=== PATIENT | female | born 1950 | race African-American/Black ===

== ENCOUNTER 2016-05-17 18:05 | Emergency (ER) | payer OTHER, MEDICARE ==
[~2016-05-17] VITALS: Ht 167.6 cm; Wt 83.0 kg
[~2016-05-17 18:05] MED LIST: ADALAT CC90 M1 PO; ALBUTEROL2.5 MG/3 M INH/SOL; AZITHROMYCIN250 M1 PO; BACID CAPLET1 EACH PO; CITRACAL + D M1 EACH PO; COREG25 M1 PO; COZAAR100 M1 PO; CYCLOBENZAPRINE5 M2 PO; CYMBALTA60 M1 PO; DELTASONE20 MG PO; DILANTIN100 M1 PO; DIOVAN40 MG PO; FLOVENT HFA12 G1 INH; KLONOPIN1 M1 PO; LASIX20 M1 PO; LASIX40 M1 PO; LIPITOR40 M1 PO; LYRICA75 M1 PO; MEDROL4 M2 PO; MILK OF MA400 MG/52 PO; NASONEX17 GM NASB; NEXIUM40 M1 PO; NITROSTAT0.4 M1 SL; PERCOCET 5-3251 EACH PO; PREDNISONE10 M2 PO; PREDNISONE20 M1 PO; PREDNISONE50 M1 PO; SPIRIVA18 MCG INH; TYLENOL WITH C1 EACH PO
--- NOTE | 2016-05-17 19:16 | ED GENERAL ADULT ---
History of Present Illness General Chief Complaint: General Adult Stated Complaint: PAIN ALL OVER, FOOT NUMBNESS Source: patient, family, old records Exam Limitations: no limitations Vital Signs & Intake/Output Vital Signs & Intake/Output Vital Signs Date Time Temp Pulse Resp B/P Pulse O2 O2 Flow FiO2 Ox Delivery Rate 05/17 1927 96 Nasal 3.0L Cannula 05/17 1852 98.7 81 22 178/96 88 Room Air Allergies Coded Allergies: SHANI Inhibitors (Severe, ANGIODEMA 05/17/16) Penicillins (Severe, ANGIODEMA 05/17/16) shellfish derived (UNKNOWN PER PT EATS SHRIMP FINE 05/17/16) aspirin (BODY BREAKS OUT IN SWEATS, GI UPSET 05/17/16) Reconcile Medications Albuterol Sulfate 2.5 MG/3 ML VIAL.NEB 1 Vial INH/SHIRA Q4P PRN wheezing/ shortness of breath Atorvastatin Calcium (Lipitor) 40 MG TABLET 1 TAB PO QPM CHOLESTEROL ( Reported) Calcium Citrate/Vitamin D3 (Citracal + D Maximum Caplet) 1 EACH TABLET 1 TAB PO DAILY SUPPLEMENT (Reported) Carvedilol (Coreg) 25 MG TABLET 1 TAB PO BID HEART (Reported) Clonazepam (Klonopin) 1 MG TABLET 1 TAB PO QAM PRN ANXIETY (Reported) Duloxetine HCl (Cymbalta) 60 MG CAPSULE.DR 1 CAP PO DAILY MENTAL HEALTH ( Reported) Esomeprazole (Nexium) 40 MG CAPSULE.DR 1 CAP PO DAILY GI (Reported) Fluticasone Propionate (Flovent Hfa) 12 GM AER.W.ADAP 2 PUF INH BID PRN BREATHING PROBLEMS (Reported) Furosemide (Lasix) 40 MG TABLET 1 TAB PO DAILY HEART FAILURE Reason to Stop at ADM: change to IV Mometasone Furoate (Nasonex) 17 GM SPRAY.PUMP 1 SPRAY NASB DAILY PRN ALLERGIES (Reported) Nifedipine (Adalat Cc) 90 MG TABLET.ER 1 TAB PO DAILY HEART (Reported) Oxycodone HCl/Acetaminophen (Percocet 5-325 MG Tablet) 1 EACH TABLET 1 TAB PO TID PRN PAIN Phenytoin (Dilantin) 100 MG CAPSULE 2 CAP PO BID SEIZURES (Reported) Prednisone (Deltasone) 20 MG TABLET 2 TAB PO ONCE COPD Tiotropium [place] (Spiriva) 18 MCG CAP.W.DEV 1 CAP INH DAILY BREATHING PROBLEMS (Reported) Tylenol With Codeine (Tylenol With Codeine #3 Tablet) 1 EACH TABLET 1 TAB PO TID PRN PAIN (Reported) Valsartan (Diovan) 40 MG TABLET 1 TAB PO BID HEART Triage Note: TRIAGE: PT TO ER C/C PAIN TO BACK AND UNDER HER FOOT. BACK PAIN IS CHRONIC, HAD CORTIZONE SHOT FOR SAME IN ?FEBRUARY WHICH SHE THINKS HAS WORN OFF. FOOT PAIN HAS BEEN APPROX 1 WK. NO KNOWN INJURY. PT PMHX INCLUDES COPD, O2 DEPENDENT AT 3L AT BASELINE. O2 SATS 85% AT TRIAGE, NIECE STATES SHE'S USUALLY IN 90'S BUT "THIS TANK IS ALMOST EMPTY". PT DENIES ANY RESPIRATORY DIFFICULTY AT PRESENT, STATES BREATHING FEELS "ALL RIGHT". Triage Nurses Notes Reviewed? yes HPI: Patient has chronic numbness in both of her hands and her feet for the past few years. Patient states that over the past month and a half she has also felt a numbness in her abdomen and chest. Patient denies any pain. The numbness is constant. There are no aggravating or mitigating factors. There is no shortness of breath. Patient is chronically on home O2. Patient denies any orthopnea. There is no anorexia. There is no nausea or vomiting. Patient became concerned so comes into the emergency department for evaluation. Patient denies any trunk weakness. There is no incontinence of bowel or bladder. Past History Travel History Traveled to [place] past 21 day No Medical History Any Pertinent Medical History? 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 FATHER (CVA). Hx Contributory? No Review of Systems Review of Systems Constitutional: Reports: no symptoms. EENTM: Reports: no symptoms. Respiratory: Reports: no symptoms. Cardiovascular: Reports: no symptoms. GI: Reports: no symptoms. Genitourinary: Reports: no symptoms. Musculoskeletal: Reports: no symptoms. Skin: Reports: no symptoms. Neurological/Psychological: Reports: see HPI. Hematologic/Endocrine: Reports: no symptoms. Immunologic/Allergic: Reports: no symptoms. All Other Systems: Reviewed and Negative Physical Exam Physical Exam General Appearance: well developed/nourished, alert, awake, anxious, mild distress Head: atraumatic, normal appearance Eyes: Bilateral: PERRL, EOMI. Ears, Nose, Throat: normal pharynx, normal ENT inspection, hearing grossly normal Neck: normal inspection, supple, full range of motion Respiratory: normal breath sounds, chest non-tender, no respiratory distress, lungs clear Cardiovascular: regular rate/rhythm, normal peripheral pulses Gastrointestinal: normal bowel sounds, soft, non-tender, no organomegaly Extremities: normal inspection, normal capillary refill, normal range of motion, no edema Neurologic/Psych: no motor/sensory deficits, awake, alert, oriented x 3, normal mood/affect Skin: intact, normal color, warm/dry Core Measures ACS in differential dx? No CVA/TIA Diagnosis: No Severe Sepsis Present: No Septic Shock Present: No Progress Differential Diagnoses I considered the following diagnoses in my evaluation of the patient: [AMI, ELECTROLYTE ABNORMALITY] Plan of Care: Orders Procedure Date/time Status Telemetry/Preforms Laminator 05/17 1911 Active TROPONIN LEVEL 05/17 1911 Complete D-DIMER 05/17 1911 Complete COMPREHENSIVE METABOLIC PANEL 05/17 1911 Complete CBC WITHOUT DIFFERENTIAL 05/17 1911 Complete EKG 05/17 1911 Active Laboratory Tests 05/17/161930: Anion Gap 6, Estimated GFR 35 L, BUN/Creatinine Ratio 17.3, Glucose 81, Calcium 8.7, Total Bilirubin 0.4, AST 34, ALT 45, Alkaline Phosphatase 130 H, Troponin I 0.04, Total Protein 7.0, Albumin 3.5, Globulin 3.5, Albumin/Globulin Ratio 1.0 L, D-Dimer 277 H, CBC w Diff NO MAN DIFF REQ, RBC 4.74, MCV 78.0 L, MCH 25.6 L, RDW 16.9 H, MPV 7.4, Gran % 61.0, Lymphocytes % 24.7, Monocytes % 11.7 H, Eosinophils % 2.5, Basophils % 0.1, Absolute Granulocytes 4.0, Absolute Lymphocytes 1.6, Absolute Monocytes 0.8 H, Absolute Eosinophils 0.2, Absolute Basophils 0, PUBS MCHC 32.8 L Diagnostic Imaging: Viewed by Me: Radiology Read. Discussed w/RAD: Radiology Read. CXR Impression: PATIENT: JUNIOR ASENCIO PRESENT AGE: 66 PATIENT ACCOUNT NO: [id number] : 49 LOCATION: [facility] ORDERING PHYSICIAN: MAICO PALACIOS MD SERVICE DATE: 05/17/16 EXAM TYPE: RAD - XRY- PORTABLE CHEST XRAY EXAMINATION: XR PORTABLE CHEST CLINICAL INFORMATION: Chest pain. COMPARISON: Chest x-ray 11/15/2015. TECHNIQUE: Portable AP view of the chest was obtained. FINDINGS: Single AP view of the chest demonstrates pulmonary hypoinflation. There is minimal dependent subsegmental atelectasis. Redemonstrated is prominence of the cardiac silhouette and mild central venous congestion. No overt pulmonary edema is identified. There are median sternotomy wires, grossly unchanged. Soft tissues appear unremarkable. No acute osseous abnormality is identified. IMPRESSION: Stable prominence of the cardiac silhouette, without overt pulmonary edema. Mild pulmonary hypoinflation with minimal dependent atelectasis. DICTATED BY: KAVITHA SAEED MD DATE/TIME DICTATED:05/17/162022 PUBLISHER ASSISTANT:EDIS DATE/TIME TRANSCRIBED:2022 CONFIDENTIAL, DO NOT COPY WITHOUT APPROPRIATE AUTHORIZATION. < Electronically signed in Other Vendor System> SIGNED BY: KAVITHA SAEED MD 05/17/162026 Initial ED EKG: NSR, LVH, nonspecific ST T wave chg Prior EKG: unchanged Rhythm Strip: normal sinus rhythm Comments: No evidence of transverse myelitis or other central neurological etiology. Departure Departure Disposition: HOME OR SELF CARE Condition: Stable Clinical Impression Primary Impression: Chest pain, unspecified Qualifiers: Chest pain type: other chest pain Qualified Code: R07.89 - Other chest pain Referrals: SHELLY TRUONG MD (PCP/Family) Additional Instructions: RETURN IF SYMPTOMS WORSEN OR NEEDED Departure Forms: Customer Survey General Discharge Information Critical Care Note Critical Care Note Critical Care Time: non-applicable
[2016-05-17 19:52] LABS: ABSOLUTE BASOPHIL COUNT 0 /CUMM (0.0-0.2); ABSOLUTE EOSINOPHIL COUNT 0.2 /CUMM (0.0-0.7); ABSOLUTE LYMPH COUNT 1.6 /CUMM (1.2-3.4); ABSOLUTE MONOCYTE COUNT 0.8 /CUMM (0.10-0.60); BASOPHIL % 0.1 % (0.0-2.0); EOSINOPHIL % 2.5 % (0-5); MEAN CORPUSCULAR HGB 25.6 PG (27.0-31.0); MEAN CORPUSCULAR HGB CONC 32.8 G/DL (33.0-37.0); MEAN PLATELET VOLUME 7.4 FL (7.4-10.4); PLATELET COUNT 165 /CUMM (130-400); RBC DISTRIBUTION WIDTH 16.9 % (11.5-14.5); RED BLOOD CELL CT 4.74 /CUMM (4.20-5.40); WHITE BLOOD CELL COUNT 6.6 /CUMM (4.8-10.8)
--- NOTE | 2016-05-17 20:27 | RADIOLOGY REPORT ---
EXAMINATION: XR PORTABLE CHEST CLINICAL INFORMATION: Chest pain. COMPARISON: Chest x-ray 11/15/2015. TECHNIQUE: Portable AP view of the chest was obtained. FINDINGS: Single AP view of the chest demonstrates pulmonary hypoinflation. There is minimal dependent subsegmental atelectasis. Redemonstrated is prominence of the cardiac silhouette and mild central venous congestion. No overt pulmonary edema is identified. There are median sternotomy wires, grossly unchanged. Soft tissues appear unremarkable. No acute osseous abnormality is identified. IMPRESSION: Stable prominence of the cardiac silhouette, without overt pulmonary edema. Mild pulmonary hypoinflation with minimal dependent atelectasis.
[2016-05-17 20:49] VITALS: BP 165/90
== END 2016-05-17 21:00 ==
LOC: ERH 18:05
PROVIDERS: Emergency Medicine
DX: R07.9 Chest pain, unspecified (principal)
CPT/HCPCS: 93005; 93010

== ENCOUNTER 2016-05-19 22:37 | Inpatient (IN) | payer OTHER, MEDICARE ==
[~2016-05-19] VITALS: Ht 162.6 cm; Wt 83.0 kg
--- NOTE | 2016-05-19 22:52 | ED CARDIAC/CP/PALPITATIONS ---
History of Present Illness General Chief Complaint: Chest Pain Stated Complaint: SOB,CHEST PRESSURE Source: patient, family Exam Limitations: no limitations Vital Signs & Intake/Output Vital Signs & Intake/Output Vital Signs Date Time Temp Pulse Resp B/P Pulse O2 O2 Flow FiO2 Ox Delivery Rate 05/19 2338 77 22 149/80 93 Nasal 3.0L Cannula 05/19 2315 Nasal Cannula 05/19 2308 97.3 84 22 166/94 94 Nasal 3.0L Cannula ED Intake and Output 05/20 0000 05/19 1200 Intake Total 0 Output Total Balance 0 Intake, Oral 0 Patient 180 lb Weight Allergies Coded Allergies: SHANI Inhibitors (Severe, ANGIODEMA 05/17/16) Penicillins (Severe, ANGIODEMA 05/17/16) shellfish derived (UNKNOWN PER PT EATS SHRIMP FINE 05/17/16) aspirin (BODY BREAKS OUT IN SWEATS, GI UPSET 05/17/16) Reconcile Medications Albuterol Sulfate (Proair Hfa) 90 MCG HFA.AER.AD 2 PUF INH PRN RESPIRATORY ( Reported) Albuterol Sulfate 2.5 MG/3 ML VIAL.NEB 1 Vial INH/SHIRA Q4P PRN wheezing/ shortness of breath Atorvastatin Calcium (Lipitor) 40 MG TABLET 1 TAB PO QPM CHOLESTEROL ( Reported) Calcium Citrate/Vitamin D3 (Citracal + D Maximum Caplet) 1 EACH TABLET 1 TAB PO DAILY SUPPLEMENT (Reported) Carvedilol (Coreg) 25 MG TABLET 1 TAB PO BID HEART (Reported) Clonazepam (Klonopin) 1 MG TABLET 1 TAB PO QAM PRN ANXIETY (Reported) Duloxetine HCl (Cymbalta) 60 MG CAPSULE.DR 1 CAP PO DAILY MENTAL HEALTH ( Reported) Fluticasone Propionate (Flovent Hfa) 12 GM AER.W.ADAP 2 PUF INH BID PRN BREATHING PROBLEMS (Reported) Fluticasone/Vilanterol (Breo Ellipta 100-25 Mcg INH) 100 MCG-25 MCG/DOSE BLST.W.DEV 1 PUFF INH DAILY RESPIRATORY (Reported) Furosemide (Lasix) 40 MG TABLET 1 TAB PO DAILY HEART FAILURE Reason to Stop at ADM: change to IV Gabapentin 100 MG CAPSULE 1 CAP PO TID UNKNOWN (Reported) Metoprolol Tartrate 50 MG TABLET 1 TAB PO BID HEART/BP (Reported) Mometasone Furoate (Nasonex) 17 GM SPRAY.PUMP 1 SPRAY NASB DAILY PRN ALLERGIES (Reported) Nifedipine (Adalat Cc) 90 MG TABLET.ER 1 TAB PO DAILY HEART (Reported) Omeprazole 40 MG CAPSULE.DR 1 CAP PO DAILY GI (Reported) Phenytoin (Dilantin) 100 MG CAPSULE 2 CAP PO BID SEIZURES (Reported) Tiotropium [place] (Spiriva) 18 MCG CAP.W.DEV 1 CAP INH DAILY BREATHING PROBLEMS (Reported) Tylenol With Codeine (Tylenol With Codeine #3 Tablet) 1 EACH TABLET 1 TAB PO TID PRN PAIN (Reported) Valsartan (Diovan) 40 MG TABLET 1 TAB PO BID HEART Triage Nurses Notes Reviewed? yes Onset: Gradual Duration: day(s): Timing: recent history Quality/Severity: moderate Location: central Radiation: no radiation Activities at Onset: none Prior Chest Pain/Card Workup: cabg Aspirin Today: no aspirin today, pt allergic Associated Symptoms: chest pressure, weakness HPI: 66 yo woman with copd, on 3 liters, h/o cabg, diabetes, Presents with chest pressure, shortness of breath, orthopnea. She states, "it feels like someone is standing on my chest, and I can't breathe." She notes that she has had these symptoms intermittently for the past 1-2 days. She has no fever chills sputum. She does note increased weakness and feels, "swollen all over." Past History Travel History Traveled to [place] past 21 day No Medical History Any Pertinent Medical History? 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 FATHER (CVA). Hx Contributory? No Review of Systems Review of Systems Constitutional: Reports: no symptoms. EENTM: Reports: no symptoms. Respiratory: Reports: no symptoms. Cardiovascular: Reports: no symptoms. GI: Reports: no symptoms. Genitourinary: Reports: no symptoms. Musculoskeletal: Reports: no symptoms. Skin: Reports: no symptoms. Neurological/Psychological: Reports: no symptoms. Hematologic/Endocrine: Reports: no symptoms. Immunologic/Allergic: Reports: no symptoms. All Other Systems: Reviewed and Negative Physical Exam Physical Exam General Appearance: well developed/nourished, mild distress, moderate distress Head: atraumatic, normal appearance Eyes: Bilateral: normal appearance. Ears, Nose, Throat: normal pharynx, normal ENT inspection Neck: normal inspection, supple, full range of motion Respiratory: normal breath sounds, diminished breath sounds at bases Cardiovascular: regular rate/rhythm Gastrointestinal: normal bowel sounds, soft, non-tender Extremities: trace edema bilaterally Skin: intact, normal color, warm/dry Core Measures ACS in differential dx? Yes ASA ordered for poss ACS? No-d/t known allergy Severe Sepsis Present: No Septic Shock Present: No Progress Differential Diagnosis: AMI, CHF/pulm edema, unstable angina, vs other Plan of Care: Orders Procedure Date/time Status Nothing by Mouth 05/20 B Active RAPID VIRAL INFLUENZA A 05/20 0120 Active URINE DRUGS OF ABUSE 05/20 0119 Active URINALYSIS 05/20 0119 Active Patient Data 05/20 0000 Active Saline Lock 05/19 2355 Active Misc Message 05/19 2355 Active ED Holding Orders 05/19 2355 Active Admit to inpatient 05/19 2355 Active Vital Signs 05/19 2355 Active BLOOD CULTURE 05/19 2355 Active Code Status 05/19 2355 Active EKG 05/19 2354 Active BLOOD CULTURE 05/19 2353 Active Intake & Output 05/19 2310 Active D-DIMER 05/19 2241 Complete TROPONIN LEVEL 05/19 2239 Complete PARTIAL THROMBOPLASTIN TIME 05/19 224 Complete PROTHROMBIN TIME 05/19 224 Complete COMPREHENSIVE METABOLIC PANEL 05/19 224 Complete CBC WITHOUT DIFFERENTIAL 05/19 2239 Complete B-TYPE NATRIURETIC PEP (BNP) 05/19 2239 Complete EKG 05/19 224 Active Laboratory Tests 05/19/16 2304: D-Dimer 242 H 05/19/16 2304: Anion Gap 7, Estimated GFR 38 L, BUN/Creatinine Ratio 15.7, Glucose 95, Calcium 8.2 L, Total Bilirubin 0.3, AST 30, ALT 35, Alkaline Phosphatase 113, Troponin I 0.03, [id number]-V-Gpavpbufvbg Pept 1820 H, Total Protein 6.7, Albumin 3.2 L, Globulin 3.5, Albumin/Globulin Ratio 0.9 L, PT 10.7, INR 1.02, APTT 31, CBC w Diff NO MAN DIFF REQ, RBC 4.65, MCV 78.6 L, MCH 25.9 L, RDW 16.9 H, MPV 7.6, Gran % 59.4, Lymphocytes % 27.7, Monocytes % 10.9 H, Eosinophils % 2.0, Basophils % 0 L, Absolute Granulocytes 3.9, Absolute Lymphocytes 1.8, Absolute Monocytes 0.7 H, Absolute Eosinophils 0.1, Absolute Basophils 0, PUBS MCHC 33.0 Microbiology 05/20 012 NASOPHARYN: Influenza Virus A & B Rapid Smear - ORD 05/20 41 BLOOD: Blood Culture - RECD 05/20 39 BLOOD: Blood Culture - RECD Diagnostic Imaging: Viewed by Me: Radiology Read. Discussed w/RAD: Radiology Read. CXR Impression: no acute abnormality, no infiltrates, normal size heart, normal mediastinum Initial ED EKG: deeper st depression v5 compared to prior Comments: PATIENT: JUNIOR ASENCIO PRESENT AGE: 66 PATIENT ACCOUNT NO: [id number] : 49 LOCATION: [facility] ORDERING PHYSICIAN: NANCY PLUNKETT MD SERVICE DATE: 05/19/16 EXAM TYPE: RAD - XRY-PORTABLE CHEST XRAY EXAMINATION: XR PORTABLE CHEST CLINICAL INFORMATION: Chest pain. COMPARISON: Chest x-ray 05/17/2016 TECHNIQUE: Portable AP view of the chest was obtained. 11:12 PM FINDINGS: Status post median sternotomy. Cardiomegaly. No pulmonary vascular congestion. Lungs are clear. No pleural effusion. IMPRESSION: No acute abnormality the chest. DICTATED BY: BRENDAN PRIEST MD DATE/TIME DICTATED:05/19/162323 OSTEOLOGY TEACHER:EDIS DATE/TIME TRANSCRIBED:05/19/162323 CONFIDENTIAL, DO NOT COPY WITHOUT APPROPRIATE AUTHORIZATION. <Electronically signed in Other Vendor System> SIGNED BY: BRENDAN PRIEST MD 05/19/162328 Departure Departure Disposition: STILL A PATIENT Condition: Stable Clinical Impression Primary Impression: Unstable angina Secondary Impressions: COPD exacerbation Referrals: SHELLY TRUONG MD (PCP/Family) Departure Forms: Customer Survey General Discharge Information Admission Note Spoke With: CHILO VALDOVINOS,[facility] Documentation of Exam: Documentation of any treatments & extenuating circumstances including Concerns Regarding Discharge (functional status, medication knowledge or non-compliance, living conditions, etc.) that warrant an admission rather than observation: pt with several risk factors.... diabetes, coronary artery disease, copd... now with chest pressure and subtle, non-specific ekg changes.... also with wheezing and increased sputum....pt merits increased 02 support, nebs, iv abx, nitrates, telemetry to assess for arrythmia and serial trops to assess for AL. stable to tele. Critical Care Note Critical Care Note Critical Care Time: 30-74 min Comments: pt felt better with nitro x 3. no aspirin given due to severe allergy. pt also with significant wheezing with phlegm, consistent with copd exacerbation...
[2016-05-19 23:18] LABS: ABSOLUTE BASOPHIL COUNT 0 /CUMM (0.0-0.2); ABSOLUTE EOSINOPHIL COUNT 0.1 /CUMM (0.0-0.7); ABSOLUTE GRANULOCYTE CT 3.9 /CUMM (1.4-6.5); ABSOLUTE LYMPH COUNT 1.8 /CUMM (1.2-3.4); ABSOLUTE MONOCYTE COUNT 0.7 /CUMM (0.10-0.60); BASOPHIL % 0 % (0.0-2.0); GRANULOCYTE % 59.4 % (42.2-75.2); HEMATOCRIT 36.5 % (37-47); MEAN CORPUSCULAR HGB 25.9 PG (27.0-31.0); MEAN CORPUSCULAR VOLUME 78.6 FL (81.0-99.0); MEAN PLATELET VOLUME 7.6 FL (7.4-10.4); PLATELET COUNT 163 /CUMM (130-400); RBC DISTRIBUTION WIDTH 16.9 % (11.5-14.5); RED BLOOD CELL CT 4.65 /CUMM (4.20-5.40); WHITE BLOOD CELL COUNT 6.5 /CUMM (4.8-10.8)
[2016-05-19] MEDS ORDERED: OMEPRAZOLE40 M1 PO (23:18)
[2016-05-19] MEDS ORDERED: BREO ELLIPTA 11 EACH INH (23:18)
[2016-05-19] MEDS ORDERED: METOPROLOL TART50 M1 PO (23:19)
[2016-05-19] MEDS ORDERED: GABAPENTIN100 M2 PO (23:19)
[2016-05-19] MEDS ORDERED: PROAIR HFA8.5 GM INH (23:20)
[2016-05-19 23:22] LABS: PT 10.7 SEC (9.4-12.5); PTT 31 SEC (25-37)
--- NOTE | 2016-05-19 23:29 | RADIOLOGY REPORT ---
EXAMINATION: XR PORTABLE CHEST CLINICAL INFORMATION: Chest pain. COMPARISON: Chest x-ray 05/17/2016 TECHNIQUE: Portable AP view of the chest was obtained. 11:12 PM FINDINGS: Status post median sternotomy. Cardiomegaly. No pulmonary vascular congestion. Lungs are clear. No pleural effusion. IMPRESSION: No acute abnormality the chest.
--- NOTE | 2016-05-20 02:07 | History & Physical ---
CHATA VALDOVINOS,JEREMY 05/20/16 0151: General Information and HPI MD Statement: I have seen and personally examined JUNIOR ASENCIO and documented this H&P. The patient is a 66 year old F who presented with a patient stated chief complaint of [Chest pressure]. Source of Information: patient, old records, friend Exam Limitations: poor historian History of Present Illness: This is a 66 yo female with PMH significant for COPD on 3 L O2, HTN, HLD, HFpEF, rheumatic aortic stenosis s/p bioprosthetic valve in 08/2015, cardiac cath in 2016 showing no evidence of CAD, diabetes not on any home medication, degenerative disc disease, who comes in with CC of chest pressure. Patient states that for the past 2-3 days she has had worsening chest pressure and today the pressure/pain peaked at a 9 out of 10 an hour or two before she came to the emergency department. The discomfort seems to be there persistently, worsens with exertion and is not re-produceable to palpation. In ED she was given nitro x3 and found some relief in chest pressure. She also endorses worsening SOB with exertion. Of note, she also came to the ED around 2 days ago for a complaint of worsening lower extremity numbness and shooting pain. At that time, she was not admitted and was to follow-up with her PCP. Patient continues to endorse the numbness and shooting pains that start at her feet and up to her abdomen. In addition, she endorses increasing lower extremity edema and weakness.She denies any worsening orthopnea, fever, chills, dysuria, hematuria, diarrhea, nausea, vomiting, syncope, seizure, increased sputum production from baseline, or hemoptysis. Her only complaints at this time are chest pressure, increasing shortness of breath with exertion, increased LE swelling and shooting pain in LE up to abdomen. Last admission at for patient was on 10/2015 for hypercarbic hypoxic respiratory failure with possible component of CHF. Previous admission on 2015 she was treated for CHF secondary to medication noncompliance, at that time she also received 1 dose of Narcan with resultant improvement in respiratory status. Patient continues to smoke, up to 8-10 cigarettes per day. Denies alcohol or IV drug abuse. She is current with her flu shot and she was seen by Dr. Gamez on 05/01/2016 for an echocardiogram. She has allergy to aspirin, SHANI inhibitor, penicillin and shellfish. Allergies/Medications Allergies: Coded Allergies: SHANI Inhibitors (Severe, ANGIODEMA 05/17/16) Penicillins (Severe, ANGIODEMA 05/17/16) shellfish derived (UNKNOWN PER PT EATS SHRIMP FINE 05/17/16) aspirin (BODY BREAKS OUT IN SWEATS, GI UPSET 05/17/16) Home Med list Albuterol Sulfate (Proair Hfa) 90 MCG HFA.AER.AD 2 PUF INH PRN RESPIRATORY ( Reported) Albuterol Sulfate 2.5 MG/3 ML VIAL.NEB 1 Vial INH/SHIRA Q4P PRN wheezing/ shortness of breath Atorvastatin Calcium (Lipitor) 40 MG TABLET 1 TAB PO QPM CHOLESTEROL ( Reported) Calcium Citrate/Vitamin D3 (Citracal + D Maximum Caplet) 1 EACH TABLET 1 TAB PO DAILY SUPPLEMENT (Reported) Carvedilol (Coreg) 25 MG TABLET 1 TAB PO BID HEART (Reported) Clonazepam (Klonopin) 1 MG TABLET 1 TAB PO QAM PRN ANXIETY (Reported) Duloxetine HCl (Cymbalta) 60 MG CAPSULE.DR 1 CAP PO DAILY MENTAL HEALTH ( Reported) Fluticasone Propionate (Flovent Hfa) 12 GM AER.W.ADAP 2 PUF INH BID PRN BREATHING PROBLEMS (Reported) Fluticasone/Vilanterol (Breo Ellipta 100-25 Mcg INH) 100 MCG-25 MCG/DOSE BLST.W.DEV 1 PUFF INH DAILY RESPIRATORY (Reported) Furosemide (Lasix) 40 MG TABLET 1 TAB PO DAILY HEART FAILURE Reason to Stop at ADM: change to IV Gabapentin 100 MG CAPSULE 1 CAP PO TID UNKNOWN (Reported) Metoprolol Tartrate 50 MG TABLET 1 TAB PO BID HEART/BP (Reported) Mometasone Furoate (Nasonex) 17 GM SPRAY.PUMP 1 SPRAY NASB DAILY PRN ALLERGIES (Reported) Omeprazole 40 MG CAPSULE.DR 1 CAP PO DAILY GI (Reported) Phenytoin (Dilantin) 100 MG CAPSULE 2 CAP PO BID SEIZURES (Reported) Tiotropium [place] (Spiriva) 18 MCG CAP.W.DEV 1 CAP INH DAILY BREATHING PROBLEMS (Reported) Tylenol With Codeine (Tylenol With Codeine #3 Tablet) 1 EACH TABLET 1 TAB PO TID PRN PAIN (Reported) Valsartan (Diovan) 40 MG TABLET 1 TAB PO BID HEART Compliance With Home Meds: GOOD Past History Travel History Traveled to [place] past 21 day No Medical History Neurological: SEIZURES EENT: NONE Cardiovascular: CAD, hypertension, hyperlipidemia, DIASTOLIC CHF SUPRA AORTIC VALVULAR MEMBRANE Respiratory: COPD, emphysema, O2 DEP 3L Gastrointestinal: NONE Hepatic: NONE Renal: NONE Musculoskeletal: disk herniation Psychiatric: anxiety, depression Endocrine: diabetes Blood Disorders: NONE Cancer(s): NONE 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 FATHER (CVA). Psychosocial History Who Do You Live With? sister Services at Home: Oxygen Primary Language: Martiniquais Smoking Status: Current Everyday Smoker ETOH Use: denies use Illicit Drug Use: denies illicit drug use Functional Ability ADLs Independent: dressing, eating, toileting, bathing. Ambulation: walker IADLs Needs Assist: shopping, housework, finances, food prep, telephone, transportation, medication admin. Review of Systems Review of Systems Constitutional: Reports: weakness. Denies: chills, diaphoresis, fever, malaise. EENTM: Reports: no symptoms. Cardiovascular: Reports: chest pain, edema, orthopena, peripheral edema. Denies: palpitations, syncope. Respiratory: Reports: cough, orthopnea, short of breath, sputum production, wheezing. Denies : hemoptysis, stridor. GI: Reports: no symptoms. Genitourinary: Reports: no symptoms. Musculoskeletal: Reports: back pain, joint pain, muscle stiffness. Skin: Reports: no symptoms. Exam & Diagnostic Data Last 24 Hrs of Vital Signs/I&O Vital Signs Date Time Temp Pulse Resp B/P Pulse O2 O2 Flow FiO2 Ox Delivery Rate 05/20 0153 97.8 78 20 122/80 94 Nasal 3.0L Cannula 05/19 2338 77 22 149/80 93 Nasal 3.0L Cannula 05/19 2315 Nasal Cannula 05/19 2308 97.3 84 22 166/94 94 Nasal 3.0L Cannula Intake & Output 05/20 0800 05/20 0000 05/19 1600 Intake Total 0 Output Total Balance 0 Intake, Oral 0 Patient 81.647 kg Weight Physical Exam General Appearance Alert, Oriented X3, Cooperative, No Acute Distress Skin No Rashes, No Breakdown, No Significant Lesion HEENT Atraumatic, EOMI, Mucous Membr. moist/pink, pinpoint pupils Cardiovascular Regular Rate, Normal S1, Normal S2, No Murmurs, heart sounds were difficult to appreciate given significant wheezing Lungs patient had restricted movement of air bilateral. In addition, she had prolonged expiratory component with wheeze. She also had some crackles Abdomen Soft, tenderness to deep palpation in right quadrant. In the bilateral lower quadrants to deep palpation patient stated that pressure radiated to her back Neurological Normal Speech, Cranial Nerves 3-12 NL Extremities 1+bilat lower extremity edema Vascular Normal Pulses Last 24 Hrs of Labs/Marcin: Laboratory Tests 05/20/16 0145: Methadone Screen Pending, Barbiturate Screen Pending, Ur Phencyclidine Scrn Pending, Amphetamines Screen Pending, U Benzodiazepines Scrn Pending, Urine Cocaine Screen Pending, Urine Cannabis Screen Pending, Urine Color Pending, Urine Clarity Pending, Urine pH Pending, Ur Specific [place] Pending, Urine Protein Pending, Urine Ketones Pending, Urine Nitrite Pending, Urine Bilirubin Pending, Urine Urobilinogen Pending, Ur Leukocyte Esterase Pending, Ur Microscopic SEDIMENT EXAMINED, Urine RBC Pending, Urine Hemoglobin Pending, Urine Glucose Pending 05/19/16 2304: D-Dimer 242 H 05/19/16 2304: Anion Gap 7, Estimated GFR 38 L, BUN/Creatinine Ratio 15.7, Glucose 95, Calcium 8.2 L, Total Bilirubin 0.3, AST 30, ALT 35, Alkaline Phosphatase 113, Troponin I 0.03, Bun-S-Wabwhgotxvx Pept 1820 H, Total Protein 6.7, Albumin 3.2 L, Globulin 3.5, Albumin/Globulin Ratio 0.9 L, PT 10.7, INR 1.02, APTT 31, CBC w Diff NO MAN DIFF REQ, RBC 4.65, MCV 78.6 L, MCH 25.9 L, RDW 16.9 H, MPV 7.6, Gran % 59.4, Lymphocytes % 27.7, Monocytes % 10.9 H, Eosinophils % 2.0, Basophils % 0 L, Absolute Granulocytes 3.9, Absolute Lymphocytes 1.8, Absolute Monocytes 0.7 H, Absolute Eosinophils 0.1, Absolute Basophils 0, PUBS MCHC 33.0 Microbiology 05/20 0150 NASOPHARYN: Influenza Virus A & B Rapid Smear - RECD 05/20 41 BLOOD: Blood Culture - RECD 05/20 39 BLOOD: Blood Culture - RECD Assessment/Plan Assessment: This is a 66-year-old female with past medical history significant for hypertension, hyperlipidemia, diastolic CHF, COPD on 3 L O2, aortic valve replacement, and recent echo showing moderate to severe pulmonary hypertension who presents with chief complaint of chest pressure. In addition she has some mild shortness of breath and lower extremity edema. At the present time, it is unclear whether patient's symptoms are secondary to [place], CHF, COPD or valvular etiology. Will admit to telemetry for further workup and management. EKG: Heart rate 65, QTC 434, in normal sinus rhythm. Patient has known ST, T- wave changes, in addition to right bundle branch block and evidence of LVH present in old and new EKG. Chest x-ray: Showed clear lungs with no evidence of fluid overload/effusion. There was some noted cardiomegaly. PLAN: 1. Chest pressure: Patient comes in with chief complaint of new onset worsening chest pressure for the past 2 days. In ED pain was relieved by nitroglycerin. She states that she has never had this kind of pain before. In 2016 a cath showed no evidence of CAD. Echo in April 2016 showed small left ventricular activity, LVH, EF greater than 70, [id number] aortic stenosis, moderate to severe pulmonary hypertension, and stage I diastolic dysfunction. Possibly etiology for chest pressure in this patient include worsening pulmonary hypertension, worsening aortic stenosis, or CHF versus COPD exacerbation. Her chest x-ray shows clear lungs and no acute abnormality of chest then cardiomegaly. First troponin was negative. BNP was 1820. * EKG and troponin * Cardiology consult * IV Lasix 40 mg * Monitor on telemetry * Strict I's and O's * Hold off on echocardiogram 2. Shortness of breath: Patient has history of COPD on 3 L O2. In the ED she was satting 94-95% at her baseline 3 L. She is still a current smoker with up to 8-10 cigarettes a day. She is afebrile with normal white count. Denies any sick contacts and is up-to-date with flu shot. D-dimer 242. On physical exam she does have prolonged expiratory phase with wheezes and rhonchi. Patient states that she does have increasing shortness of breath with exertion in the past few days. Patient does have a history of improving respiratory status after a dose of Narcan during her admission on 09/2015. She takes Tylenol No. 3 for chronic back pain. * Continue 3 L O2 by NC and titrate up as necessary for an O2 sat of 92% * TRC * Mucinex * Lower respiratory culture * Azithromycin 250 mg by mouth daily * Steroid taper: 40 mg 1, 30 mg 1, 20 mg 1, 10 mg 1. * Rapid flu test * U tox * Hold opiates * One dose of Narcan 3. Acute renal failure: Patient comes in with BUN 22, creatinine 1.4. Her baseline seems to be around 1. Presently, etiology of the acute renal failure is unclear. Patient states she's been compliant with all her medication. * UA * UC * U tox * Monitor closely after dose of Lasix 4. Hypertension/hyperlipidemia: In ED patient had blood pressure of 166/94. Otherwise, chronic and stable. * Continue Lipitor * Con't Lopressor 50 mg po bid * Con't Coreg 25 mg po bid 5. Numbness and shooting pain: Patient states that she has worsening numbness and shooting pain in her lower extremities up to her abdomen for the past 2 days. She is taking gabapentin and Tylenol with no relief. She does endorse a history of diabetes, however states that she is on no medication;last A1c on June 2015 was 6.6. Patient also reports degenerative disc disease and disc be etiology of her complaint. * Continue gabapentin * Hold Tylenol 3 for the moment * Con't Cymbalta 60 mg po daily 7. Abdominal pain: Patient seems to have some nonspecific abdominal pain to deep palpation. She denies any GI concerns at this time. She is eating normally, has nml bowel function and is urinating normally. She does state that with deep palpation she feels some pressure in her back. Presently unsure of significance of the physical finding. * Continue to monitor clinically * If abdominal pain worsens, consider CT of the abdomen. 6. History of seizures: Chronic and stable. Patient states her last seizure was in 1998. * Continue Phenytoin 200mg po bid Full code Heart healthy diet Chemical DVT prophylaxis As Ranked By This Provider Problem List: 1. Chest pain, unspecified 2. Unstable angina 3. Acute respiratory failure with hypoxia and hypercarbia 4. Diabetes mellitus Core Measures/Miscellaneous Acute Coronary Syndrome ACS Diagnosis: No Cerebrovascular Accident CVA/TIA Diagnosis: No Congestive Heart Failure CHF Diagnosis: No Venous Thromboembolism VTE Risk Factors: Acute medical illness, Age > 40 VTE Prophylaxis Ordered Inpt: Pharm- Lovenox No Mech VTE prophylaxis d/t: No contraindications No VTE Pharm Prophylaxis d/t: No contraindications VTE Diagnosis: No VTE Type: NONE VTE Confirmed by (Test): NONE Severe Sepsis Severe Sepsis Present: No Septic Shock Septic Shock Present: No Miscellaneous Documentation Attending Case Discussed With: JOVANNA WOO MD Primary Care Physician: SHELLY TRUONG MD Patient sees these Specialists unknown Level of Patient Care: Telemetry Consults Needed: Consulting Specialty: Cardiology BEVERLY OLIVARES MD 05/20/16 0254: Resident Review Statement Resident Statement: examined this patient, discussed with advertising internship, agreed with advertising internship, discussed with family, reviewed EMR data (avail), discussed with nursing , discussed with case mgmt, reviewed images, amended to note Other Findings: This is a 66-year-old female with a past medical history of hypertension, hyperlipidemia is a resistant infection heart failure, rheumatic heart disease status post bioprosthetic aortic valve replacement, bilateral neuropathy, who presents to the [facility] with persistent chest pressure and and shortness of breath that was associated with bilateral expiratory wheezing and crackles. The patient also had experience abdominal pain and numbness and tingling of her legs along with the symptoms Vitals at the time of admission Blood pressure 168/80, respiration rate of 16, pulse rate of 73, temperature 98.4, oxygen flow rate of 3 L and saturation of 92% Labs shows Normal WBC, electrolyte panel shows sodium 140, potassium 3.9, chloride 101 ProBNP of 1800 EKG showed minor T-wave inversions Chest x-ray unremarkable for any underlying lung pathology Assessment 1. Acute hypoxic respiratory distress most likely from acute on chronic CHF 2. History of COPD, with a component of COPD exacerbation on this admission 3. History of hypertension 4. History of bilateral neuropathy 5. Acute EKG changes Plan Admit to telemetry floor for acute EKG changes For the patient's hypoxia and respiratory distress which is most likely from fluid overload. Start the patient on IV Lasix 40 mg 1 time dose and in the morning we will reassess her kidney functions and her respiratory status a worsening we will consider starting her on the IV dose of Lasix 20 mg Rule out acute coronary syndrome with serial troponins and EKG Start the patient on low-dose prednisone taper 40 mg daily No need to repeat a transthoracic echocardiogram Continue with other home medications Hold the losartan onto the kidney function normalizes Daily strict in's and O's with recent electrolyte panel DVT prophylaxis at all times with patient is full code CHILO VALDOVINOS, [facility] 05/20/16 0631: Attending MD Review Statement Attending Statement Attending MD Statement: examined this patient, discuss w/resident/PA/OPERATIONS PROGRAM MANAGER, agreed w/resident/PA/OPERATIONS PROGRAM MANAGER Attending Assessment/Plan: 66 yo AA F smoker, with h/o HTN, T2DM, chronic diastolic CHF, COPD on 3L, chronic back pain, rheumatic aortic stenosis s/p AVR, seizures on dilantin, last admitted to [facility] (Oct 2015) for respiratory failure 2/2 COPDE, was seen in ER 2 days prior for chest pressure with negative work up, returns today for chest pressure, cough and wheezing. B/l LE edema+. She reports compliance with her medications. C/o tingling/ numbness and shooting pains in her feet. VSS, on baseline O2 of 3L. JVD+. Chest b/l basilar crackles, otherwise clear. Labs: microcytic anemia, bicarb 32, BUN 22, creat 1.4 (baseline 1.0 1.1), trop neg, proBNP 1820, CXR neg. EKG: SR, LBBB, nonspecific ST-T changes. Echo (Apr 2016): EF > 70%, stage 1 diastolic dysfunction, pulmonary hypertension. 1. Chest pressure, evaluate for ACS. Tele admit, serial EKG and troponin, no need to repeat Echo, Obtain cardio consult. Pain was relieved with nitro. 2. Chronic respiratory failure with dyspnea on exertion with wheezing/cough likely mild COPD exacerbation, with acute on chronic diastolic CHF exacerbation and pulmonary hypertension. TRC nebs, sputum culture, rapid prednisone taper, no need for azithro, IV lasix 40 mg monitor urine output, resume PO lasix in AM. Smoking cessation counseling. Check urine tox screen. Pulm consult in AM. 3. If abdominal discomfort persists, consider imaging. Check amylase, lipase. DVT ppx Hep SC. Full code.
[2016-05-20 02:35] VITALS: BP 160/98
--- NOTE | 2016-05-20 06:26 | Admission Certification ---
Admission Certification Certification Statement - As attending physician, I certify that at the time of - admission, based on clinical presentation, severity of - symptoms, need for further diagnostic testing and - therapeutic interventions, and risk of adverse outcomes - without in-hospital treatment, in my clinical assessment, - this patient requires an acute hospital stay for a minimum - of two nights or longer. I have also considered psychsocial - factors such as support system, advanced age, financial - issues, cognitive issues, and failed out-patient treatments, - past re-admission history, safety of patient, and lack of - compliance as applicable. Specific rationale supporting this admission is: Dyspnea on exertion and chest pressure, likely 2/2 COPD vs. CHF exacerbation.
[2016-05-20 08:45] VITALS: BP 162/78
--- NOTE | 2016-05-20 10:35 | Cons- Pulmonary ---
General Information and HPI Consulting Request Date of Consult: 05/20/16 Requested By: Dr. Craig Reason for Consult: COPD history, dyspnea Source of Information: patient Exam Limitations: no limitations History of Present Illness: 66 year old woman. Known to me from the office. Admitted with dyspnea. Attends wellness clinic. Still smoking. History of CHF, pulmonary htn, AV bioprosthesis, hypoxemic and hypercarbic respiratory failure, diastolic dysfunction. Lifelong smoker, up to 2 packs per day, now intermittent smoking. Chronic o2 therapy, now on 3LNC. Currently on albuterol. Chronic back pain, takes Tylenol with codeine and has had issues with narcosis. No n/v/d/c. No CP. On lasix for leg edema. Feels better after administration of steroids and lasix. Feels that she is returning to her respiratory baseline. No n/v/d/c. No fevers, no chills. Allergies/Medications Allergies: Coded Allergies: SHANI Inhibitors (Severe, ANGIODEMA 05/17/16) Penicillins (Severe, ANGIODEMA 05/17/16) shellfish derived (UNKNOWN PER PT EATS SHRIMP FINE 05/17/16) aspirin (BODY BREAKS OUT IN SWEATS, GI UPSET 05/17/16) Home Med List: Albuterol Sulfate (Proair Hfa) 90 MCG HFA.AER.AD 2 PUF INH PRN RESPIRATORY ( Reported) Albuterol Sulfate 2.5 MG/3 ML VIAL.NEB 1 Vial INH/SHIRA Q4P PRN wheezing/ shortness of breath Atorvastatin Calcium (Lipitor) 40 MG TABLET 1 TAB PO QPM CHOLESTEROL ( Reported) Calcium Citrate/Vitamin D3 (Citracal + D Maximum Caplet) 1 EACH TABLET 1 TAB PO DAILY SUPPLEMENT (Reported) Carvedilol (Coreg) 25 MG TABLET 1 TAB PO BID HEART (Reported) Clonazepam (Klonopin) 1 MG TABLET 1 TAB PO QAM PRN ANXIETY (Reported) Duloxetine HCl (Cymbalta) 60 MG CAPSULE. 1 CAP PO DAILY MENTAL HEALTH ( Reported) Fluticasone Propionate (Flovent Hfa) 12 GM AER.W.ADAP 2 PUF INH BID PRN BREATHING PROBLEMS (Reported) Fluticasone/Vilanterol (Breo Ellipta 100-25 Mcg INH) 100 MCG-25 MCG/DOSE BLST.W.DEV 1 PUFF INH DAILY RESPIRATORY (Reported) Furosemide (Lasix) 40 MG TABLET 1 TAB PO DAILY HEART FAILURE Reason to Stop at ADM: change to IV Gabapentin 100 MG CAPSULE 1 CAP PO TID UNKNOWN (Reported) Metoprolol Tartrate 50 MG TABLET 1 TAB PO BID HEART/BP (Reported) Mometasone Furoate (Nasonex) 17 GM SPRAY.PUMP 1 SPRAY NASB DAILY PRN ALLERGIES (Reported) Omeprazole 40 MG CAPSULE.DR 1 CAP PO DAILY GI (Reported) Phenytoin (Dilantin) 100 MG CAPSULE 2 CAP PO BID SEIZURES (Reported) Tiotropium Alvin (Spiriva) 18 MCG CAP.W.DEV 1 CAP INH DAILY BREATHING PROBLEMS (Reported) Tylenol With Codeine (Tylenol With Codeine #3 Tablet) 1 EACH TABLET 1 TAB PO TID PRN PAIN (Reported) Valsartan (Diovan) 40 MG TABLET 1 TAB PO BID HEART Current Medications: Current Medications Sig/Robyn Start time Last Medication Dose Route Stop Time Status Admin Acetaminophen 0 .STK-MED ONE 05/20 0005 DC IV Acetaminophen 1,000 MG ONCE ONE 05/19 2344 DC 05/20 N/A 1 UNIT IV 05/19 2358 0019 Albuterol Sulfate 2 PUF Q4-6 PRN PRN 05/20 1000 AC INH Albuterol Sulfate 3 ML ONCE ONE 05/195 DC 05/19 INH 05/19 2316 2319 Atorvastatin Calcium 40 MG QPM 05/20 2200 AC PO Azithromycin 250 MG DAILY 05/20 1000 AC PO Azithromycin 500 MG ONCE ONE 05/195 DC 05/20 Dextrose/Water 250 ML IV 05/20 0044 0050 Carvedilol 25 MG BID 05/20 1000 AC 05/20 PO 0926 Clonazepam 1 MG QAM PRN 05/20 0245 AC PO 05/27 0244 Duloxetine HCl 60 MG DAILY 05/20 1000 AC 05/20 PO 0926 Fluticasone 2 PUF BID 05/20 1000 AC 05/20 Propionate INH 0928 Fluticasone 2 PUF BID PRN 05/20 0245 CAN Propionate INH Furosemide 40 MG DAILY 05/20 1000 AC 05/20 PO 0926 Furosemide 0 .STK-MED ONE 05/20 0144 DC IV Furosemide 40 MG ONCE ONE 05/20 0130 DC 05/20 IV 05/20 0131 0151 Heparin Sodium 5,000 UNIT Q8 05/20 0600 AC 05/20 (Porcine) SC 0600 Ipratropium Alvin 2.5 ML ONCE ONE 05/19 2315 DC 05/19 INH 05/19 2315 2319 Losartan Potassium 50 MG DAILY 05/20 1000 CAN PO Methylprednisolone 0 .STK-MED ONE 05/20 0005 DC .ROUTE Methylprednisolone 60 MG ONCE ONE 05/19 2345 DC 05/20 IV 05/19 2346 0019 Metoprolol Tartrate 50 MG BID 05/20 1000 AC 05/20 PO 0926 Naloxone HCl 0 .STK-MED ONE 05/20 0144 DC .ROUTE Naloxone HCl 0.2 MG ONCE ONE 05/20 0130 DC 05/20 IV 05/20 0131 0151 Nifedipine 90 MG .[DAILKY] 05/20 0245 DC PO Nitroglycerin 0 .STK-MED ONE 05/19 2316 DC SL Nitroglycerin 0.4 MG ONCE ONE 05/19 2315 DC 05/19 SL 05/19 2315 2329 Omeprazole 40 MG DAILY AC 05/20 0700 AC PO Phenytoin 200 MG BID 05/20 1000 AC 05/20 PO 0926 Prednisone 10 MG DAILY 05/23 1000 AC PO 05/23 1001 Prednisone 20 MG DAILY 05/22 1000 AC PO 05/22 1001 Prednisone 30 MG DAILY 05/21 1000 AC PO 05/21 1001 Prednisone 40 MG ONCE ONE 05/20 1000 CAN PO 05/20 1001 Prednisone 40 MG DAILY 05/20 1000 DC 05/20 PO 05/20 1001 0926 Sodium Chloride 2 SPRAY Q4P PRN 05/20 0245 AC ROBERT Tiotropium Alvin 1 PUF DAILY 05/20 1000 AC 05/20 INH 09 Review of Systems Comments 18 point Review of Systems performed. Positive and negative pertinent findings are deliniated in the HPI. Otherwise the ROS is negative. 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 FATHER (CVA). Psychosocial History Where Do You Live? Home Who Do You Live With? sister Services at Home: Oxygen Primary Language: Khmer Smoking Status: Current Everyday Smoker ETOH Use: denies use Illicit Drug Use: denies illicit drug use Functional Ability ADLs Independent: dressing, eating, toileting, bathing. Ambulation: walker IADLs Needs Assist: shopping, housework, finances, food prep, telephone, transportation, medication admin. Exam & Diagnostic Data Last 24 Hrs of Vital Signs/I&O Vital Signs Date Time Temp Pulse Resp B/P Pulse O2 O2 Flow FiO2 Ox Delivery Rate 05/20 09 162/78 05/20 0926 162/78 05/20 0845 98.2 66 18 162/78 91 Nasal 2.5L Cannula 05/20 0800 93 Nasal 3.0L Cannula 05/20 0235 98.4 73 16 160/98 92 Nasal 3.0L Cannula 05/20 0230 Nasal 3.0L Cannula 05/20 0153 97.8 78 20 122/80 94 Nasal 3.0L Cannula 05/19 2338 77 22 149/80 93 Nasal 3.0L Cannula 05/19 2315 Nasal Cannula 05/19 2308 97.3 84 22 166/94 94 Nasal 3.0L Cannula Intake & Output 05/20 1600 05/20 0800 05/20 0000 Intake Total 0 Output Total 1800 Balance -1800 0 Intake, Oral 0 Output, Urine 1800 Patient 183 lb 180 lb Weight Physical Exam Other Physical Findings: General - Alert, awake and oriented HEENT - normocephalic, atraumatic Cardiovascular - S1, S2, +murmur Lungs - prolonged end expiratory phase Abdomen - soft, bowel sounds positive, no tenderness Extremities - without edema or cyanosis Last 48 Hrs of Labs/Marcin: Laboratory Tests 05/20/16 0610: Estimated GFR 41 L, Troponin I 0.02, Amylase 72, Lipase 148, Phenytoin 11.3 05/20/16 0145: Urine Opiates Screen < 100.00, Methadone Screen < 40, Barbiturate Screen 91, Ur Phencyclidine Scrn < 6.00, Amphetamines Screen < 100, U Benzodiazepines Scrn < 85, Urine Cocaine Screen < 50, Urine Cannabis Screen 76.20 H, Urinalysis LIGHT H, Urine Color YEL, Urine Clarity CLEAR, Urine pH 6.0, Ur Specific [place] 1.020 , Urine Protein >=300 H, Urine Ketones NEG, Urine Nitrite NEG, Urine Bilirubin NEG, Urine Urobilinogen 0.2, Ur Leukocyte Esterase NEG, Ur Microscopic SEDIMENT EXAMINED, Urine WBC 1-3 H, Ur Epithelial Cells MOD H, Urine Hemoglobin TRACE- INTACT, Urine Glucose NEG 05/19/162303: D-Dimer 242 H 05/19/162303: Anion Gap 7, Estimated GFR 38 L, BUN/Creatinine Ratio 15.7, Glucose 95, Calcium 8.2 L, Total Bilirubin 0.3, AST 30, ALT 35, Alkaline Phosphatase 113, Troponin I 0.03, Szq-[id number]-Devklkxytqz Pept 1820 H, Total Protein 6.7, Albumin 3.2 L, Globulin 3.5, Albumin/Globulin Ratio 0.9 L, Amylase 88, Lipase 239, PT 10.7, INR 1.02, APTT 31, CBC w Diff NO MAN DIFF REQ, RBC 4.65, MCV 78.6 L, MCH 25.9 L, RDW 16.9 H, MPV 7.6, Gran % 59.4, Lymphocytes % 27.7, Monocytes % 10.9 H, Eosinophils % 2.0, Basophils % 0 L, Absolute Granulocytes 3.9, Absolute Lymphocytes 1.8, Absolute Monocytes 0.7 H, Absolute Eosinophils 0.1, Absolute Basophils 0, PUBS MCHC 33.0 Microbiology 05/20 0150 NASOPHARYN: Influenza Virus A & B Rapid Smear - COMP Assessment/Plan Impression/Plan: Impression CHF/Diastolic dysfunction COPD appears to be returning to baseline Plan -prednisone taper as ordered -dc flovent -dc spiriva -can bring BREO from home or can use symbicort here which I would not prefer to avoid confusion for the patient -continue 02 supplementation -lasix/ins/outs -dc zithromax -continue TRC/Albuterol DVT prophylaxis Consult Acknowledgment - Thank you for your consult request.
--- NOTE | 2016-05-20 10:49 | PN- Att Addend ---
Attending Addendum Attending Brief Note Patient similarly examined. Seasonal comfortably not in any distress. Denies chest pain. Denies shortness of breath. Denies palpitations. Overnight on telemetry she had some PACs. T waves in lateral leads was inverted but are now currently upright. Vital Signs Date Time Temp Pulse Resp B/P Pulse O2 O2 Flow FiO2 Ox Delivery Rate 05/20 09 162/78 05/20 0926 162/78 05/20 0845 98.2 66 18 162/78 91 Nasal 2.5L Cannula 05/20 0800 93 Nasal 3.0L Cannula 05/20 0235 98.4 73 16 160/98 92 Nasal 3.0L Cannula 05/20 0230 Nasal 3.0L Cannula 05/20 0153 97.8 78 20 122/80 94 Nasal 3.0L Cannula 05/19 2338 77 22 149/80 93 Nasal 3.0L Cannula 05/19 2315 Nasal Cannula 05/19 2308 97.3 84 22 166/94 94 Nasal 3.0L Cannula Gen. appearance: Obese, not in any distress Heart: S1-S2 regular Lungs: Adequate entry bilaterally with no added sounds Abdomen: Soft, nontender with normal bowel sounds Extremities: No pedal edema Skin: Intact with no rashes Laboratory Tests 05/20/16 0610: Estimated GFR 41 L, Troponin I 0.02, Amylase 72, Lipase 148, Phenytoin 11.3 05/20/16 0145: Urine Opiates Screen < 100.00, Methadone Screen < 40, Barbiturate Screen 91, Ur Phencyclidine Scrn < 6.00, Amphetamines Screen < 100, U Benzodiazepines Scrn < 85, Urine Cocaine Screen < 50, Urine Cannabis Screen 76.20 H, Urinalysis LIGHT H, Urine Color YEL, Urine Clarity CLEAR, Urine pH 6.0, Ur Specific [place] 1.020 , Urine Protein >=300 H, Urine Ketones NEG, Urine Nitrite NEG, Urine Bilirubin NEG, Urine Urobilinogen 0.2, Ur Leukocyte Esterase NEG, Ur Microscopic SEDIMENT EXAMINED, Urine WBC 1-3 H, Ur Epithelial Cells MOD H, Urine Hemoglobin TRACE- INTACT, Urine Glucose NEG 05/19/16 2304: D-Dimer 242 H 05/19/164: Anion Gap 7, Estimated GFR 38 L, BUN/Creatinine Ratio 15.7, Glucose 95, Calcium 8.2 L, Total Bilirubin 0.3, AST 30, ALT 35, Alkaline Phosphatase 113, Troponin I 0.03, Ojq-G-Sywjljpcvya Pept 1820 H, Total Protein 6.7, Albumin 3.2 L, Globulin 3.5, Albumin/Globulin Ratio 0.9 L, Amylase 88, Lipase 239, PT 10.7, INR 1.02, APTT 31, CBC w Diff NO MAN DIFF REQ, RBC 4.65, MCV 78.6 L, MCH 25.9 L, RDW 16.9 H, MPV 7.6, Gran % 59.4, Lymphocytes % 27.7, Monocytes % 10.9 H, Eosinophils % 2.0, Basophils % 0 L, Absolute Granulocytes 3.9, Absolute Lymphocytes 1.8, Absolute Monocytes 0.7 H, Absolute Eosinophils 0.1, Absolute Basophils 0, PUBS MCHC 33.0 Microbiology 05/20 0150 NASOPHARYN: Influenza Virus A & B Rapid Smear - COMP 05/20 41 BLOOD: Blood Culture - RECD 05/20 39 BLOOD: Blood Culture - RECD Problems: 1. Chest pain; now resolved 2. Oxygen dependent COPD; no evidence of overt exacerbation at present. 3. Chronic diastolic dysfunction stage I Plan: -Patient is currently symptom-free. Cardiac enzymes are negative. She did have dynamic T-wave changes overnight. Recommend follow-up with cardiology service. She will likely require further ischemic workup however it is noted that she had nonobstructive coronary disease on cardiac catheterization last year prior to her valvular heart surgery. -Continue oxygen supplementation and bronchodilator therapy. There is no role for intravenous steroids at present. I would favor rapidly tapering her off prednisone therapy. -Patient does not appear overtly volume overloaded. She has been restarted on her home dose of Lasix. Continue this regimen: Repeat serum chemistry tomorrow. -Mobilize patient as tolerated. -Repeat EKG this morning.
[2016-05-20 16:06] VITALS: BP 142/88
[2016-05-20 23:10] VITALS: BP 130/86
[2016-05-21 08:15] VITALS: BP 136/100
--- NOTE | 2016-05-21 09:28 | PN- Housestaff ---
NAZIA LAZAR 05/21/16 0928: Subjective Follow-up For: Chest pressure: Resolved Shortness of breath Tele-Events Since Last Visit: sinus rhythm with ventricular ectopies. Subjective: Patient seen and examined. Reports shortness of breath however improved. Denies chest pain, nausea, vomiting, dizziness, lightheadedness, abdominal pain, urinary symptoms. Has remained afebrile with stable vital signs. Adequate saturation on 2 L nasal cannula oxygen. Review of Systems Constitutional: Denies: see HPI. Objective Last 24 Hrs of Vital Signs/I&O Vital Signs Date Time Temp Pulse Resp B/P Pulse O2 O2 Flow FiO2 Ox Delivery Rate 05/21 0815 97.9 67 20 136/100 96 Nasal 3.0L Cannula 05/21 0813 150/78 05/21 0813 150/78 05/21 0800 97 Nasal 3.0L Cannula 05/21 0000 Nasal 3.0L Cannula 05/20 2310 98.2 64 12 130/86 94 Nasal 3.0L Cannula 05/20 212 75 182/100 05/20 2124 75 182/10 05/20 1606 98.2 77 18 142/88 97 Nasal 3.0L Cannula 05/20 1600 94 Nasal 3.0L Cannula Intake & Output 05/21 1600 05/21 0800 05/21 0000 Intake Total 130 420 Output Total 275 650 Balance -145 -230 Intake, IV 10 20 Intake, Oral 120 400 Number 0 Bowel Movements Output, Urine 275 650 Physical Exam General Appearance: Alert, Cooperative, No Acute Distress Skin: No Rashes, No Breakdown, No Significant Lesion HEENT: Atraumatic, PERRLA, EOMI, Mucous Membr. moist/pink Neck: Supple, No JVD, No thryomegaly, +2 Carotid Pulse wo Bruit, No LAD Lymphatic: Axillary nl, Cervical nl Cardiovascular: Regular Rate, Normal S1, Normal S2, No Murmurs, Gallops, Rubs Lungs: expiratory wheezes Abdomen: Normal Bowel Sounds, Soft, No Tenderness, No Hepatospenomegaly, No Masses Neurological: Normal Speech Extremities: No Clubbing, No Cyanosis, No Edema, Normal Pulses, No Tenderness/ Swelling Vascular: Pulses Symmetrical Current Medications: Current Medications Sig/Robyn Start time Last Medication Dose Route Stop Time Status Admin Albuterol Sulfate 2 PUF Q4-6 PRN PRN 05/20 1000 AC INH Atorvastatin Calcium 40 MG QPM 05/20 2200 AC 05/20 PO 2122 Carvedilol 25 MG BID 05/20 1000 AC 05/21 PO 0813 Clonazepam 1 MG QAM PRN 05/20 0245 AC PO 05/27 0244 Duloxetine HCl 60 MG DAILY 05/20 1000 AC 05/21 PO 0813 Furosemide 40 MG DAILY 05/20 1000 AC 05/21 PO 0813 Heparin Sodium 5,000 UNIT Q8 05/20 0600 AC 05/21 (Porcine) SC 1336 Metoprolol Tartrate 50 MG BID 05/20 1000 AC 05/21 PO 0813 Nicotine 14 MG DAILY 05/20 2132 AC 05/21 TOP 0813 Omeprazole 40 MG DAILY AC 05/20 0700 AC 05/21 PO 0635 Phenytoin 200 MG BID 05/20 1000 AC 05/21 PO 0813 Prednisone 10 MG DAILY 05/23 1000 AC PO 05/23 1001 Prednisone 20 MG DAILY 05/22 1000 AC PO 05/22 1001 Prednisone 30 MG DAILY 05/21 1000 DC 05/21 PO 05/21 1001 0813 Sodium Chloride 2 SPRAY Q4P PRN 05/20 0245 AC ROBERT Assessment/Plan Assessment: This is a 66-year-old female with past medical history significant for hypertension, hyperlipidemia, diastolic CHF, COPD on 3 L O2, aortic valve replacement, and recent echo showing moderate to severe pulmonary hypertension who presented with dyspnea and chest pressure. EKG: Heart rate 65, QTC 434, in normal sinus rhythm. Patient has known ST, T- wave changes, in addition to right bundle branch block and evidence of LVH present in old and new EKG. Chest x-ray: Showed clear lungs with no evidence of fluid overload/effusion. There was some noted cardiomegaly. Problem list/plan: #Chest pressure: * Patient is asymptomatic and chest pressure has resolved * Continue quality assurance monitor * Troponins negative so far; EKG shows T-wave inversion in lateral leads, unchanged from EKG on admission however no prior EKG available for comparison. * Follow up cardiology recommendations * Continue with beta blockers for now #Dyspnea: * Likely COPD exacerbation vs Chronic CHF * TRC/Nebs * U tox positive for cannabis, negative for cocaine, benzo, opiates * Follow sputum culture * Continue oxygen supplementation * I's and O's * Continue with Prednisone taper, Mucinex * Smoke cessation counseling * Hold opiates #ELIEL: Creatinine improved from 1.4 on admission to 1.3 (baseline 0.9 on October 2015). * Avoid nephrotoxins * Encourage by mouth fluid intake #DVT prophylaxis: * Subcutaneous heparin #Full code. Problem List: 1. Respiratory failure 2. COPD (chronic obstructive pulmonary disease) Pain Ratin Pain Location: NA Pain Goal: Remain pain free Pain Plan: When necessary Tomorrow's Labs & Rationales: BEP to monitor electrolytes and creatinine. Consulting Request: Consulting Specialty: Cardiology SNEHAL SEGURA MD 05/21/16 1317: Attending MD Review Statement Attending Statement Attending MD Statement: examined this patient, discuss w/resident/PA/TRADING SPECIALIST, agreed w/resident/PA/TRADING SPECIALIST, reviewed EMR data (avail), discussed with nursing, amended to note Attending Assessment/Plan: Patient seen and examined. Sitting on the bed and not in acute distress. Overnight on telemetry she had a 5 beat run of ventricular ectopy. She remains in normal sinus rhythm. She continues have T-wave inversions on her EKG. Is afebrile and hemodynamically stable. She denies chest pain. She complains of shortness of breath with exertion but states that this is chronic for her. Complains of numbness in her lower extremities. On examination she is not in acute distress. She has adequate entry bilaterally with no added sounds and prolonged expiratory phase. Problems: 1. Chest pain; now resolved 2. Oxygen dependent COPD; no evidence of overt exacerbation at present. 3. Chronic diastolic dysfunction stage I Recommendations: -EKG continues to show T-wave inversions in lateral leads. No previous EKGs for comparison present. She is currently asymptomatic. -Follow recommendations of the cardiology service. -Mobilize patient as tolerated. -Repeat serum electrolytes including potassium and magnesium. -Continue beta audrey therapy for now. -Anticipate discharge in 24 hours if no further workup or intervention recommended by the cardiology service.
--- NOTE | 2016-05-21 12:03 | PN- Pulmonary ---
Subjective HPI/Critical Care Issues: pt seen and examined sitting upright appears returning to respiratory baseline some le numbness otherwise feeling better Objective Current Medications: Current Medications Sig/Robyn Start time Last Medication Dose Route Stop Time Status Admin Albuterol Sulfate 2 PUF Q4-6 PRN PRN 05/20 1000 AC INH Atorvastatin Calcium 40 MG QPM 05/20 2200 AC 05/20 PO 2122 Carvedilol 25 MG BID 05/20 1000 AC 05/21 PO 0813 Clonazepam 1 MG QAM PRN 05/20 0245 AC PO 05/27 0244 Duloxetine HCl 60 MG DAILY 05/20 1000 AC 05/21 PO 0813 Furosemide 40 MG DAILY 05/20 1000 AC 05/21 PO 0813 Heparin Sodium 5,000 UNIT Q8 05/20 0600 AC 05/21 (Porcine) SC 0635 Metoprolol Tartrate 50 MG BID 05/20 1000 AC 05/21 PO 0813 Nicotine 14 MG DAILY 05/20 2132 AC 05/21 TOP 0813 Omeprazole 40 MG DAILY AC 05/20 0700 AC 05/21 PO 0635 Phenytoin 200 MG BID 05/20 1000 AC 05/21 PO 0813 Prednisone 10 MG DAILY 05/23 1000 AC PO 05/23 1001 Prednisone 20 MG DAILY 05/22 1000 AC PO 05/22 1001 Prednisone 30 MG DAILY 05/21 1000 DC 05/21 PO 05/21 1001 0813 Sodium Chloride 2 SPRAY Q4P PRN 05/20 0245 AC ROBERT Vital Signs & I&O Last 24 Hrs of Vitals and I&O: Vital Signs Date Time Temp Pulse Resp B/P Pulse O2 O2 Flow FiO2 Ox Delivery Rate 05/21 0815 97.9 67 20 136/100 96 Nasal 3.0L Cannula 05/21 0813 150/78 05/21 0813 150/78 05/21 08 97 Nasal 3.0L Cannula 05/21 0000 Nasal 3.0L Cannula 05/20 2310 98.2 64 12 130/86 94 Nasal 3.0L Cannula 05/20 2123 75 182/100 05/20 2123 75 182/10 05/20 1606 98.2 77 18 142/88 97 Nasal 3.0L Cannula 05/20 1600 94 Nasal 3.0L Cannula Intake & Output 05/21 1600 05/21 0800 05/21 0000 Intake Total 130 420 Output Total 275 650 Balance -145 -230 Intake, IV 10 20 Intake, Oral 120 400 Number 0 Bowel Movements Output, Urine 275 650 Exam Other Physical Findings: General - Alert, awake and oriented HEENT - normocephalic, atraumatic Cardiovascular - S1, S2, +murmur Lungs - prolonged end expiratory phase Abdomen - soft, bowel sounds positive, no tenderness Extremities - without edema or cyanosis Impression/Plan Impression/Plan Impression/Plan: Impression CHF/Diastolic dysfunction COPD appears to be returning to baseline Plan -prednisone taper as ordered -can bring BREO from home or can use symbicort here which I would not prefer to avoid confusion for the patient -continue 02 supplementation -lasix/ins/outs -continue TRC/Albuterol -off abx -smoking cessation counseling DVT prophylaxis
[2016-05-21 17:09] VITALS: BP 128/80
[2016-05-22 00:46] VITALS: BP 170/100
[2016-05-22 08:31] VITALS: BP 162/84
[2016-05-22 08:47] VITALS: BP 154/80
--- NOTE | 2016-05-22 10:09 | PN- Housestaff ---
JAMEL AVERY 05/22/16 1009: Subjective Follow-up For: Shortness of breath Chest pressure: Resolved Tele-Events Since Last Visit: Normal sinus rhythm, PACs, inverted T waves Subjective: Seen and examined patient, complains of back pain which is chronic for her and is controlled with Tylenol. States that she feels off balance when she does walk currently using a cane at home. Denies chest pain, shortness of breath. Patient is very eager to go home today and has a called her son to take her home. Review of Systems Constitutional: Denies: chills, diaphoresis, fever, malaise, weakness, unexplained weight loss. Cardiovascular: Denies: chest pain, edema, orthopena, palpitations, peripheral edema, syncope. Respiratory: Denies: cough, hemoptysis, orthopnea, short of breath, sputum production, stridor, wheezing. Objective Last 24 Hrs of Vital Signs/I&O Vital Signs Date Time Temp Pulse Resp B/P Pulse O2 O2 Flow FiO2 Ox Delivery Rate 05/22 0847 154/80 05/22 0847 154/80 05/22 0831 98.0 68 20 162/84 98 Nasal 3.0L Cannula 05/22 0800 95 Nasal 3.0L Cannula 05/22 0046 98.3 66 20 170/100 95 Nasal 3.0L Cannula 05/22 0000 Nasal 3.0L Cannula 05/21 2146 69 158/80 05/21 2146 75 158/80 05/21 1709 98.2 65 20 128/80 93 Nasal 3.0L Cannula 05/21 1600 95 Nasal 3.0L Cannula Intake & Output 05/22 1600 05/22 0800 05/22 0000 Intake Total 796 69 9885 Output Total 475 650 Balance 125 50 450 Intake, Oral 535 87 4222 Number 0 Bowel Movements Output, Urine 475 650 Physical Exam General Appearance: Alert, Oriented X3, Cooperative, No Acute Distress Cardiovascular: Regular Rate, Normal S1, Normal S2 Lungs: Clear to Auscultation, Normal Air Movement Abdomen: Normal Bowel Sounds, Soft, No Tenderness Extremities: No Edema Current Medications: Current Medications Sig/Robyn Start time Last Medication Dose Route Stop Time Status Admin Albuterol Sulfate 2 PUF Q4-6 PRN PRN 05/20 1000 AC INH Atorvastatin Calcium 40 MG QPM 05/20 2200 AC 05/21 PO 2144 Carvedilol 25 MG BID 05/20 1000 AC 05/22 PO 0847 Clonazepam 1 MG QAM PRN 05/20 0245 AC PO 05/27 0244 Duloxetine HCl 60 MG DAILY 05/20 1000 AC 05/22 PO 0847 Furosemide 40 MG DAILY 05/20 1000 AC 05/22 PO 0847 Gabapentin 100 MG Q8 05/22 0915 AC 05/22 PO 1040 Heparin Sodium 5,000 UNIT Q8 05/20 0600 AC 05/22 (Porcine) SC 0518 Metoprolol Tartrate 50 MG BID 05/20 1000 AC 05/22 PO 0847 Nicotine 14 MG DAILY 05/20 2132 AC 05/22 TOP 0846 Omeprazole 40 MG DAILY AC 05/20 0700 AC 05/22 PO 0518 Phenytoin 200 MG BID 05/20 1000 AC 05/22 PO 0847 Prednisone 10 MG DAILY 05/23 1000 AC PO 05/23 1001 Prednisone 20 MG DAILY 05/22 1000 DC 05/22 PO 05/22 1001 0847 Sodium Chloride 2 SPRAY Q4P PRN 05/20 0245 AC 05/21 ROBERT 2149 Last 24 Hrs of Lab/Marcin Results Last 24 Hrs of Labs/Mics: Laboratory Tests 05/22/16 0620: Anion Gap 3 L, Estimated GFR 41 L, BUN/Creatinine Ratio 19.2, Magnesium 1.9 Assessment/Plan Assessment: 66-year-old woman with past medical history significant for hypertension, hyperlipidemia, diastolic CHF, COPD on 3 L O2, aortic valve replacement, and recent echo showing moderate to severe pulmonary hypertension who presented with dyspnea and chest pressure. Clinical improvement currently saturating at baseline oxygen requirement. Chest Pain free. EKG: Heart rate 65, QTC 434, in normal sinus rhythm. Patient has known ST, T- wave changes, in addition to right bundle branch block and evidence of LVH present in old and new EKG. Chest x-ray: Showed clear lungs with no evidence of fluid overload/effusion. There was some noted cardiomegaly. Problem list/plan: #Chest pressure: * Patient is asymptomatic and chest pressure has resolved * Troponins negative so far; EKG shows T-wave inversion in lateral leads, unchanged from EKG on admission however no prior EKG available for comparison. No overnight events recorded on telemetry * stabel for discharge per cardiology from cardiac standpoint. * Continue with beta blockers for now #Dyspnea: * Likely COPD exacerbation vs Chronic CHF * TRC/Nebs * U tox positive for cannabis, negative for cocaine, benzo, opiates * Continue oxygen supplementation, * Will need by mouth prednisone for 1 more day * Mucinex * Smoke cessation counselled * Hold opiates #ELIEL: Creatinine improved to1.3 (baseline 0.9 on October 2015). * Advised to follow-up with primary care physician as this might be her new baseline * Avoid nephrotoxins * Encourage by mouth fluid intake #DVT prophylaxis: * Subcutaneous heparin #Full code. #Patient was walked by nurse and myself, she was more unstable with cane but this improved with a walker. Patient will be discharged with walker and home health services. Problem List: 1. CHF (congestive heart failure) 2. COPD (chronic obstructive pulmonary disease) Pain Ratin Pain Location: back pain Pain Goal: Pain 4 or less Pain Plan: current regimen Tomorrow's Labs & Rationales: none required Consulting Request: Consulting Specialty: Cardiology SULMA VALDOVINOS,LAURY 05/22/16 1102: Attending MD Review Statement Attending Statement Attending MD Statement: examined this patient, discuss w/resident/PA/DISTRICT PLANT ENGINEER, agreed w/resident/PA/DISTRICT PLANT ENGINEER, reviewed EMR data (avail), discussed with nursing, discussed with case mgmt Attending Assessment/Plan: Patient seen and examined. Plan of care discussed with the medical team and the patient. Available lab work and radiology test reports were reviewed. Patient feels well and denies any difficulty breathing fever chills. She only has occasional cough. No recent fever has been noted. Patient currently has stable vital signs except for slightly elevated systolic pressure 154. She remains on 3 L oxygen with 98% saturation. Chest exam shows few scattered basal crepitations. No restricted distress is noted. Abdomen soft nontender. Patient currently awake alert and oriented. Chemistry labs show creatinine 1.3. Assessment plan * Chest pressure and EKG changes with deep T-wave inversions in lateral chest leads- reviewed older EKGs from last year and these changes were present. Her troponins have been negative. Await cardiology input * COPD with mild exacerbation- currently stable; continue prednisone taper and other home medications * Hypoxemia- continue oxygen * Instability of gait- patient walks with a walker and cane at home. Please have physical therapy assessment done. If patient is able to ambulate she can be discharged home today. She may qualify for home physical therapy.
--- NOTE | 2016-05-22 10:31 | PN- Pulmonary ---
Subjective HPI/Critical Care Issues: pt seen and examined afebrile hypertensive 98% on 3LNC no leg edema no n/v/d/c Objective Current Medications: Current Medications Sig/Robyn Start time Last Medication Dose Route Stop Time Status Admin Albuterol Sulfate 2 PUF Q4-6 PRN PRN 05/20 1000 AC INH Atorvastatin Calcium 40 MG QPM 05/20 2200 AC 05/21 PO 2144 Carvedilol 25 MG BID 05/20 1000 AC 05/22 PO 0847 Clonazepam 1 MG QAM PRN 05/20 0245 AC PO 05/27 0244 Duloxetine HCl 60 MG DAILY 05/20 1000 AC 05/22 PO 0847 Furosemide 40 MG DAILY 05/20 1000 AC 05/22 PO 0847 Gabapentin 100 MG Q8 05/22 0915 AC PO Heparin Sodium 5,000 UNIT Q8 05/20 0600 AC 05/22 (Porcine) SC 0518 Metoprolol Tartrate 50 MG BID 05/20 1000 AC 05/22 PO 0847 Nicotine 14 MG DAILY 05/20 2132 AC 05/22 TOP 0846 Omeprazole 40 MG DAILY AC 05/20 0700 AC 05/22 PO 0518 Phenytoin 200 MG BID 05/20 1000 AC 05/22 PO 0847 Prednisone 10 MG DAILY 05/23 1000 AC PO 05/23 1001 Prednisone 20 MG DAILY 05/22 1000 DC 05/22 PO 05/22 1001 0847 Sodium Chloride 2 SPRAY Q4P PRN 05/20 0245 AC 05/21 ROBERT 2149 Vital Signs & I&O Last 24 Hrs of Vitals and I&O: Vital Signs Date Time Temp Pulse Resp B/P Pulse O2 O2 Flow FiO2 Ox Delivery Rate 05/22 0847 154/80 05/22 0847 154/80 05/22 0831 98.0 68 20 162/84 98 Nasal 3.0L Cannula 05/22 0046 98.3 66 20 170/100 95 Nasal 3.0L Cannula 05/22 0000 Nasal 3.0L Cannula 05/21 2146 69 158/80 05/21 2146 75 158/80 05/21 1709 98.2 65 20 128/80 93 Nasal 3.0L Cannula 05/21 1600 95 Nasal 3.0L Cannula Intake & Output 05/22 1600 05/22 0800 05/22 0000 Intake Total 50 1100 Output Total 650 Balance 50 450 Intake, Oral 50 1100 Number 0 Bowel Movements Output, Urine 650 Exam Other Physical Findings: General - Alert, awake and oriented HEENT - normocephalic, atraumatic Cardiovascular - S1, S2, +murmur Lungs - prolonged end expiratory phase Abdomen - soft, bowel sounds positive, no tenderness Extremities - without edema or cyanosis Results Last 24 Hrs of Lab Results: Laboratory Tests 05/22/16 0620: Anion Gap 3 L, Estimated GFR 41 L, BUN/Creatinine Ratio 19.2, Magnesium 1.9 Impression/Plan Impression/Plan Impression/Plan: Impression CHF/Diastolic dysfunction COPD appears to be returning to baseline Plan -prednisone taper as ordered -can use home BREO -continue 02 supplementation -lasix/ins/outs -continue TRC/Albuterol -off abx -smoking cessation counseling DVT prophylaxis
--- NOTE | 2016-05-22 13:06 | Cons- Cardiology ---
General Information and HPI Consulting Request Date of Consult: 05/22/16 Requested By: CHILO VALDOVINOS,JOVANNA Reason for Consult: Chest pain, shortness of breath, edema Source of Information: patient, old records Exam Limitations: no limitations History of Present Illness: Ms. Vickers is a 66-year-old female who was hospitalized originally in June 2015 twice with congestive heart failure and valvular disease. She was eventually transferred to [facility] where she was found to have severe rheumatic type aortic stenosis and had an aortic valve replacement in July 2015 with a 21 mm Magna prosthesis. She was found to have no evidence of coronary artery disease on cath. Subsequently she has had a couple of hospitalizations at [facility]. In September 2015 she was admitted for exacerbation of COPD and right sided congestive heart failure. The followup echo showed a moderate gradient across her prosthesis and significant pulmonary artery hypertension, although improved over her original pulmonary artery pressure. On October she was admitted for inadvertent opioid overdose with respiratory failure. Subsequently I have seen her in the office since that hospitalization and she has been doing better. There were problems with her oxygen supply which have been straightened out and her medications, which are now poured by the visiting nurse. I last saw her in early March 2016, at which time she was doing pretty well. I sent her for another echocardiogram at that time which was done earlier this month and showed normal left ventricular systolic function with marked LVH, mild to moderate mitral regurgitation, bioprosthetic aortic valve which shows mild to moderate stenosis. Pulmonary artery pressure was 70 mmHg. She was doing well until a couple of days ago when she was admitted for heaviness in the chest, shortness of breath, and edema. She was treated with respiratory treatments, steroids, diuretics and is now feeling improved. Her main complaint at this time is unsteadiness and numbness of her hands and feet. Her cardiac workup was negative by enzymes. Her EKG is chronically abnormal with marked LVH and ST-T wave abnormalities and I don't see any significant changes in her EKGs. She is now feeling better from a respiratory standpoint and her edema has resolved. Allergies/Medications Allergies: Coded Allergies: SHANI Inhibitors (Severe, ANGIODEMA 05/17/16) Penicillins (Severe, ANGIODEMA 05/17/16) shellfish derived (UNKNOWN PER PT EATS SHRIMP FINE 05/17/16) aspirin (BODY BREAKS OUT IN SWEATS, GI UPSET 05/17/16) Home Med List: Albuterol Sulfate (Proair Hfa) 90 MCG HFA.AER.AD 2 PUF INH PRN RESPIRATORY ( Reported) Albuterol Sulfate 2.5 MG/3 ML VIAL.NEB 1 Vial INH/SHIRA Q4P PRN wheezing/ shortness of breath Atorvastatin Calcium (Lipitor) 40 MG TABLET 1 TAB PO QPM CHOLESTEROL ( Reported) Calcium Citrate/Vitamin D3 (Citracal + D Maximum Caplet) 1 EACH TABLET 1 TAB PO DAILY SUPPLEMENT (Reported) Carvedilol (Coreg) 25 MG TABLET 1 TAB PO BID HEART (Reported) Clonazepam (Klonopin) 1 MG TABLET 1 TAB PO QAM PRN ANXIETY (Reported) Duloxetine HCl (Cymbalta) 60 MG CAPSULE.DR 1 CAP PO DAILY MENTAL HEALTH ( Reported) Fluticasone/Vilanterol (Breo Ellipta 100-25 Mcg INH) 100 MCG-25 MCG/DOSE BLST.W.DEV 1 PUFF INH DAILY RESPIRATORY (Reported) Furosemide (Lasix) 40 MG TABLET 1 TAB PO DAILY HEART FAILURE Reason to Stop at ADM: change to IV Gabapentin 100 MG CAPSULE 1 CAP PO TID nerve pain (Reported) Metoprolol Tartrate 50 MG TABLET 1 TAB PO BID HEART/BP (Reported) Mometasone Furoate (Nasonex) 17 GM SPRAY.PUMP 1 SPRAY NASB DAILY PRN ALLERGIES (Reported) Omeprazole 40 MG CAPSULE. 1 CAP PO DAILY GI (Reported) Phenytoin (Dilantin) 100 MG CAPSULE 2 CAP PO BID SEIZURES (Reported) Prednisone 10 MG TABLET 10 MG PO DAILY COPD Please take 1 tablet on 05/23/16 Tiotropium [place] (Spiriva) 18 MCG CAP.W.DEV 1 CAP INH DAILY BREATHING PROBLEMS (Reported) Tylenol With Codeine (Tylenol With Codeine #3 Tablet) 1 EACH TABLET 1 TAB PO TID PRN PAIN (Reported) Valsartan (Diovan) 40 MG TABLET 1 TAB PO BID HEART Current Medications: Current Medications Sig/Robyn Start time Last Medication Dose Route Stop Time Status Admin Albuterol Sulfate 2 PUF Q4-6 PRN PRN 05/20 1000 AC INH Atorvastatin Calcium 40 MG QPM 05/20 2200 AC 05/21 PO 2144 Carvedilol 25 MG BID 05/20 1000 AC 05/22 PO 0847 Clonazepam 1 MG QAM PRN 05/20 0245 AC PO 05/27 0244 Duloxetine HCl 60 MG DAILY 05/20 1000 AC 05/22 PO 0847 Furosemide 40 MG DAILY 05/20 1000 AC 05/22 PO 0847 Gabapentin 100 MG Q8 05/22 0915 AC 05/22 PO 1040 Heparin Sodium 5,000 UNIT Q8 05/20 0600 AC 05/22 (Porcine) SC 0518 Metoprolol Tartrate 50 MG BID 05/20 1000 AC 05/22 PO 0847 Nicotine 14 MG DAILY 05/20 2132 AC 05/22 TOP 0846 Omeprazole 40 MG DAILY AC 05/20 0700 AC 05/22 PO 0518 Phenytoin 200 MG BID 05/20 1000 AC 05/22 PO 0847 Prednisone 10 MG DAILY 05/23 1000 AC PO 05/23 1001 Prednisone 20 MG DAILY 05/22 1000 DC 05/22 PO 05/22 1001 0847 Sodium Chloride 2 SPRAY Q4P PRN 05/20 0245 AC 05/21 ROBERT 2149 Review of Systems Review of Systems: She has complaints of numbness and unsteadiness in the review of systems. 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 FATHER (CVA). Psychosocial History Where Do You Live? Home Who Do You Live With? sister Services at Home: Oxygen Primary Language: Zambian Smoking Status: Current Everyday Smoker ETOH Use: denies use Illicit Drug Use: denies illicit drug use Functional Ability ADLs Independent: dressing, eating, toileting, bathing. Ambulation: walker IADLs Needs Assist: shopping, housework, finances, food prep, telephone, transportation, medication admin. Exam & Diagnostic Data Vital Signs and I&O Vital Signs Date Time Temp Pulse Resp B/P Pulse O2 O2 Flow FiO2 Ox Delivery Rate 05/22 0847 154/80 05/22 0847 154/80 05/22 0831 98.0 68 20 162/84 98 Nasal 3.0L Cannula 05/22 0800 95 Nasal 3.0L Cannula 05/22 0046 98.3 66 20 170/100 95 Nasal 3.0L Cannula 05/22 0000 Nasal 3.0L Cannula 05/21 2146 69 158/80 05/21 214 75 158/80 05/21 1709 98.2 65 20 128/80 93 Nasal 3.0L Cannula 05/21 1600 95 Nasal 3.0L Cannula Intake & Output 05/22 1600 05/22 0800 05/22 0000 05/21 1600 05/21 0800 05/21 0000 Intake Total 50 1100 600 130 420 Output Total 650 475 275 650 Balance 50 450 125 -145 -230 Intake, IV 10 20 Intake, Oral 50 1100 600 120 400 Number 0 1 0 Bowel Movements Output, Urine 650 475 275 650 Physical Exam: She is an elderly appearing black female in no acute distress HEENT exam is normal Chest reveals decreased breath sounds with no rales, rhonchi or wheezing Heart reveals a regular rhythm with a grade 3/6 systolic ejection murmur at the base Abdomen is soft nontender Extremities reveal 0 to trace edema and decreased pulses Labs/Marcin Results: Laboratory Tests 05/22 0620 Chemistry Sodium (137 - 145 mmol/L) 137 Potassium (3.5 - 5.1 mmol/L) 4.4 Chloride (98 - 107 mmol/L) 99 Carbon Dioxide (22 - 30 mmol/L) 34 H Anion Gap (5 - 16) 3 L BUN (7 - 17 mg/dL) 25 H Creatinine (0.5 - 1.0 mg/dL) 1.3 H Estimated GFR (>60 ml/min) 41 L BUN/Creatinine Ratio (7 - 25 %) 19.2 Magnesium (1.6 - 2.3 mg/dL) 1.9 Diagnostic Data EKG Results She has had multiple EKGs which show sinus rhythm, LVH with secondary ST-T wave abnormalities and incomplete left bundle branch block pattern. CXR Results PATIENT: JUNIOR VICKERS PRESENT AGE: 66 PATIENT ACCOUNT NO: [id number] : 49 LOCATION: [facility] ORDERING PHYSICIAN: NANCY PLUNKETT MD SERVICE DATE: 05/19/16 EXAM TYPE: RAD - XRY-PORTABLE CHEST XRAY EXAMINATION: XR PORTABLE CHEST CLINICAL INFORMATION: Chest pain. COMPARISON: Chest x-ray 05/17/2016 TECHNIQUE: Portable AP view of the chest was obtained. 11:12 PM FINDINGS: Status post median sternotomy. Cardiomegaly. No pulmonary vascular congestion. Lungs are clear. No pleural effusion. IMPRESSION: No acute abnormality the chest. Assessment/Plan Assessment/Plan Allie came in with a little bit of fluid overload and some exacerbation of COPD. I don't think there was any clinical evidence of congestive heart failure , although her BNP was modestly elevated. There is no evidence of ischemia. She actually had normal coronary arteries on her cardiac catheterization less than one year ago. Her biggest cardiac issue is pulmonary hypertension, which is largely on the basis of her COPD. Her aortic valve was replaced with a slightly small valve which does have a gradient across it, but it is much lower than the gradient she started with prior to surgery. At this time she seems stable from a cardiac and respiratory standpoint. I think she can be discharged pending physical therapy evaluation for safety at home. She has been counseled multiple times regarding cigarette smoking and has in fact cut down but not stopped altogether. Hopefully she will in the future. Copies To: SHELLY TRUONG MD Consult Acknowledgment - Thank you for your consult request.
--- NOTE | 2016-05-22 14:18 | Patient Discharge Instructions ---
Discharge Instructions General Discharge Information You were seen/treated for: Chest pain shortness of breath Special Instructions: Please follow-up with your primary care physician within one week of discharge Please follow-up with your content development specialist within 2 weeks of discharge Diet Recommended Diet: Heart Healthy Activity Full Activity/No Limits: Yes Acute Coronary Syndrome Inclusion Criteria At DC or during hospital stay patient has or had the following: ACS DIAGNOSIS No Discharge Core Measures Meds if any: Prescribed or Continued at Discharge Meds if any: NOT Prescribed or Continued at Discharge Congestive Heart Failure Inclusion Criteria At DC or during hospital stay patient has or had the following: CHF DIAGNOSIS No Discharge Core Measures Meds if any: Prescribed or Continued at Discharge Meds if any: NOT Prescribed or Continued at Discharge Cerebrovascular accident Inclusion Criteria At DC or during hospital stay patient has or had the following: CVA/TIA Diagnosis No Discharge Core Measures Meds if any: Prescribed or Continued at Discharge Meds if any: NOT Prescribed or Continued at Discharge Venous thromboembolism Inclusion Criteria VTE Diagnosis No VTE Type NONE VTE Confirmed by (Test) NONE Discharge Core Measures - Per Current guidelines, there needs to be overlap - treatment for the first 5 days of Warfarin therapy. - If discharged on Warfarin prior to 5 days of - overlap therapy, the patient will need to be - assessed for post discharge needs including - *Post discharge parental anticoagulation - *Warfarin and/or parental anticoagulation education - *Follow up date to check INR post discharge At least 5 days overlap therapy as Inpatient No Meds if any: Prescribed or Continued at Discharge Note: Overlap Therapy is Warfarin and Anticoagulant Meds if any: NOT Prescribed or Continued at Discharge
[2016-05-22] MEDS ORDERED: PREDNISONE10 M2 PO (14:29)
--- NOTE | 2016-05-23 09:15 | Discharge Summary ---
Visit Information Visit Dates Admission Date: 05/19/16 Discharge Date: 05/22/16 Hospital Course Course Attending Physician: SULMA VALDOVINOS,LAURY Primary Care Physician: SHELLY TRUONG MD Consulting Request: Consulting Specialty: Cardiology Hospital Course: 66-year-old woman with a past medical history of HTN, T2DM, chronic diastolic CHF, COPD on 3L, chronic back pain, rheumatic aortic stenosis s/p AVR, seizures on dilantin, was admitted to [facility] for persistent chest pressure and and shortness of breath Vitals at the time of admission Blood pressure 168/80, respiration rate of 16, pulse rate of 73, temperature 98.4, oxygen flow rate of 3 L and saturation of 92 % Labs shows Normal WBC, electrolyte panel shows sodium 140, potassium 3.9, chloride 101, ProBNP of 1800 EKG showed minor T-wave inversions CXR showed No acute abnormality . Was admitted to the telemetry floor and the follow issues were addressed: Chest pressure: She remain asymptomatic and her chest pressure resolved. No events were noted on the telemonitoring. ACS was ruled by negative Troponins; serial EKGs showed T- wave inversion in lateral leads, unchanged from EKG on admission however no prior EKG available for comparison. Her home meds of Losartan, Nifedipine were continued. Dyspnea: Was thought to be multifactorial COPD exacerbation vs CHF exacerbation. Clinical improvement observed after administration of steroids and lasix. She completed a course of Azithromax. She had one day of prednsione taper left on discharge. ELIEL: Creatinine improved to 1.3 (baseline 0.9 on October 2015). Advised to follow-up with primary care physician as this might be her new baseline. Advised to avoid nephrotoxins amd encourage by mouth fluid intake. Her U tox positive for cannabis. Smoking Cessation; Lifelong smoker, up to 2 packs per day, now intermittent smoking. Smoking cessation counseled DVT prophylaxis: Subcutaneous heparin Patient was Full code. #Patient was walked by nurse and myself, she was more unstable with cane but this improved with a walker. Was discharged with walker and home health services. Complications: none Allergies: Coded Allergies: SHANI Inhibitors (Severe, ANGIODEMA 05/17/16) Penicillins (Severe, ANGIODEMA 05/17/16) shellfish derived (UNKNOWN PER PT EATS SHRIMP FINE 05/17/16) aspirin (BODY BREAKS OUT IN SWEATS, GI UPSET 05/17/16) Significant Procedures: SERVICE DATE: 05/19/16 EXAM TYPE: RAD - XRY-PORTABLE CHEST XRAY FINDINGS: Status post median sternotomy. Cardiomegaly. No pulmonary vascular congestion. Lungs are clear. No pleural effusion. IMPRESSION: No acute abnormality the chest. 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 within 2 weeks of discharge Medications at Discharge Discharge Medications: Stop taking the following medications: Fluticasone Propionate (Flovent Hfa) 12 GM AER.W.ADAP Inhale through mouth TWICE DAILY as needed for BREATHING PROBLEMS Continue taking these medications: Atorvastatin Calcium (Lipitor) 40 MG TABLET 1 Tablet ORAL Every night Comments: GIVEN 05/21/16 @ 9:45 PM Carvedilol (Coreg) 25 MG TABLET 1 Tablet ORAL TWICE DAILY Comments: GIVEN 05/22/16 @ 8:47AM Phenytoin (Dilantin) 100 MG CAPSULE 2 Capsule ORAL TWICE DAILY Comments: GIVEN 05/22/16 @ 8:47AM Tylenol With Codeine (Tylenol With Codeine #3 Tablet) 1 EACH TABLET 1 Tablet ORAL THREE TIMES DAILY as needed for PAIN Comments: Last Taken: NOT GIVEN IN HOSPITAL Time: Clonazepam (Klonopin) 1 MG TABLET 1 Tablet ORAL Every Morning as needed for ANXIETY Comments: Last Taken: NOT GIVEN IN HOSPITAL Time: Mometasone Furoate (Nasonex) 17 GM SPRAY.PUMP 1 Blaine Both sides of nose DAILY as needed for ALLERGIES Comments: Last Taken: NOT GIVEN IN HOSPITAL Time: Tiotropium [place] (Spiriva) 18 MCG CAP.W.DEV 1 Capsule Inhale through mouth DAILY Comments: GIVEN 05/20/16 @ 9:26AM Duloxetine HCl (Cymbalta) 60 MG CAPSULE.DR 1 Capsule ORAL DAILY Comments: GIVEN 05/22/16 @ 8:47AM Calcium Citrate/Vitamin D3 (Citracal + D Maximum Caplet) 1 EACH TABLET 1 Tablet ORAL DAILY Comments: Last Taken: NOT GIVEN IN HOSPITAL Time: Albuterol Sulfate (Albuterol Sulfate) 2.5 MG/3 ML VIAL.NEB 1 Vial Inhale Solution EVERY 4 HOURS NEEDED as needed for wheezing/ shortness of breath Qty = 50 Comments: GIVEN 05/19/16 @ 11:20 PM Furosemide (Lasix) 40 MG TABLET 1 Tablet ORAL DAILY Qty = 30 Instructions: Reason to Stop at ADM: change to IV Comments: GIVEN 05/22/16 @ 8:47AM Valsartan (Diovan) 40 MG TABLET 1 Tablet ORAL TWICE DAILY Days = 14 Comments: Last Taken: NOT GIVEN IN HOSPITAL Time: Fluticasone/Vilanterol (Breo Ellipta 100-25 Mcg INH) 100 MCG-25 MCG/DOSE BLST.W.DEV 1 PUFF Inhale through mouth DAILY Qty = 60 Comments: NOT GIVEN Omeprazole (Omeprazole) 40 MG CAPSULE.DR 1 Capsule ORAL DAILY Qty = 30 Comments: GIVEN 05/22/16 @ 5:18AM Gabapentin (Gabapentin) 100 MG CAPSULE 1 Capsule ORAL THREE TIMES DAILY Qty = 90 Comments: GIVEN 05/22/16 @ 10:40AM Metoprolol Tartrate (Metoprolol Tartrate) 50 MG TABLET 1 Tablet ORAL TWICE DAILY Qty = 180 Comments: GIVEN 05/22/16 @ 8:47AM Albuterol Sulfate (Proair Hfa) 90 MCG HFA.AER.AD 2 Puff Inhale through mouth as needed for RESPIRATORY Qty = 9 Comments: NOT GIVEN Start taking the following new medications: Prednisone (Prednisone) 10 MG TABLET 10 Milligram ORAL DAILY Qty = 1 No Refills Instructions: Please take 1 tablet on 05/23/16 Comments: GIVEN 05/22/16 @ 8:47 AM Copies To: SHELLY TRUONG MD MD Review Statement Documenting Attending: SULMA VALDOVINOS,LAURY
== END 2016-05-22 15:10 | DRG 191 ==
LOC: ENRESERVDT → ENRESERVTM → ERH 22:37 → 1NO 23:55 → ERHI 23:55 → 1NO 05-20 02:14
PROVIDERS: Pediatrics; ADMIT Student in an Organized Health Care Education/Training Program
DX: J44.1 Chronic obstructive pulmonary disease with (acute) exacerbation (principal); J96.10 Chronic respiratory failure, unspecified whether with hypoxia or hypercapnia; I27.2 Other secondary pulmonary hypertension; I11.0 Hypertensive heart disease with heart failure; I50.32 Chronic diastolic (congestive) heart failure; R07.89 Other chest pain; Z99.81 Dependence on supplemental oxygen; F17.210 Nicotine dependence, cigarettes, uncomplicated; Z95.2 Presence of prosthetic heart valve; F41.8 Other specified anxiety disorders; E78.5 Hyperlipidemia, unspecified
CPT/HCPCS: 1NP; ERO; 36415; 80307; 81001; 82436; 87040; 87804; 87804-59; 93005; 93010; J0131; J0456; J1644; J1940; J2310; J2930; J3490; J7060; J7512

== ENCOUNTER 2017-04-17 16:59 | Emergency (ER) | payer OTHER, MEDICARE ==
[~2017-04-17] VITALS: Ht 167.6 cm; Wt 88.5 kg
[~2017-04-17 16:59] MED LIST changes: +ALPRAZOLAM0.5 M4 PO; +AMBIEN5 M1 PO; +AMLODIPINE BESYL5 M1 PO; +AZITHROMYCIN500 M3 PO; +BREO ELLIPTA 11 EACH INH; +FLUTICASONE PRO16 GM NASB; +METOPROLOL TART50 M1 PO; +NEURONTIN300 M1 PO; +OMEPRAZOLE40 M1 PO; +PHENYTOIN SODI100 MG PO; +PREPARATION H26 GM TOP; +PROAIR HFA8.5 GM INH; +VENTOLIN HFA18 GM INH; +ZOLPIDEM TARTRAT5 M1 PO
--- NOTE | 2017-04-17 17:19 | ED PSYCHIATRIC COMPLAINT ---
History of Present Illness General Chief Complaint: Psychiatric Related Complaint Stated Complaint: BIBA HAVING "FREAKY THOUGHTS" Source: patient, old records Exam Limitations: no limitations Vital Signs & Intake/Output Vital Signs & Intake/Output Vital Signs Date Time Temp Pulse Resp B/P B/P Pulse O2 O2 Flow FiO2 Mean Ox Delivery Rate 04/18 0851 98.1 74 18 142/70 98 Nasal 3.0L Cannula 04/18 0609 98.4 75 16 150/80 98 Nasal 3.0L Cannula 04/17 2234 98.2 67 16 126/70 95 Nasal 2.0L Cannula 04/17 1956 97.6 69 18 130/77 97 04/17 1749 Nasal 3.0L Cannula 04/17 1725 97.6 67 20 161/93 96 Nasal 3.0L Cannula ED Intake and Output 04/18 0000 04/17 1200 Intake Total Output Total Balance Patient 195 lb Weight Weight Reported by Patient Measurement Method Allergies Coded Allergies: SHANI Inhibitors (Severe, ANGIODEMA 05/17/16) Penicillins (Severe, ANGIODEMA 05/17/16) shellfish derived (UNKNOWN PER PT EATS SHRIMP FINE 05/17/16) aspirin (BODY BREAKS OUT IN SWEATS, GI UPSET 05/17/16) Reconcile Medications Albuterol Sulfate (Ventolin Hfa) 90 MCG HFA.AER.AD 2 PUF INH Q4-6 PRN PRN breath (Reported) Alprazolam 0.5 MG TABLET 1 TAB PO DAILY NEEDED PRN ANXIETY (Reported) Amlodipine Besylate 5 MG TABLET 1 TAB PO DAILY HEART (Reported) Atorvastatin Calcium (Lipitor) 40 MG TABLET 1 TAB PO QPM CHOLESTEROL ( Reported) Calcium Citrate/Vitamin D3 (Citracal + D Maximum Caplet) 1 EACH TABLET 1 TAB PO DAILY SUPPLEMENT (Reported) Carvedilol (Coreg) 25 MG TABLET 1 TAB PO BID HEART (Reported) Fluticasone/Vilanterol (Breo Ellipta 100-25 Mcg INH) 100 MCG-25 MCG/DOSE BLST.W.DEV 1 PUFF INH DAILY RESPIRATORY (Reported) Furosemide (Lasix) 40 MG TABLET 40 MG PO DAILY CHF Gabapentin (Neurontin) 300 MG CAPSULE 1 CAP PO TID NEUROPATHY (Reported) Omeprazole 40 MG CAPSULE.DR 1 CAP PO DAILY GI (Reported) Oxycodone HCl/Acetaminophen (Percocet 5-325 MG Tablet) 5 MG-325 MG TABLET 1 TAB PO Q6-PRN PRN PAIN . Phenytoin Sodium Extended 100 MG CAPSULE 2 CAP PO BID sizure (Reported) Tylenol With Codeine (Tylenol With Codeine #3 Tablet) 1 EACH TABLET 1 TAB PO TID PRN PAIN (Reported) Valsartan (Diovan) 40 MG TABLET 1 TAB PO BID HEART Zolpidem Tartrate 5 MG TABLET 1 TAB PO QPMP PRN SLEEP (Reported) Triage Nurses Notes Reviewed? yes HPI: Patient presents for evaluation of insomnia and sadness that began gradually over the past 2 months. Patient asked visiting nurse for possible prescription for depression there when the visiting nurse asked about suicide ideation the patient replied in the affirmative. This prompted a call to her primary care doctor to subsequent emergency department visit. Patient denies any plan or prior attempts of suicide. Patient is becoming more despondent about her medical problems and her inability to perform pleasurable tasks such as fishing. (Myranda VALDOVINOS,Luis San) Past History Travel History Traveled to [facility] past 21 day No Medical History Any Pertinent Medical History? 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 FATHER (CVA). Hx Contributory? No (Luis Whitmore MD) Review of Systems Review of Systems Constitutional: Reports: no symptoms. EENTM: Reports: no symptoms. Respiratory: Reports: no symptoms. Cardiovascular: Reports: no symptoms. GI: Reports: no symptoms. Genitourinary: Reports: no symptoms. Musculoskeletal: Reports: no symptoms, back pain (CHRONIC). Skin: Reports: no symptoms. Neurological/Psychological: Reports: see HPI. Hematologic/Endocrine: Reports: no symptoms. Immunologic/Allergic: Reports: no symptoms. All Other Systems: Reviewed and Negative (Myranda VALDOVINOS,Luis San) Physical Exam Physical Exam General Appearance: SEE BELOW Neurological/Psychiatric: SEE BELOW Comments: General: Alert, calm, cooperative, AAO X 3 Head: Normocephalic, atraumatic Eyes: Normal inspection, no nystagmus, EOMI Ears: Normal inspection Nose: Normal inspection Throat: Moist mucosa Neck: Supple, no goiter Heart: Regular rate and rhythm, no murmurs rubs or gallops Lungs: Clear to auscultation bilaterally with good air entry Abdomen: Soft nontender nondistended, normal bowel sounds Chest: Nontender Extremities: Normal range of motion grossly, no tremors present, no cyanosis clubbing or edema of the upper extremities Neurologic: cranial nerves II through XII grossly intact, speech clear but soft and slow in response, gait normal Psychiatric: No apparent delusions or hallucinations, no pressured speech or thought blocking, subdued/depressed affect SAD PERSONS Done? deferred to crisis (Myranda VALDOVINOS,Luis San) Progress Differential Diagnosis: depression, bipolar, personality disorder, intoxication Plan of Care: Orders Procedure Date/time Status Regular Diet 04/18 L Active Continuous Observation Monitor 04/17 1802 Active URINE DRUG SCREEN FOR ER ONLY 04/17 1802 Complete ETHANOL 04/17 1802 Complete CBC WITHOUT DIFFERENTIAL 04/17 1802 Complete BASIC METABOLIC PANEL 04/17 1802 Complete ED CRISIS PSYCH CONSULT 04/17 1802 Active Laboratory Tests 04/17/17 1850: Urine Opiates Screen 2707.00 H, Methadone Screen < 40, Barbiturate Screen 87, Ur Phencyclidine Scrn < 6.00, Amphetamines Screen < 100, U Benzodiazepines Scrn < 85, Urine Cocaine Screen < 50, Urine Cannabis Screen < 5.00 04/17/17 1820: Anion Gap 11, Estimated GFR 45 L, BUN/Creatinine Ratio 13.3, Glucose 101 H, Calcium 8.4, CBC w Diff NO MAN DIFF REQ, RBC 4.53, MCV 79.1 L, MCH 25.9 L, RDW 15.2 H, MPV 7.8, Gran % 54.4, Lymphocytes % 29.6, Monocytes % 10.3 H, Eosinophils % 5.2 H, Basophils % 0.5, Absolute Granulocytes 3.0, Absolute Lymphocytes 1.6, Absolute Monocytes 0.6, Absolute Eosinophils 0.3, Absolute Basophils 0, PUBS MCHC 32.8 L, Serum Alcohol < 10.0 7 AM 04/18 PATIENT SIGNED OUT TO ME BY DR GONZALEZ, PENDING CRISIS REEVALUATION. 8:50 AM CLEARED BY PSYCHIATRY FOR DISCHARGE HOME. UNSPECIFIED DEPRESSION, HAS GFP APPOINTMENT ON SUNDAY. (Cecelia VALDOVINOS,Linda) Comments: 04/17/2017 11:27:20 PM patient signed out to Dr. 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 Crisis evaluation pending. (Myranda VALDOVINOS,Luis San) Hand-Off Endorsed To: Linda Rai MD Endorsed Time: 0700 (Carlos VALDOVINOS,Sage Mata) Departure Departure Condition: Stable Clinical Impression Primary Impression: Depression Referrals: Althea Oh MD (PCP/Family) Departure Forms: Customer Survey General Discharge Information (Myranda VALDOVINOS,Luis San) Departure Time of Disposition: 855 Disposition: HOME OR SELF CARE Additional Instructions: FOLLOW UP WITH YOUR [employer] FACULTY APPOINTMENT ON SUNDAY SCHEDULED RETURN TO THE ER FOR ANY CHANGING OR WORSENING SYMPTOMS (Linda Rai MD)
[2017-04-17 18:43] LABS: ABSOLUTE BASOPHIL COUNT 0 /CUMM (0.0-0.2); ABSOLUTE EOSINOPHIL COUNT 0.3 /CUMM (0.0-0.7); ABSOLUTE LYMPH COUNT 1.6 /CUMM (1.2-3.4); ABSOLUTE MONOCYTE COUNT 0.6 /CUMM (0.10-0.60); BASOPHIL % 0.5 % (0.0-2.0); EOSINOPHIL % 5.2 % (0-5); GRANULOCYTE % 54.4 % (42.2-75.2); HEMATOCRIT 35.8 % (37-47); MEAN CORPUSCULAR HGB 25.9 PG (27.0-31.0); MEAN CORPUSCULAR HGB CONC 32.8 G/DL (33.0-37.0); MEAN CORPUSCULAR VOLUME 79.1 FL (81.0-99.0); MEAN PLATELET VOLUME 7.8 FL (7.4-10.4); PLATELET COUNT 178 /CUMM (130-400); RBC DISTRIBUTION WIDTH 15.2 % (11.5-14.5); RED BLOOD CELL CT 4.53 /CUMM (4.20-5.40); WHITE BLOOD CELL COUNT 5.5 /CUMM (4.8-10.8)
--- NOTE | 2017-04-17 20:46 | ED PSYCH CRISIS CONSULTATION ---
See Addendum Crisis Consult Basic Assessment Date of Consult: 04/17/17 Responsible Person/Accompanied By: MEEK Insurance Authorization: Insurance #1: Insurance name: MEDICARE A Phone number: Policy number: [id number] Group number: Authorization number: ED Provider: Patient's ED Provider: Luis Whitmore MD Primary Care Physician: Patient's PCP: Althea Oh MD PCP's Current Psychiatrist: None Chief Complaint: Psychiatric Related Complaint Patient's Quote: " I don't know why they brought me to you all." Present Illness: The patient is a 67 year old female presenting from home, on the recommendation of her PCP and visiting nurse, after she made some concerning statements. The patient presents calm, cooperative and with euthymic mood. She was sitting in bed connected to oxygen, as she requires it at baseline. She states that she is not clear why she was sent here, however does recall talking about her depression and different ways to kill yourself. She states that she was talking about it, in the context of answering the questions asked by the visiting nurse. She states that she does get depressed and rates it a 6-7 out of 10, 10 being the most severe. She states that her depression is related to not being able to do things for herself, as she used to. She denies any current anxiety, however states that she does feel anxious at times. She states that she does not feel helpless, however sometimes feels hopeless. She reports that she finds it difficult to stay asleep and only gets 4 to 5 hours of sleep, at times. She reports that her appetite is "off and on," noting that it depends of the day. She notes that she "sometimes," has difficulty concentrating. She reports that she has never had any formal mental health treatment, however has been treated with antidepressants through her PCP. She states that the medications were helpful, noting she does not know what the names were and she does not know why there were discontinued. She denies any current or history of HI / AH / VH. She denies any current SI and states that she has never attempted to kill herself. She reports hat she has medical issues; including heart issues, back pain and COPD, which limit her ability to do things that she used to enjoy. She is single , has 3 adult children (46, 49, & 51), and resides with her sister and at times with her niece. She states that her middle son is in [place], however the majority of her children, grandchildren and great [place]. She does not believe that she needs to be here and would like to be discharged home and does not think OP treatment would be helpful. SW spoke with her sister, Heather Argueta ([phone]), for collateral information. Heather states that she was there when the patient was sent to the ED, however "her eyes were closed," and she only heard parts of the conversation. Heather states that she is not concerned about the patients safety and has never known her to be suicidal. Heather believes that the patient should be discharged home and believes that the visiting nurse was concerned about the patients depression. Heather is aware that the patient will be staying over night for additional collateral form the PCP an visiting nurse. Patient's Address: [address] [place] [address] Other Phone Number: Who Do You Live With? Sister Family/Informants Interviewed: Sister- Heather Argueta- [phone] Allergies - Coded Allergies: SHANI Inhibitors (Severe, ANGIODEMA 05/17/16) Penicillins (Severe, ANGIODEMA 05/17/16) shellfish derived (UNKNOWN PER PT EATS SHRIMP FINE 05/17/16) aspirin (BODY BREAKS OUT IN SWEATS, GI UPSET 05/17/16) Current Medications - Scheduled Medications Amlodipine Besylate 5 MG TABLET 1 TAB PO DAILY HEART #90 (Reported) Entered as Reported by Quinton Landin on 01/09/17 0958 Atorvastatin Calcium (Lipitor) 40 MG TABLET 1 TAB PO QPM CHOLESTEROL ( Reported) Entered as Reported by Quinton Landin on 06/30/15 1048 Calcium Citrate/Vitamin D3 (Citracal + D Maximum Caplet) 1 EACH TABLET 1 TAB PO DAILY SUPPLEMENT (Reported) Entered as Reported by Quinton Landin on 06/30/15 1055 Carvedilol (Coreg) 25 MG TABLET 1 TAB PO BID HEART (Reported) Entered as Reported by Quinton Landin on 06/30/15 1048 Fluticasone Propionate 50 MCG/ACTUATION SPRAY.SUSP 1 SPRAY NASB DAILY ALLERGIES #16 (Reported) Entered as Reported by Quinton Landin on 01/09/17 1000 Fluticasone/Vilanterol (Breo Ellipta 100-25 Mcg INH) 100 MCG-25 MCG/DOSE BLST.W.DEV 1 PUFF INH DAILY RESPIRATORY #60 (Reported) Entered as Reported by Michaela Howard on 05/19/16 2318 Furosemide (Lasix) 40 MG TABLET 40 MG PO DAILY CHF #30 TAB Prescribed by Richard Austin MD on 01/11/17 Gabapentin (Neurontin) 300 MG CAPSULE 1 CAP PO TID NEUROPATHY (Reported) Entered as Reported by Michaela Howard on 05/19/16 231 Omeprazole 40 MG CAPSULE.DR 1 CAP PO DAILY GI #30 (Reported) Entered as Reported by Michaela Howard on 05/19/16 2318 Phenytoin Sodium Extended 100 MG CAPSULE 2 CAP PO BID sizure (Reported) Entered as Reported by Teressa Rose on 01/09/17 1119 Valsartan (Diovan) 40 MG TABLET 1 TAB PO BID HEART 14 Days Prescribed by Dianne Christina on 11/15/15 Scheduled PRN Medications Albuterol Sulfate (Ventolin Hfa) 90 MCG HFA.AER.AD 2 PUF INH Q4-6 PRN PRN breath (Reported) Entered as Reported by Teressa Rose on 01/09/17 1120 Alprazolam 0.5 MG TABLET 1 TAB PO DAILY NEEDED PRN ANXIETY #15 (Reported) Entered as Reported by Quinton Landin on 01/09/17 0958 Hydrocortisone (Preparation H) 1 % CREAM..G. 1 APPLIC TOP TID PRN Hemorrhoids #1 TUBE Prescribed by Richard Austin MD on 01/11/17 Oxycodone HCl/Acetaminophen (Percocet 5-325 MG Tablet) 5 MG-325 MG TABLET 1 TAB PO Q6-PRN PRN PAIN #15 TAB Prescribed by Susan Kothari MD on 01/25/17 Tylenol With Codeine (Tylenol With Codeine #3 Tablet) 1 EACH TABLET 1 TAB PO TID PRN PAIN (Reported) Entered as Reported by Quinton Landin on 06/30/15 1052 Zolpidem Tartrate 5 MG TABLET 1 TAB PO QPMP PRN SLEEP #30 (Reported) Entered as Reported by Quinton Landin on 01/09/17 1002 Laboratory Results: Laboratory Tests 04/17/17 1850: Urine Opiates Screen 2707.00 H, Methadone Screen < 40, Barbiturate Screen 87, Ur Phencyclidine Scrn < 6.00, Amphetamines Screen < 100, U Benzodiazepines Scrn < 85, Urine Cocaine Screen < 50, Urine Cannabis Screen < 5.00 04/17/17 1820: Anion Gap 11, Estimated GFR 45 L, BUN/Creatinine Ratio 13.3, Glucose 101 H, Calcium 8.4, CBC w Diff NO MAN DIFF REQ, RBC 4.53, MCV 79.1 L, MCH 25.9 L, RDW 15.2 H, MPV 7.8, Gran % 54.4, Lymphocytes % 29.6, Monocytes % 10.3 H, Eosinophils % 5.2 H, Basophils % 0.5, Absolute Granulocytes 3.0, Absolute Lymphocytes 1.6, Absolute Monocytes 0.6, Absolute Eosinophils 0.3, Absolute Basophils 0, PUBS MCHC 32.8 L, Serum Alcohol < 10.0 Past History Past Medical History Neurological: seizure, SEIZURES EENT: NONE Cardiovascular: CAD, hypertension, hyperlipidemia, DIASTOLIC CHF SUPRA AORTIC VALVULAR MEMBRANE Respiratory: COPD, emphysema, O2 DEP 3L Gastrointestinal: NONE Hepatic: NONE Renal: NONE Musculoskeletal: disk herniation Psychiatric: anxiety, depression Endocrine: diabetes, HYPOGLYCEMIC EVENTS POSSIBLE DIET CONTROLLED Blood Disorders: NONE Cancer(s): NONE 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 denies) Inpatient Treatment No (Patient denies) Outpatient Treatment No (Patient denies) Location of Treatment N/A Reason for Treatment N/A Dates of Treatment N/A Response to Treatment N/A Diagnosis by History: N/A Substance Use/Abuse History Drug Use/Abuse Substances Used/Abused No (Patient denies) First Use N/A Last Used N/A How much used/taken N/A How often N/A For how long N/A Route of use N/A Substance Abuse Treatment Substance Abuse Treatment Past Substance Abuse [place] No (Patient denies) Inpatient Treatment No Outpatient Treatment No Location of Treatment N/A Reason for Treatment N/A Dates of Treatment N/A Response to Treatment N/A Comments: The patient reports that she has a history of abusing alcohol about 23 years ago , however she never required any treatment to stop. Current Mental Status Mental Status Orientation: Person, Place, Situation Affect: Flat, Hopeless (at times) Speech: WNL Neuro-vegetative: Appetite Decreased, Appetite Increased, Concentration Poor, Sleep Disturbance, Hopeless at times Appearance Appearance- Dress/Hygiene: The patient was sitting in bed, in hospital attire, neat, clean and well groomed , wearing oxygen. Behaviors Thought Process: WNL Thought Content: WNL Memory: WNL Insight: WNL SI/HI Risk Assessment Past Suicidal Ideation/Attempts No (Patient denies) Current Suicidal Ideation/Att No (Patient denies) Past Homicidal Ideation/Att: No (Patient denies) Current Homicidal Ideation/Attempts No (Patient denies) Degree of Intent: The patient notes that during the routine questions from the visiting nurse today, she talked about feeling depressed at times and noted that she told the nurse she thinks about the different ways you can kill yourself. She denies any history of attempting suicide and denies any current thoughts about hurting herself. Her sister Heather has never known her to be suicidal and is not concerned that she will harm herself or any one else. Danger To: N/A Gravely Disabled: N/A Risk Factors: age (under 24/over 65), access to lethal means Lethality Ratin PTSD Checklist PTSD Done? patient declined (Denies trauma or abuse hx.) ED Management Sitter: Yes Restraints: No DSM5/PS Stressors/Medical Prob Diagnosis' (DSM 5, Stressors, Medical): F32.9 Unspecified Depressive Disorder Medical: COPD, heart issues and back pain Stressors: adjusting to not being able to do things for herself, the way she used to. Current GAF: 45 Comments: N/A Departure Disposition Psych Medical Clearance Date: 04/17/17 Medically Cleared at: 1944 Time Started: 1944 Time Ended: 2029 Psychiatrist Consulted: Dr. Dobbins Date Disposition Established: 04/17/17 Time Disposition Established: 2044 Plan for Disposition - Modality: Hold over to obtain collateral from her PCP and visiting nurse. Contact: N/A Telephone: N/A Rationale for Disposition: The patient presented to the ED on the recommendation of her PCP and visiting nurse for making concerning statements. The patient reports that she does have some depression and anxiety at times, however denies any thoughts to harm herself or others. She admits to talking about ways ot kill yourself today, however states that she had no intention of acting on these thoughts, noting it was in the context of questions asked by the visiting nurse. She is not clear on the name of her PCP (she states a female doctor took over, for her regular family doctor- Dr. Oh) or the name of the visiting nurse agency. The case was discussed with Dr. Dobbins and she would like to hold the patient over for reassessment and to obtain collateral from her PCP and her visiting nurse. Additional Instructions: N/A Referrals Althea VALDOVINOS,Althea (PCP/Family)
[2017-04-18 08:51] VITALS: BP 142/70
== END 2017-04-18 09:33 ==
LOC: ERH 16:59
PROVIDERS: Emergency Medicine
DX: F32.9 Major depressive disorder, single episode, unspecified (principal)
CPT/HCPCS: 80307; G0463; G0480

== ENCOUNTER 2017-09-04 01:25 | Inpatient (IN) | payer OTHER, MEDICARE ==
[~2017-09-04] VITALS: Ht 167.6 cm; Wt 90.3 kg
--- NOTE | 2017-09-04 12:10 | Admission Core Measures ---
Acute Coronary Syndrome (CM) ACS Core Measures Acute Coronary Syndrome Diagnosis No Congestive Heart Failure (NEW) CHF Core Measures Congestive Heart Failure Diagnosis No Cerebrovascular Accident CVA Core Measures CVA/TIA Diagnosis No Venous Thromboembolism VTE Core Dilma (View Protocol) VTE Risk Factors Surgery No Mechanical VTE Prophylaxis d/t N/A MechProphylax Ordered No VTE Pharm Prophylaxis d/t Surgical Contraindication Problem List As ranked by this Provider includes Assessment & Plan 1. Stenosis of right carotid artery HOME MEDS Home Med List Albuterol Sulfate (Ventolin Hfa) 90 MCG HFA.AER.AD 2 PUF INH Q4-6 PRN PRN breath (Reported) Alprazolam 0.5 MG TABLET 1 TAB PO DAILY NEEDED PRN ANXIETY (Reported) Amlodipine Besylate 5 MG TABLET 1 TAB PO DAILY HEART (Reported) Atorvastatin Calcium (Lipitor) 40 MG TABLET 1 TAB PO QPM CHOLESTEROL ( Reported) Carvedilol (Coreg) 25 MG TABLET 1 TAB PO BID HEART (Reported) Fluticasone/Vilanterol (Breo Ellipta 100-25 Mcg INH) 100 MCG-25 MCG/DOSE BLST.W.DEV 1 PUFF INH DAILY RESPIRATORY (Reported) Furosemide (Lasix) 40 MG TABLET 40 MG PO DAILY CHF Gabapentin (Neurontin) 300 MG CAPSULE 1 CAP PO TID NEUROPATHY (Reported) Omeprazole 40 MG CAPSULE.DR 1 CAP PO DAILY GI (Reported) Oxycodone HCl/Acetaminophen (Percocet 5-325 MG Tablet) 5 MG-325 MG TABLET 1 TAB PO Q6-PRN PRN PAIN Phenytoin Sodium Extended 100 MG CAPSULE 2 CAP PO BID sizure (Reported) Valsartan (Diovan) 40 MG TABLET 1 TAB PO BID HEART Zolpidem Tartrate 5 MG TABLET 1 TAB PO QPMP PRN SLEEP (Reported)
--- NOTE | 2017-09-04 13:53 | Operative Report ---
Operative/Inv Procedure Report Surgery Date: 09/04/17 Name of Procedure: Right carotid endarterectomy Pre-Operative Diagnosis: right carotid artery stenosis Post-Operative Diagnosis: same Estimated Blood Loss: 50ml to 100ml Surgeon/Identifier Horse: Woody VALDOVINOS,Mahendra employment assistant-- didi santiago Anesthesia: general endotracheal tube Specimens: right carotid plaque Condition: stable, extubated, transferred to pacu neurologically intact Operative Indication: 67 y/o f w/ mmp including morbid obesity, DM, active smoker, copd on home 02, cad s/p cabg found to have a high grade carotid artery stenosis via duplex US. Pt initially presented with right arm/leg numbness from radiculopathy. Found to have a carotid bruit so underwent US that showed > 90 stenosis. This was coroborated with CTA. Although the patient was asymptomatic we felt she was high risk for stroke given the signfiicant degree of stenosis. She underwent pre operative medical and cardiac clerance. Risks/benefits/alternatives of procedure discussed including her increased risk of medical complications and also risk of nerve injury and stroke (1-2% of each respectively. Informed consent was obtained and placed in the chart. Operative/Procedure Note Note: The patient was brought to the OR and time out was done to verify the patients name, mrn, . She was placed under general anethesia in the supine position. A radial nancy and multiple large bore iv's were placed. We then prepped and draped her right neck in a sterile fashion. We marked an incision over the anterior border of the sternocleidomastoid heading towards the sternum. The patient was given prophylactic antibiotics prior to skin incision. We made an incision with a 15 blade scalpel. We dissected through the subcutaenous tissue and platysma using bovie. We then used the bovie to dissect the fascia of the muscle and to retratact the sternocleidomastoid laterally. We then proceeded to identify the interal jugular vein and to mobilize it laterally using sharp dissection and tieing off any crossing veins. The fascial vein was ligated with ties and clips. We then identified the common carotid artery and circumferentially dissected this free. We continued to dissection distally. The hypoglossal nerve and vasgus nerves were both identified and we took great care to protect them. We gained circumferential control of the internal carotid and external carotid arteries with vessel loops. When we had dissected distally enough on the internal carotid artery to area of artery that was soft and with enough room to place a shunt, we then fully heparinized the patient. We then proceeded to clamp beginning with the internal carotid artery followed by the common and then the external. We then used an 11 blade to make an arteriotomy in the common carotid artery and we extended this up to the internal carotid artery until normal intima was identified. We then used a gokul shunt and positioned the proximal end within the common carotid artery and flushed all the air out of it. The distal end was then inserted into the internal carotid artery. The clamp oun the shunt was then released and we confirmed there was flow within the shunt. The shunt clamps were used to secure the shunt in place. We then used a freer elevator to perform the endarterectomy. We peformed eversion endarterectomy within the external carotid artery. The plaque feathered nicely in the internal and common carotid artery. We then removed an additional debries and used heparinzed saline on a lindaman to copiously irrigate the artery and confirm there was no additional debries. We then used a 8mm x 8cm bovine pericardial patch which we secured into place using 2 running 6.0 prolene sutures in usual continous fashion. The Shunt was removed when no additional sutures could be placed with it in the way. We removed the shunt from the internal first followed by the common carotid artery. The artery was copiously flushed and irrigated and re clamped. We then placed the remianing sutures and back bled and flushed the artery once more prior to placing the final sutures. The sutures were then tied down and the clamps released beginning with the external and common carotid artery and then finally the internal carotid artery. We then obtained hemostasis with some additional prolene sutures, gel foam and flow seal. We confirmed there was good flow in the artery using the doppler. We then proceeded to close the sternocleidomastoid using 2.0 vircyl. The plastyma was closed with 3.0 vicryl and the skin with 4.0 monocryl. We then placed a sterile dressing. The patient was extubated. She was neurologically intact and her neck was soft. She was transferred to pacu in stable condition. All counts were acurate at the end of the case. Findings: high grade, friable plaque beginning in the distal common carotid and extending into the interal carotid artery.
[2017-09-04 14:00] VITALS: BP 138/90
--- NOTE | 2017-09-04 17:19 | Patient Discharge Instructions ---
Discharge Instructions General Discharge Information You were seen/treated for: Right carotid artery stenosis You had these procedures: R carotid endarterectomy Watch for these problems: Increased pain, fever, chills, blurry vision, slurred speech, difficulty walking Do not soak the wound: Yes No bath, but you may shower: Yes Other wound care: Keep incision clean and dry Diet Continue normal diet: Yes Activity Full Activity/No Limits: No Activity Self Limited: Yes Acute Coronary Syndrome Inclusion Criteria At DC or during hospital stay patient has or had the following: ACS DIAGNOSIS No Discharge Core Measures Meds if any: Prescribed or Continued at Discharge Meds if any: NOT Prescribed or Continued at Discharge Congestive Heart Failure Inclusion Criteria At DC or during hospital stay patient has or had the following: CHF DIAGNOSIS No Discharge Core Measures Meds if any: Prescribed or Continued at Discharge Meds if any: NOT Prescribed or Continued at Discharge Cerebrovascular accident Inclusion Criteria At DC or during hospital stay patient has or had the following: CVA/TIA Diagnosis No Discharge Core Measures Meds if any: Prescribed or Continued at Discharge Meds if any: NOT Prescribed or Continued at Discharge Venous thromboembolism Inclusion Criteria VTE Diagnosis No VTE Type NONE VTE Confirmed by (Test) NONE Discharge Core Measures - Per Current guidelines, there needs to be overlap - treatment for the first 5 days of Warfarin therapy. - If discharged on Warfarin prior to 5 days of - overlap therapy, the patient will need to be - assessed for post discharge needs including - *Post discharge parental anticoagulation - *Warfarin and/or parental anticoagulation education - *Follow up date to check INR post discharge At least 5 days overlap therapy as Inpatient Yes Meds if any: Prescribed or Continued at Discharge Note: Overlap Therapy is Warfarin and Anticoagulant Meds if any: NOT Prescribed or Continued at Discharge
--- NOTE | 2017-09-04 18:54 | PN- Student ---
Shashank Garcia 09/04/17 1830: Subjective Subjective: Post op check Pain at incision site. feels tired and has mild nausea. Patient is hungry. Denies shortness of breath, denies chest pain, denies racing heart beat, and denies calf pain. Objective Objective: Vitals: Pulse Ox 100% on nasal canula Physical exam: General: No acute distress. Patient alert and oriented to time and place. Pulmonary: Expiratory wheeze Cardio: s1 and s2 abdomen: non distended and non tender Extremities: 2+ dorsalis pedis and posterior tibialis pulses. calves are soft and non tender bilaterally. Wound site: dressing is clean, dry and intact. no discharge from wound is noted. Results Results: Microbiology 09/04 140 UPPER RESP: Surveillance Culture - RECD 09/04 1404 GI: Surveillance Culture - RECD Assessment/Plan Assessment: 67 year old female post of day 0 for carotid endoarterectomy. Patient is stable. Plan: Zofran for nausea Gabapentin and or percocet and or acetaminophen as needed for pain ALPS for DVT prophylaxis Clear fluids, consider advancing diet in the AM Amara Fisher 09/04/171901: Assessment/Plan Plan: agree with above PA-S note No focal deficits. Unclear about whether she took her lasix today, pre- operatively. Reports some baseline shortness of breath. No chest pains. No dizziness. Not yet out of bed. Due to void. Tolerating clears. Eager to try food. She reportedly ambulates with cane @ baseline. d/c iv fluids give lasix 20 mg PO x 1 titrate off O2 as able f/u AM labs and chest xray PT eval in AM to assess safety for home dispo will d/w
[2017-09-05] VITALS: BP 102/78
[2017-09-05 04:37] LABS: ABSOLUTE BASOPHIL COUNT 0 /CUMM (0.0-0.2); ABSOLUTE EOSINOPHIL COUNT 0.1 /CUMM (0.0-0.7); ABSOLUTE GRANULOCYTE CT 4.1 /CUMM (1.4-6.5); ABSOLUTE LYMPH COUNT 1.4 /CUMM (1.2-3.4); ABSOLUTE MONOCYTE COUNT 0.9 /CUMM (0.10-0.60); BASOPHIL % 0.4 % (0.0-2.0); EOSINOPHIL % 1.5 % (0-5); GRANULOCYTE % 63.2 % (42.2-75.2); HEMATOCRIT 30.9 % (37-47); MEAN CORPUSCULAR HGB 26.8 PG (27.0-31.0); MEAN CORPUSCULAR HGB CONC 32.8 G/DL (33.0-37.0); MEAN CORPUSCULAR VOLUME 81.7 FL (81.0-99.0); MEAN PLATELET VOLUME 7.8 FL (7.4-10.4); PLATELET COUNT 134 /CUMM (130-400); RBC DISTRIBUTION WIDTH 15.5 % (11.5-14.5); RED BLOOD CELL CT 3.78 /CUMM (4.20-5.40); WHITE BLOOD CELL COUNT 6.5 /CUMM (4.8-10.8)
--- NOTE | 2017-09-05 06:05 | PN- Vascular Surgery ---
Subjective Subjective: Reports neck discomfort and some nausea. Tolerating some clears. Not yet out of bed. No dizziness. No shortness of breath. No chest pains. Given lasix 20 mg by mouth last night and iv fluids stopped. Voided 500 mls this morning. Objective Vital Signs and I&Os Vital Signs Date Time Temp Pulse Resp B/P B/P Pulse O2 O2 Flow FiO2 Mean Ox Delivery Rate 09/05 0400 99 Nasal 3.0L Cannula 09/05 0000 96 Nasal 3.0L Cannula 09/05 0000 98.0 78 18 102/78 96 Nasal 3.0L Cannula 09/04 2018 77 167/94 09/04 2018 78 167/94 09/05 1999 100 Nasal 3.0L Cannula 09/04 1842 Nasal 3.0L Cannula 09/04 1600 100 Nasal 3.0L Cannula 09/04 1405 100 Nasal 4.0L Cannula 09/04 1400 97.0 78 16 138/90 96 Nasal 4.0L Cannula Intake & Output 09/05 0800 09/05 0000 09/04 1600 09/04 0800 09/04 0000 09/03 1600 Intake Total 623 Output Total 0 Balance 623 Intake, IV 423 Intake, Oral 200 Number 0 Bowel Movements Output, Urine 0 Patient 199 lb 199 lb Weight Weight Bed scale Bed scale Measurement Method Physical Exam: General - alert & oriented. uncomfortable. Neck - incision approximated with skin glue. dry guaze placed over to prevent nasal cannula from sticking to her glue / incision. no hematoma appreciated. no drains. Lungs - decreased breath sounds b/l bases. clear Cardiac - s1s2. soft systolic murmur appreciated Abdomen - soft. nontender. Extremities - warm bilaterally. no c/c/e. calves soft and nontender b/l. athrombics active. Current Medications: Current Medications Sig/Robyn Start time Last Medication Dose Route Stop Time Status Admin Acetaminophen 650 MG Q6PRN PRN 09/04 1330 AC PO Albuterol Sulfate 3 ML Q4 HRS NEEDED PRN 09/04 1830 AC INH Albuterol Sulfate 2 PUF Q4P PRN 09/04 1215 AC INH Alprazolam 0.5 MG DAILY NEEDED PRN 09/04 1215 AC PO 09/11 1214 Amlodipine Besylate 5 MG DAILY 09/05 0900 AC PO Atorvastatin Calcium 40 MG 1700 06/12 1700 AC 09/04 PO 1620 Budesonide/ 2 PUF BID 09/04 2100 AC 09/04 Formoterol Fumarate INH 2312 Carvedilol 25 MG BID 09/04 2100 AC 09/04 PO 2019 Dextrose/Sodium 1,000 ML .[id number] 09/04 1330 DC 09/04 Chloride IV 1424 Duloxetine HCl 20 MG DAILY 09/05 0900 AC PO Fentanyl Citrate 250 MCG .STK-MED ONE 09/04 0719 DC IM 09/04 0720 Furosemide 40 MG DAILY 09/05 09 AC PO Furosemide 20 MG ONCE ONE 09/04 1900 DC 09/04 PO 09/04 1901 1953 Gabapentin 300 MG Q8 09/04 1400 AC 09/04 PO 2208 Hydromorphone HCl 2 MG .STK-MED ONE 09/04 1313 DC IM 09/04 1314 Hydromorphone HCl 2 MG .STK-MED ONE 09/04 1230 DC IM 09/04 1231 Losartan Potassium 12.5 MG BID 09/04 2100 AC 09/04 PO 2019 Midazolam HCl 2 MG .STK-MED ONE 09/04 0720 DC IM 09/04 0721 Omeprazole 40 MG DAILY AC 09/05 0700 AC PO Ondansetron HCl 4 MG Q8P PRN 09/04 1330 AC IV Oxycodone/ 1 TAB Q4-6 PRN PRN 09/04 1330 AC 09/04 Acetaminophen PO 1445 Oxycodone/ 2 TAB Q4-6 PRN PRN 09/04 1330 AC 09/05 Acetaminophen PO 0300 Phenytoin 200 MG BID 09/04 2100 AC 09/04 PO 2018 Zolpidem Tartrate 5 MG AT BEDTIME NEED.. 09/04 1215 AC PO Results Last 48 Hours of Labs: Laboratory Tests 09/05 0315 Chemistry Sodium (137 - 145 mmol/L) 137 Potassium (3.5 - 5.1 mmol/L) 4.5 Chloride (98 - 107 mmol/L) 102 Carbon Dioxide (22 - 30 mmol/L) 30 Anion Gap (5 - 16) 5 BUN (7 - 17 mg/dL) 20 H Creatinine (0.5 - 1.0 mg/dL) 1.4 H Estimated GFR (>60 ml/min) 37 L Glucose (65 - 99 mg/dL) 95 Calcium (8.4 - 10.2 mg/dL) 7.7 L Phosphorus (2.5 - 4.5 mg/dL) 5.5 H Magnesium (1.6 - 2.3 mg/dL) 1.8 Total Bilirubin (0.2 - 1.3 mg/dL) 0.3 AST (14 - 36 U/L) 18 ALT (9 - 52 U/L) 24 Albumin (3.5 - 5.0 g/dL) 2.8 L Hematology CBC w Diff NO MAN DIFF REQ WBC (4.8 - 10.8 /CUMM) 6.5 RBC (4.20 - 5.40 /CUMM) 3.78 L Hgb (12.0 - 16.0 G/DL) 10.1 L Hct (37 - 47 %) 30.9 L MCV (81.0 - 99.0 FL) 81.7 MCH (27.0 - 31.0 PG) 26.8 L MCHC (33.0 - 37.0 G/DL) 32.8 L RDW (11.5 - 14.5 %) 15.5 H Plt Count (130 - 400 /CUMM) 134 MPV (7.4 - 10.4 FL) 7.8 Gran % (42.2 - 75.2 %) 63.2 Lymphocytes % (20.5 - 51.1 %) 21.3 Monocytes % (1.7 - 9.3 %) 13.6 H Eosinophils % (0 - 5 %) 1.5 Basophils % (0.0 - 2.0 %) 0.4 Absolute Granulocytes (1.4 - 6.5 /CUMM) 4.1 Absolute Lymphocytes (1.2 - 3.4 /CUMM) 1.4 Absolute Monocytes (0.10 - 0.60 /CUMM) 0.9 H Absolute Eosinophils (0.0 - 0.7 /CUMM) 0.1 Absolute Basophils (0.0 - 0.2 /CUMM) 0 Assessment/Plan Assessment/Plan This 67 year old female with hx htn, hld, hx chf, seizures, anxiety, is POD#1 s/ p right carotid endarterectomy, for carotid artery stenosis tolerating some diet, off iv fluids anti-emetics prn nausea pain improves with percocet wean off o2. IST d/c a-line alps - dvt ppx ?ok to add hep sc today PT eval, to assess safety for home (she uses cane @ baseline) home meds re-ordered d/c planning will d/w Core Measures Venous Thromboembolism VTE Risk Factors Surgery No Mechanical VTE Prophylaxis d/t N/A MechProphylax Ordered No VTE Pharm Prophylaxis d/t Surgical Contraindication
[2017-09-05 08:00] VITALS: BP 134/70
--- NOTE | 2017-09-05 08:39 | PN- Vascular Surgery ---
Surgical Brief Attending Note Brief Attending Note: pt seen and examined. s/p right . hx of copd/cabg. neck c/d/i. soft. 5/5 strength in all extremities. cranial nerves intact. voice is normal. reported eating breakfast without difficulty. having pain in incision. due for pain meds. -ok for discharge today. Can follow up with me in 2 weeks. pain meds for dispo.
--- NOTE | 2017-09-05 11:09 | RADIOLOGY REPORT ---
EXAMINATION: XR PORTABLE CHEST CLINICAL INFORMATION: Postoperative hypoxia. Shortness of breath. Presumptive diagnosis of atelectasis, CHF. COMPARISON: Several prior chest x-rays, most recent of which is dated 08/14/2017. TECHNIQUE: Portable AP semierect view of the chest was obtained. FINDINGS: EKG leads overlie the chest. The patient is status post median sternotomy and CABG surgery. The cardiac mediastinal silhouette is enlarged, unchanged, most likely related to the AP semiupright projection. Calcification of the aortic arch is seen. Lungs bilaterally are symmetrically expanded. Minimal bibasilar subsegmental atelectasis is seen. No consolidation, effusion or pneumothorax is noted. No pulmonary edema is seen. Bony structures are unremarkable. IMPRESSION: 1. Minimal bibasilar atelectatic changes. 2. Enlarged cardiac silhouette, likely projectional.
[2017-09-05 12:00] VITALS: BP 94/60
[2017-09-05] MEDS ORDERED: PERCOCET 5-3251 EACH PO (14:21)
[2017-09-05 16:00] VITALS: BP 110/70
[2017-09-05 22:04] VITALS: BP 90/60
[2017-09-06 06:35] VITALS: BP 160/76
--- NOTE | 2017-09-06 09:28 | Surg Short-stay <48hrs Dis Sum ---
Visit Information Visit Dates Admission Date: 09/04/17 Discharge Date: 09/06/17 Surgical Short Stay DC Summary Admission Diagnosis: Right carotid artery stenosis Final Diagnosis: Same, s/p right carotid endarterectomy on 09/04/17 Procedure(s): Right carotid endarterectomy Summary/Significant Findings: Patient was admitted to the hospital for an elective right carotid endarterectomy. The procedure was tolerated well and patient was transferred to the ICU for close monitoring. Diet was advanced and tolerated. The patient was evaluated and treated by physical therapy. At the time of hospital discharge, the vital signs were stable, neurovascular status was intact, and pain was controlled with the use of oral pain medications. Condition at Discharge: Stable Discharge Disposition: home health services Discharge instructions provided to patient/family: Yes Post discharge follow-up plan: Follow up with Dr. Mckay in 2 weeks
[2017-09-06 09:29] VITALS: BP 160/76
--- NOTE | 2017-09-06 09:36 | PN- Vascular Surgery ---
Subjective Subjective: Patient reports improved postop pain. Reports ambulating with PT with a walker yesterday who recommended home PT. Tolerating a diet. Denies slurred speech, difficulty eating/speaking, nausea, vomiting, chest pain or sob. She offers no other complaints. Objective Vital Signs and I&Os Vital Signs Date Time Temp Pulse Resp B/P B/P Pulse O2 O2 Flow FiO2 Mean Ox Delivery Rate 09/06 0635 98.3 73 20 160/76 95 Nasal 3.0L Cannula 09/06 0000 100 Nasal 3.0L Cannula 09/05 2204 99.0 83 20 90/60 100 Nasal Cannula 09/05 2032 80 118/64 09/05 2032 80 118/64 09/05 1830 92 Nasal 3.0L Cannula 09/05 1600 92 Nasal 3.0L Cannula 09/05 1600 98.0 81 26 110/70 92 Nasal 3.0L Cannula 09/05 1333 97 Nasal 3.0L Cannula 09/05 1200 94 Nasal 3.0L Cannula 09/05 1200 98.2 76 18 94/60 94 Nasal 3.0L Cannula 09/05 0934 94 101/75 09/05 0934 94 101/75 09/05 0934 94 101/75 Intake & Output 09/06 1600 09/06 0800 09/06 0000 09/05 1600 09/05 0800 09/05 0000 Intake Total 200 180 740 300 623 Output Total 450 500 0 Balance 200 180 290 -200 623 Intake, IV 20 423 Intake, Oral 200 180 720 300 200 Number 0 0 0 Bowel Movements Output, Urine 450 500 0 Patient 199 lb Weight Weight Bed scale Measurement Method Physical Exam: General - resting comfortably in nad Neck - ice in place, incision healing well with mild swelling, soft, no erythema , drainage or hemtoma noted Cardiac - s1s2, + systolic murmur Lungs - diminished at bases Abd - soft, nontender Ext - 5/5 strength in all extremities, nvi, no edema or calf tenderness Current Medications: Current Medications Sig/Robyn Start time Last Medication Dose Route Stop Time Status Admin Acetaminophen 650 MG Q6PRN PRN 09/04 1330 AC PO Albuterol Sulfate 3 ML Q4 HRS NEEDED PRN 09/04 1830 AC 09/05 INH 1829 Albuterol Sulfate 2 PUF Q4P PRN 09/04 1215 AC INH Alprazolam 0.5 MG DAILY NEEDED PRN 09/04 1215 AC PO 09/11 1214 Amlodipine Besylate 5 MG DAILY 09/05 0900 AC 09/05 PO 0934 Atorvastatin Calcium 40 MG 1700 09/04 1700 AC 09/05 PO 1647 Budesonide/ 2 PUF BID 09/04 2100 AC 09/05 Formoterol Fumarate INH 2033 Carvedilol 25 MG BID 09/04 2100 AC 09/05 PO 203 Duloxetine HCl 20 MG DAILY 09/05 0900 AC 09/05 PO 0934 Furosemide 40 MG DAILY 09/05 0900 AC 09/05 PO 0934 Gabapentin 300 MG Q8 09/04 1400 AC 09/06 PO 0551 Losartan Potassium 12.5 MG BID 09/04 2100 AC 09/05 PO 203 Magnesium Oxide 400 MG BID 09/05 0900 DC 09/05 PO 09/05 Omeprazole 40 MG DAILY AC 09/05 0700 AC 09/06 PO 0551 Ondansetron HCl 4 MG Q8P PRN 09/04 1330 AC IV Oxycodone/ 1 TAB Q4-6 PRN PRN 09/04 1330 AC 09/06 [place]amin[place] PO 0612 Oxycodone/ 2 TAB Q4-6 PRN PRN 09/04 1330 AC 09/05 Acetaminophen PO 1007 Phenytoin 200 MG BID 09/04 2100 AC 09/05 PO 203 Zolpidem Tartrate 5 MG AT BEDTIME NEED.. 09/04 1215 AC PO Assessment/Plan Assessment/Plan 67 F with h/o htn, hld, hx chf, seizures and anxiety who is POD 2 s/p right CEA due to carotid artery stenosis who is recovering well, stable for discharge Cont cardiac diet Pain regimen, ice prn Home meds on board Encourage IS, ambulation Discharge with [facility] today Core Measures Venous Thromboembolism VTE Risk Factors Surgery No Mechanical VTE Prophylaxis d/t N/A MechProphylax Ordered No VTE Pharm Prophylaxis d/t Surgical Contraindication
== END 2017-09-06 11:30 | disposition home health service (06) | DRG 39 ==
LOC: SDA 01:25 → ENRESERV 13:00 → ENTRNSPT 13:39 → EDTRNSPTSTS 13:54 → CRI 14:15 → CMPTRNSPT 14:22 → ENTRNSPT 09-05 20:45 → EDTRNSPTSTS 09-05 20:52 → 2NA 09-05 21:07 → CMPTRNSPT 09-05 21:16 → ENPENDDIS 09-06 09:50 → 2NA 09-06 11:30
PROVIDERS: Physician Assistant
PROC: 03CK0Z6 (ICD-10-PCS; principal; 2017-09-04)
PROC: 03CH0ZZ Extirpation of Matter from Right Common Carotid Artery, Open Approach (ICD-10-PCS; 2017-09-04)
PROC: 03UK0KZ Supplement Right Internal Carotid Artery with Nonautologous Tissue Substitute, Open Approach (ICD-10-PCS; 2017-09-04)
DX: I65.21 Occlusion and stenosis of right carotid artery (principal); E66.01 Morbid (severe) obesity due to excess calories; J44.9 Chronic obstructive pulmonary disease, unspecified; Z99.81 Dependence on supplemental oxygen; I25.10 Atherosclerotic heart disease of native coronary artery without angina pectoris; Z95.1 Presence of aortocoronary bypass graft; F17.200 Nicotine dependence, unspecified, uncomplicated
CPT/HCPCS: 2NASP; CCU; 36415; 71045; 82436; 88304; 97110-GO; 97116-GO; 97161-GP; 97530-GO; J1644; J2001; J2405; J2720; J3490; J7042

== ENCOUNTER 2017-09-07 19:08 | Inpatient (IN) | payer OTHER, MEDICARE ==
[~2017-09-07] VITALS: Ht 167.6 cm; Wt 92.6 kg
--- NOTE | 2017-09-07 19:23 | ED GI/GU/ABDOMINAL COMPLAINT ---
History of Present Illness General Chief Complaint: Abdominal Pain/Flank Pain Stated Complaint: BIBA FOR ABD PAIN, DIFF BREATHING Source: patient Exam Limitations: no limitations Allergies Coded Allergies: SHANI Inhibitors (Severe, ANGIODEMA 05/17/16) Penicillins (Severe, ANGIODEMA 05/17/16) shellfish derived (UNKNOWN PER PT EATS SHRIMP FINE 05/17/16) aspirin (BODY BREAKS OUT IN SWEATS, GI UPSET 05/17/16) Reconcile Medications Albuterol Sulfate (Ventolin Hfa) 90 MCG HFA.AER.AD 2 PUF INH Q4-6 PRN PRN breath (Reported) Alprazolam 0.5 MG TABLET 1 TAB PO DAILY NEEDED PRN ANXIETY (Reported) Amlodipine Besylate 5 MG TABLET 1 TAB PO DAILY HEART (Reported) Atorvastatin Calcium (Lipitor) 40 MG TABLET 1 TAB PO QPM CHOLESTEROL ( Reported) Carvedilol (Coreg) 25 MG TABLET 1 TAB PO BID HEART (Reported) Fluticasone/Vilanterol (Breo Ellipta 100-25 Mcg INH) 100 MCG-25 MCG/DOSE BLST.W.DEV 1 PUFF INH DAILY RESPIRATORY (Reported) Furosemide (Lasix) 40 MG TABLET 40 MG PO DAILY CHF Gabapentin (Neurontin) 300 MG CAPSULE 1 CAP PO TID NEUROPATHY (Reported) Omeprazole 40 MG CAPSULE.DR 1 CAP PO DAILY GI (Reported) Oxycodone HCl/Acetaminophen (Percocet 5-325 MG Tablet) 5 MG-325 MG TABLET 1-2 TAB PO Q4-6 PRN PRN PAIN SCALE 4-6 (MODERATE) Phenytoin Sodium Extended 100 MG CAPSULE 2 CAP PO BID sizure (Reported) Valsartan (Diovan) 40 MG TABLET 1 TAB PO BID HEART Zolpidem Tartrate 5 MG TABLET 1 TAB PO QPMP PRN SLEEP (Reported) Triage Note: PT BIBA FOR MID EGIGASTRIC PAIN SINCE THIS AM PER PT. PT IS TAKING PAIN MEDS FOR RECENT SX ON NECK & STATES SHE HAS NOT HAD A BM IN A FEW DAYS. PT DOES NOT REMEMBER THE NAME OF HER PAIN MEDS Triage Nurses Notes Reviewed? yes ? n Is pt currently ? No Onset: Gradual Duration: day(s): Timing: recent history Quality/Severity: cramping Location: epigastric Radiation: no radiation Activities at Onset: none Modifying Factors: Improves With: rest. Associated Symptoms: chest pain HPI: 67-year-old female history of COPD and mitral valve replacement presents with right sided substernal chest pressure, 7 out of 10, associated also with midepigastric discomfort without nausea vomiting diarrhea fever chills headache dizziness diaphoresis or syncopal symptoms. She states that the chest pain began in the late afternoon. Her abdominal pain has been intermittent over the past 2-3 days. She is otherwise well and has no other concerns. (Carlos VALDOVINOS,Sage Mata) Vital Signs & Intake/Output Vital Signs & Intake/Output Vital Signs Date Time Temp Pulse Resp B/P B/P Pulse O2 O2 Flow FiO2 Mean Ox Delivery Rate 09/07 2320 94 Nasal 3.0L Cannula 09/07 2204 98.7 99 19 170/95 96 Nasal Cannula 09/07 1920 Nasal 2.0L Cannula 09/07 1917 98.9 75 19 185/85 94 Nasal 2.0L Cannula ED Intake and Output 09/08 0000 09/07 1200 Intake Total Output Total Balance Patient 199 lb Weight Weight Standing Scale Measurement Method (Yazan Guerrero) Past History Travel History Traveled to [place] past 21 day No Medical History Any Pertinent Medical History? 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 FATHER (CVA). Hx Contributory? No (Carlos VALDOVINOS,Sage Mata) Review of Systems Review of Systems Constitutional: Denies: see HPI. (Carlos VALDOVINOS,Sage Mata) Physical Exam Physical Exam Gastrointestinal: normal bowel sounds, soft, non-tender, no organomegaly Comments: Review of Systems - except as otherwise noted in HPI Review of Systems Constitutional:no symptoms. EENTM:no symptoms. Respiratory:no symptoms. Cardiovascular:no symptoms. GI:no symptoms. Genitourinary:no symptoms. Musculoskeletal:no symptoms. Skin:no symptoms. Neurological/Psychological:no symptoms. Hematologic/Endocrine:no symptoms. Immunologic/Allergic:no symptoms. All Other Systems: Reviewed and Negative Physical Exam Physical Exam General Appearance: well developed/nourished, no apparent distress Head: atraumatic, normal appearance Eyes: Bilateral: normal appearance. Ears, Nose, Throat: normal pharynx, normal ENT inspection Neck: normal inspection, supple, full range of motion Respiratory: normal breath sounds, chest non-tender, no respiratory distress, quiet respiration, lungs clear Cardiovascular: regular rate/rhythm Gastrointestinal: normal bowel sounds, soft, non-tender, no organomegaly Back: normal inspection, normal range of motion Extremities: normal inspection, normal capillary refill, normal range of motion, no edema Neurologic/Psych: no motor/sensory deficits, awake, alert, oriented x 3 Skin: intact, normal color, warm/dry Core Measures ACS in differential dx? No Sepsis Present: No Sepsis Focused Exam Completed? No (Carlos VALDOVINOS,Sage Mata) Progress Differential Diagnosis: KS versus unstable angina versus constipation versus gastritis versus recent reflux versus other Diagnostic Imaging: Viewed by Me: Radiology Read, CT Scan. Discussed w/RAD: Radiology Read, CT Scan. Radiology Impression: PATIENT: JUNIOR ASENCIO PRESENT AGE: 67 PATIENT ACCOUNT NO: [id number] : 49 LOCATION: [facility] ORDERING PHYSICIAN: Sage Gonzalez MD SERVICE DATE: 09/07/17 EXAM TYPE: CAT - CT ABD & PELVIS W IV CONTRAST; CTA CHEST-PULMONARY EMBOLISM EXAMINATION: CT ANGIOGRAM OF THE CHEST WITH CONTRAST (CT PULMONARY ANGIOGRAM FOR PE) CT ABDOMEN AND PELVIS WITH INTRAVENOUS CONTRAST CLINICAL INFORMATION: Recent surgery. Shortness of breath. COMPARISON: CT images of the abdomen and pelvis from 06/05/2017. Chest CT from 04/26/2017. TECHNIQUE: Prior to contrast administration, noncontrast localization images were obtained. Subsequently, multidetector volumetric imaging was performed from the thoracic inlet to below the diaphragms following the administration of 95 mL Optiray 320 intravenous contrast. No contrast reaction reported. Sagittal, coronal, and MIP oblique sagittal reformatted images were obtained on the CT workstation, uploaded to PACS, and reviewed. After completion of chest imaging, multidetector CT imaging of the abdomen and pelvis was performed. DLP: Total exam dose-length product 1049 mGy-cm FINDINGS: CHEST- QUALITY OF STUDY/CONTRAST BOLUS: Satisfactory. PULMONARY ARTERIES: Pulmonary arteries are normal in size. No embolic filling defects are identified within the main, lobar or segmental vessels. Some of the peripheral vessels are suboptimally evaluated in the lingula and left lower lobe due to image blurring from cardiac or respiratory motion. An area of decreased attenuation in the lateral segment branch of the left lower lobe appears to represent artifact (sagittal reformatted image 36 of 117; axial image 240 of 478 ). THORACIC AORTA: Atherosclerotic calcification of thoracic aorta without aneurysm or dissection. Aortic valve is replaced. LUNGS AND PLEURA: Moderate centrilobular emphysema. No acute pulmonary consolidation, edema, pneumothorax or pleural effusion. Within the medial aspect of the apicoposterior segment left upper lobe, there is an elongated tubular, nodular lesion consistent with neoplastic disease; it measures up to 1.9 cm AP diameter compared to 0.8 cm on 04/26/2017 and extends over craniocaudal distance of approximately 6 cm. It encases some of the upper lobe arteries and extends along a bronchus to the hilum where there is associated hilar lymphadenopathy. CARDIOVASCULAR: The heart size is normal. There is extensive atherosclerotic calcification of coronary arteries. The left ventricular wall is hypertrophied. No pericardial effusion. MEDIASTINUM: The esophagus has normal wall thickness. Again noted is a multinodular thyroid gland. LYMPHATICS: No pathologic sized axillary or internal mammary lymph nodes. Largest lymph node of the superior left hilum measures 2.1 cm AP. There is soft tissue thickening around the left mainstem bronchus. A prominent precarinal lymph node is 1.6 cm AP (compared to a size of 1.1 cm on ). A prominent lymph node at the level of the aortopulmonary window is 1 cm short axis dimension (image 155, series 2). THORACIC OSSEOUS STRUCTURES: The sternotomy is healed. No aggressive osseous lesions within the thorax. ABDOMEN AND PELVIS - HEPATOBILIARY: Liver has normal size, contour and attenuation. Gallbladder is unremarkable. Common bile duct exhibits stable enlargement ( measures approximately 1 cm diameter). There is mild dilatation of central intrahepatic bile ducts. No evidence of hepatic metastasis. PANCREAS: Unremarkable. SPLEEN: Unremarkable. ADRENAL GLANDS: Unremarkable. KIDNEYS, URETERS, BLADDER: No acute findings. Again noted are the hyperdense renal cortical cysts. There are renal vascular calcifications. No nephrolithiasis, hydronephrosis or perinephric edema. The urinary bladder is unremarkable. GI TRACT AND PERITONEUM: Loops of bowel are normal in caliber. Appendix is normal. No evidence of acute inflammation or obstruction along the gastrointestinal tract. ABDOMINAL WALL: Unremarkable. VASCULAR: There is extensive atherosclerotic calcification of the aorta and branch vessels, including renal arteries, with bilateral renal artery stenosis. The proximal abdominal aorta at the level of the celiac trunk measures 3.5 cm transverse and 3 cm AP. The infrarenal abdominal aorta measures up to a maximum of 2.9 cm AP and 2.6 cm transverse. The common iliac arteries are ectatic. LYMPH NODES: No pathologic sized lymph nodes in the abdomen or pelvis. No inguinal lymphadenopathy. PELVIC VISCERA: There are calcified subserosal leiomyomas of the posterior uterus. No adnexal mass. No pelvic free fluid. OSSEOUS STRUCTURES: Facet arthropathy of L4- L5 and L5-S1. Osteoarthritis of the right sacroiliac joint. No suspicious bone lesions. IMPRESSION: 1. No evidence of pulmonary embolism. 2. 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 The infiltrative mass of the left upper lobe has significantly increased in size compared to 04/26/2017. It extends to level of the left hilum. There is left hilar and mediastinal lymphadenopathy. 3. Moderate pulmonary emphysema. 4. Atherosclerotic disease of coronary arteries. There is wall hypertrophy of the left ventricle. No acute pulmonary edema or pleural effusion. 5. No evidence of metastatic disease within the abdomen or pelvis. 6. There is stable dilatation of the common bile duct. No acute findings in the abdomen or pelvis compared to 06/05/2017. 7. Severe atherosclerotic disease of peripheral vessels. There is stable aneurysmal dilatation of the proximal abdominal aorta. DICTATED BY: Fahad Hilario MD DATE/TIME DICTATED:2128 TRANSCRIBING OPERATOR HEAD:EDIS DATE/TIME TRANSCRIBED:09/07/172128 CONFIDENTIAL, DO NOT COPY WITHOUT APPROPRIATE AUTHORIZATION. <Electronically signed in Other Vendor System> SIGNED BY: Fahad Hilario MD 09/07/17 CXR Impression: PATIENT: JUNIOR ASENCIO PRESENT AGE: 67 PATIENT ACCOUNT NO: [id number] : 49 LOCATION: [facility] ORDERING PHYSICIAN: Sage Gonzalez MD SERVICE DATE: 09/07/17 EXAM TYPE: RAD - XRY- PORTABLE CHEST XRAY EXAMINATION: XR PORTABLE CHEST CLINICAL INFORMATION: Dyspnea COMPARISON: 09/05/2017 TECHNIQUE: Portable frontal view of the chest was obtained. FINDINGS: Lungs are symmetrically expanded and grossly clear on this single view exam. No focal consolidation, edema or pleural effusion. Cardiac silhouette is normal in size for an AP portable examination technique. The sternotomy wires are intact. The aortic valve is replaced. There is atherosclerotic calcification of the aorta. Old, healed fractures of right posterior third and fourth ribs. IMPRESSION: No acute pulmonary findings compared to 09/05/2017. DICTATED BY: Fahad Hilario MD DATE/TIME DICTATED:09/07 TRANSCRIBING OPERATOR HEAD:EDIS DATE/TIME TRANSCRIBED:09/07/171948 CONFIDENTIAL, DO NOT COPY WITHOUT APPROPRIATE AUTHORIZATION. <Electronically signed in Other Vendor System> SIGNED BY: Fahad Hilario MD 09/07/171955 Initial ED EKG: incomplete lbbb, st depressions I, II Repeat EKG: unchanged (Carlos VALDOVINOS,Sage Mata) Plan of Care: Orders Procedure Date/time Status Nothing by Mouth 09/08 B Active LIPID PANEL 09/08 06 Active BASIC ELECTROLYTES PLUS BUN&CR 09/08 06 Active ECHOCARDIOGRAM 09/08 0600 Active TROPONIN LEVEL 09/07 2339 Active Pathway - chart 09/07 2331 Active Patient Data 09/07 2331 Active TROPONIN LEVEL 09/07 2331 Active Code Status 09/07 2331 Active Patient Data 09/07 2314 Active Patient Data 09/07 2313 Active Saline Lock 09/07 225 Active Misc Message 09/07 2253 Active ED Holding Orders 09/07 2253 Active Admit to inpatient 09/07 225 Active Vital Signs 09/07 225 Active Code Status 09/07 225 Complete EKG 09/07 221 Active TROPONIN LEVEL 09/07 192 Complete PARTIAL THROMBOPLASTIN TIME 09/07 192 Complete PROTHROMBIN TIME 09/07 192 Complete LIPASE 09/07 1922 Complete HEPATIC FUNCTION PANEL 09/07 1922 Complete D-DIMER 09/07 1922 Complete CBC WITHOUT DIFFERENTIAL 09/07 1922 Complete BASIC METABOLIC PANEL 09/07 1922 Complete AMYLASE 09/07 1922 Complete EKG 09/07 1909 Active CBC WITHOUT DIFFERENTIAL 09/07 06 Active Pathway - chart 09/07 UNK Active House Staff 09/07 UNK Active VTE Mechanical Prophylaxis 09/07 UNK Active Vital Signs 09/07 UNK Active Telemetry/Billboard Installer 09/07 UNK Active Intake & Output 09/07 UNK Active Activity/Ambulation 09/07 UNK Active Current Medications Sig/Robyn Start time Last Medication Dose Stop Time Status Admin Multivitamins 1 TAB DAILY 09/08 09 AC (Theragran Vitamins) Laboratory Tests 09/07/171934: PT Cancelled, INR Cancelled, APTT Cancelled 09/07/171934: Anion Gap 5, Estimated GFR 45 L, BUN/Creatinine Ratio 15.8, Glucose 104 H, Calcium 8.7, Total Bilirubin 0.2, Direct Bilirubin 0.2, AST 28, ALT 30, Alkaline Phosphatase 98, Troponin I 0.05, Total Protein 6.8, Albumin 3.4 L, Amylase 68, Lipase 203, PT 10.4, INR 0.95, APTT 31, D-Dimer High Sensitivty 376 H, CBC w Diff NO MAN DIFF REQ, RBC 3.53 L, MCV 82.0, MCH 27.5, MCHC 33.6, RDW 14.9 H, MPV 7.7, Gran % 64.9, Lymphocytes % 21.3, Monocytes % 11.3 H, Eosinophils % 2.1 , Basophils % 0.4, Absolute Granulocytes 4.0, Absolute Lymphocytes 1.3, Absolute Monocytes 0.7 H, Absolute Eosinophils 0.1, Absolute Basophils 0 (Yazan Guerrero) Departure Departure Disposition: HOME OR SELF CARE Condition: Stable Clinical Impression Primary Impression: Chest pain, unspecified Secondary Impressions: Abdominal pain, Lung mass Referrals: Althea Oh MD (PCP/Family) Departure Forms: Customer Survey General Discharge Information Comments 09/07/17, 22:18... pt feels better after nitro x 2, mass noted on ct scan... pt and family seem to be unaware of prior mass. Admission Note Spoke With: Efe MD,Aartee Documentation of Exam: Documentation of any treatments & extenuating circumstances including Concerns Regarding Discharge (functional status, medication knowledge or non-compliance, living conditions, etc.) that warrant an admission rather than observation: pt with nitro responsive chest pain, no changes between admission and 2nd ekg, with st depressions in I, II. Pt is presently chest pain free. Pt also with mass in left upper lobe. Family states unaware. Merits further evaluation. discussed with dr. yun, marketing administrative assistant, pt merits admission (Carlos VALDOVINOS,Sage Mata) Departure Comments 09/07/17, 22:28.... discussed with dr. yun, pt merits admission, serial trops, ekgs, cards eval in am. (Akira TSANG,Yazan) Critical Care Note Critical Care Note Critical Care Time: 30-74 min (Carlos VALDOVINOS,Sage Mata)
--- NOTE | 2017-09-07 19:56 | RADIOLOGY REPORT ---
EXAMINATION: XR PORTABLE CHEST CLINICAL INFORMATION: Dyspnea COMPARISON: 09/05/2017 TECHNIQUE: Portable frontal view of the chest was obtained. FINDINGS: Lungs are symmetrically expanded and grossly clear on this single view exam. No focal consolidation, edema or pleural effusion. Cardiac silhouette is normal in size for an AP portable examination technique. The sternotomy wires are intact. The aortic valve is replaced. There is atherosclerotic calcification of the aorta. Old, healed fractures of right posterior third and fourth ribs. IMPRESSION: No acute pulmonary findings compared to 09/05/2017.
[2017-09-07 20:11] LABS: ABSOLUTE BASOPHIL COUNT 0 /CUMM (0.0-0.2); ABSOLUTE EOSINOPHIL COUNT 0.1 /CUMM (0.0-0.7); ABSOLUTE LYMPH COUNT 1.3 /CUMM (1.2-3.4); ABSOLUTE MONOCYTE COUNT 0.7 /CUMM (0.10-0.60); BASOPHIL % 0.4 % (0.0-2.0); EOSINOPHIL % 2.1 % (0-5); GRANULOCYTE % 64.9 % (42.2-75.2); HEMATOCRIT 28.9 % (37-47); MEAN CORPUSCULAR HGB 27.5 PG (27.0-31.0); MEAN CORPUSCULAR HGB CONC 33.6 G/DL (33.0-37.0); MEAN PLATELET VOLUME 7.7 FL (7.4-10.4); PLATELET COUNT 158 /CUMM (130-400); RBC DISTRIBUTION WIDTH 14.9 % (11.5-14.5); RED BLOOD CELL CT 3.53 /CUMM (4.20-5.40); WHITE BLOOD CELL COUNT 6.2 /CUMM (4.8-10.8)
[2017-09-07 20:25] LABS: PT 10.4 SEC (9.4-12.5); PTT 31 SEC (25-37)
--- NOTE | 2017-09-07 22:00 | CT SCAN REPORT ---
EXAMINATION: CT ANGIOGRAM OF THE CHEST WITH CONTRAST (CT PULMONARY ANGIOGRAM FOR PE) CT ABDOMEN AND PELVIS WITH INTRAVENOUS CONTRAST CLINICAL INFORMATION: Recent surgery. Shortness of breath. COMPARISON: CT images of the abdomen and pelvis from 06/05/2017. Chest CT from 04/26/2017. TECHNIQUE: Prior to contrast administration, noncontrast localization images were obtained. Subsequently, multidetector volumetric imaging was performed from the thoracic inlet to below the diaphragms following the administration of 95 mL Optiray 320 intravenous contrast. No contrast reaction reported. Sagittal, coronal, and MIP oblique sagittal reformatted images were obtained on the CT workstation, uploaded to PACS, and reviewed. After completion of chest imaging, multidetector CT imaging of the abdomen and pelvis was performed. DLP: Total exam dose-length product 1049 mGy-cm FINDINGS: CHEST- QUALITY OF STUDY/CONTRAST BOLUS: Satisfactory. PULMONARY ARTERIES: Pulmonary arteries are normal in size. No embolic filling defects are identified within the main, lobar or segmental vessels. Some of the peripheral vessels are suboptimally evaluated in the lingula and left lower lobe due to image blurring from cardiac or respiratory motion. An area of decreased attenuation in the lateral segment branch of the left lower lobe appears to represent artifact (sagittal reformatted image 36 of 117; axial image 240 of 478). THORACIC AORTA: Atherosclerotic calcification of thoracic aorta without aneurysm or dissection. Aortic valve is replaced. LUNGS AND PLEURA: Moderate centrilobular emphysema. No acute pulmonary consolidation, edema, pneumothorax or pleural effusion. Within the medial aspect of the apicoposterior segment left upper lobe, there is an elongated tubular, nodular lesion consistent with neoplastic disease; it measures up to 1.9 cm AP diameter compared to 0.8 cm on 04/26/2017 and extends over craniocaudal distance of approximately 6 cm. It encases some of the upper lobe arteries and extends along a bronchus to the hilum where there is associated hilar lymphadenopathy. CARDIOVASCULAR: The heart size is normal. There is extensive atherosclerotic calcification of coronary arteries. The left ventricular wall is hypertrophied. No pericardial effusion. MEDIASTINUM: The esophagus has normal wall thickness. Again noted is a multinodular thyroid gland. LYMPHATICS: No pathologic sized axillary or internal mammary lymph nodes. Largest lymph node of the superior left hilum measures 2.1 cm AP. There is soft tissue thickening around the left mainstem bronchus. A prominent precarinal lymph node is 1.6 cm AP (compared to a size of 1.1 cm on 04/26/2017). A prominent lymph node at the level of the aortopulmonary window is 1 cm short axis dimension (image 155, series 2). THORACIC OSSEOUS STRUCTURES: The sternotomy is healed. No aggressive osseous lesions within the thorax. ABDOMEN AND PELVIS - HEPATOBILIARY: Liver has normal size, contour and attenuation. Gallbladder is unremarkable. Common bile duct exhibits stable enlargement (measures approximately 1 cm diameter). There is mild dilatation of central intrahepatic bile ducts. No evidence of hepatic metastasis. PANCREAS: Unremarkable. SPLEEN: Unremarkable. ADRENAL GLANDS: Unremarkable. KIDNEYS, URETERS, BLADDER: No acute findings. Again noted are the hyperdense renal cortical cysts. There are renal vascular calcifications. No nephrolithiasis, hydronephrosis or perinephric edema. The urinary bladder is unremarkable. GI TRACT AND PERITONEUM: Loops of bowel are normal in caliber. Appendix is normal. No evidence of acute inflammation or obstruction along the gastrointestinal tract. ABDOMINAL WALL: Unremarkable. VASCULAR: There is extensive atherosclerotic calcification of the aorta and branch vessels, including renal arteries, with bilateral renal artery stenosis. The proximal abdominal aorta at the level of the celiac trunk measures 3.5 cm transverse and 3 cm AP. The infrarenal abdominal aorta measures up to a maximum of 2.9 cm AP and 2.6 cm transverse. The common iliac arteries are ectatic. LYMPH NODES: No pathologic sized lymph nodes in the abdomen or pelvis. No inguinal lymphadenopathy. PELVIC VISCERA: There are calcified subserosal leiomyomas of the posterior uterus. No adnexal mass. No pelvic free fluid. OSSEOUS STRUCTURES: Facet arthropathy of L4-L5 and L5-S1. Osteoarthritis of the right sacroiliac joint. No suspicious bone lesions. IMPRESSION: 1. No evidence of pulmonary embolism. 2. 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 The infiltrative mass of the left upper lobe has significantly increased in size compared to 04/26/2017. It extends to level of the left hilum. There is left hilar and mediastinal lymphadenopathy. 3. Moderate pulmonary emphysema. 4. Atherosclerotic disease of coronary arteries. There is wall hypertrophy of the left ventricle. No acute pulmonary edema or pleural effusion. 5. No evidence of metastatic disease within the abdomen or pelvis. 6. There is stable dilatation of the common bile duct. No acute findings in the abdomen or pelvis compared to 06/05/2017. 7. Severe atherosclerotic disease of peripheral vessels. There is stable aneurysmal dilatation of the proximal abdominal aorta.
--- NOTE | 2017-09-08 01:16 | History & Physical ---
Luis Armando VALDOVINOS,[facility] 09/08/17 0115: General Information and HPI MD Statement: I have seen and personally examined JUNIOR ASENCIO and documented this H&P. The patient is a 67 year old F who presented with a patient stated chief complaint of [epigastric/abd pain, dizzyness, weakness, decreased energy]. Source of Information: patient History of Present Illness: 67-year-old female with a past medical history of seizure, CAD, hypertension, hyperlipidemia, diastolic CHF, prosthetic aortic valve, COPD on 3 L, chronic back pain, anxiety, depression, diabetes, presenting for complaints of epigastric abdominal pain radiating to her back. The patient recently had a carotid endarterectomy on Sunday. She states that she went home Sunday. She then started taking oxycodone on . She started feeling nauseous. She states that the oxycodone did not help her abdominal pain. She has also noted was appetite which is new for her. She states that she ate a little bit on . She states that she thought her pain might of been due to constipation however she did have a bowel movement this evening. She is unsure whether food makes her pain worsen as she has not been eating. She states that she has had dizziness, weakness, and decreased energy. She also complains of being numb all over. She states that the numbness mostly affected her upper extremities well progressed to her lower extremities. Of note, the patient has left upper lobe carcinoma which is being followed by Dr. Gann. She was given nitroglycerin in the emergency department which she states helped her a little bit. She was given nitroglycerin sublingual twice. She was also given low-dose aspirin. She was given 1 g nitroglycerin paste. She was also given 0.5 mg Xanax, 2 mg morphine for pain/anxiety. She is a 29-[id number]-pslu smoker and was smoking 1 pack per day until her CEA on Sunday. She continues to smoke 2 cigarettes per day. She uses marijuana for insomnia. Allergies/Medications Allergies: Coded Allergies: SHANI Inhibitors (Severe, ANGIODEMA 05/17/16) Penicillins (Severe, ANGIODEMA 05/17/16) shellfish derived (UNKNOWN PER PT EATS SHRIMP FINE 05/17/16) aspirin (BODY BREAKS OUT IN SWEATS, GI UPSET 02/22/17) Home Med list Albuterol Sulfate (Ventolin Hfa) 90 MCG HFA.AER.AD 2 PUF INH Q4-6 PRN PRN breath (Reported) Alprazolam 0.5 MG TABLET 1 TAB PO DAILY NEEDED PRN ANXIETY (Reported) Amlodipine Besylate 5 MG TABLET 1 TAB PO DAILY HEART (Reported) Atorvastatin Calcium (Lipitor) 40 MG TABLET 1 TAB PO QPM CHOLESTEROL ( Reported) Carvedilol (Coreg) 25 MG TABLET 1 TAB PO BID HEART (Reported) Fluticasone/Vilanterol (Breo Ellipta 100-25 Mcg INH) 100 MCG-25 MCG/DOSE BLST.W.DEV 1 PUFF INH DAILY RESPIRATORY (Reported) Furosemide (Lasix) 40 MG TABLET 40 MG PO DAILY CHF Gabapentin (Neurontin) 300 MG CAPSULE 1 CAP PO TID NEUROPATHY (Reported) Omeprazole 40 MG CAPSULE.DR 1 CAP PO DAILY GI (Reported) Oxycodone HCl/Acetaminophen (Percocet 5-325 MG Tablet) 5 MG-325 MG TABLET 1-2 TAB PO Q4-6 PRN PRN PAIN SCALE 4-6 (MODERATE) Phenytoin Sodium Extended 100 MG CAPSULE 2 CAP PO BID sizure (Reported) Valsartan (Diovan) 40 MG TABLET 1 TAB PO BID HEART Zolpidem Tartrate 5 MG TABLET 1 TAB PO QPMP PRN SLEEP (Reported) Past History Travel History Traveled to [place] past 21 day No Medical History Neurological: seizure EENT: NONE Cardiovascular: CAD, hypertension, hyperlipidemia, DIASTOLIC CHF SUPRA AORTIC VALVULAR MEMBRANE Respiratory: COPD, emphysema, O2 DEP 3L Gastrointestinal: GERD Hepatic: NONE Renal: NONE Musculoskeletal: chronic back pain, disk herniation Psychiatric: anxiety, depression Endocrine: diabetes, HYPOGLYCEMIC EVENTS POSSIBLE DIET CONTROLLED Blood Disorders: NONE Cancer(s): NONE 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 FATHER (CVA). Psychosocial History Who Do You Live With? sister Services at Home: Nursing, Oxygen, Physical Therapy, Social Work Primary Language: Polish ETOH Use: denies use Illicit Drug Use: marijuana Functional Ability ADLs Independent: dressing, eating, toileting, bathing. Ambulation: walker IADLs Needs Assist: shopping, housework, finances, food prep, telephone, transportation, medication admin. Review of Systems Review of Systems Constitutional: Reports: see HPI (fatigue), malaise, weakness. Cardiovascular: Denies: chest pain. Respiratory: Denies: cough, short of breath. GI: Reports: abdominal pain. Genitourinary: Reports: no symptoms. Musculoskeletal: Reports: see HPI (baseline weakness. uses walker). Neurological/Psychological: Reports: weakness, other (dizzyness,). Exam & Diagnostic Data Last 24 Hrs of Vital Signs/I&O Vital Signs Date Time Temp Pulse Resp B/P B/P Pulse O2 O2 Flow FiO2 Mean Ox Delivery Rate 09/08 0229 99.2 88 22 156/86 91 Nasal 3.0L Cannula 09/08 0215 91 Nasal 3.0L Cannula 09/08 0128 98.5 78 18 190/100 95 Nasal Cannula 09/08 0127 98.5 82 18 206/97 95 Nasal 3.0L Cannula 09/08 0126 98.5 82 18 206/97 09/07 2320 94 Nasal 3.0L Cannula 09/07 2204 98.7 99 19 170/95 96 Nasal Cannula 09/07 1920 Nasal 2.0L Cannula 09/07 1917 98.9 75 19 185/85 94 Nasal 2.0L Cannula Intake & Output 09/08 0800 09/08 0000 09/07 1600 Intake Total Output Total Balance Patient 202 lb 199 lb Weight Weight Bed scale Standing Scale Measurement Method Physical Exam General Appearance Alert, Oriented X3, Cooperative, anxious Cardiovascular diastolic murmur Lungs Clear to Auscultation Abdomen Normal Bowel Sounds, Soft, No Tenderness Neurological unable to elicit babinkski or patellar reflexes Extremities arthritis of L knee > R Vascular unable to palpate R pedal pulse. cap refill <2 seconds. 2+ radial and L pedal pulse Last 24 Hrs of Labs/Marcin: Laboratory Tests 09/08/17 0018: Troponin I 0.05 09/07/17 2331: Troponin I Cancelled 09/07/171934: PT Cancelled, INR Cancelled, APTT Cancelled 09/07/171934: Anion Gap 5, Estimated GFR 45 L, BUN/Creatinine Ratio 15.8, Glucose 104 H, Calcium 8.7, Total Bilirubin 0.2, Direct Bilirubin 0.2, AST 28, ALT 30, Alkaline Phosphatase 98, Troponin I 0.05, Total Protein 6.8, Albumin 3.4 L, Amylase 68, Lipase 203, PT 10.4, INR 0.95, APTT 31, D-Dimer High Sensitivty 376 H, CBC w Diff NO MAN DIFF REQ, RBC 3.53 L, MCV 82.0, MCH 27.5, MCHC 33.6, RDW 14.9 H, MPV 7.7, Gran % 64.9, Lymphocytes % 21.3, Monocytes % 11.3 H, Eosinophils % 2.1 , Basophils % 0.4, Absolute Granulocytes 4.0, Absolute Lymphocytes 1.3, Absolute Monocytes 0.7 H, Absolute Eosinophils 0.1, Absolute Basophils 0 Assessment/Plan Assessment: 67-year-old female with a past medical history of seizure, CAD, hypertension, hyperlipidemia, diastolic CHF, prosthetic aortic valve, COPD on 3 L, chronic back pain, anxiety, depression, diabetes, presenting for complaints of epigastric abdominal pain radiating to her back in the setting of recent CEA Problem list: -Chest pain r/o ACS. Possible differentials include AAA, acute mesenteric ischemia, pancreaititis, cholecytitis/gallstones/biliary sludge, anxiety. * CTA chest and ct abd pelvis with IV contrast reveal no PE. There is stable dilatation of the common bile duct and stable aneurysmal dilatation of the proximal abdominal aorta. * amylase and lipase negative thus far -Left upper lobe chest mass -chronic medical problems as listed above Plan: R/o ACS with trops EKG x3. trop 0.05x1. Cardiology consult. Echo per cardio if they want F/u outpatient for lung carcinoma Anemia and CKD stable Cont home meds #FULL CODE #DVT prophylaxis sc HEPARIN As Ranked By This Provider Problem List: 1. Abdominal pain Core Measures/Misc (12/10) Acute Coronary Syndrome ACS Diagnosis: No Congestive Heart Failure Congestive Heart Failure Diagnosis No Cerebrovascular Accident CVA/TIA Diagnosis: No VTE (View Protocol) VTE Risk Factors Acute Medical Illness No Mechanical VTE Prophylaxis d/t Other No VTE Pharm Prophylaxis d/t NA PharmProphylax ordered Sepsis (View protocol) Sepsis Present: No If YES complete Sepsis Event Note If YES complete Sepsis Event Note Kevin VALDOVINOS,Nora 09/08/17 0144: Core Measures/Misc (9/17) Sepsis (View protocol) If YES complete Sepsis Event Note If YES complete Sepsis Event Note Resident Review Statement Resident Statement: examined this patient, discussed with purchasing intern, agreed with purchasing intern, discussed with family, reviewed EMR data (avail), discussed with nursing , discussed with case mgmt, reviewed images, amended to note Other Findings: Patient is a 67-year-old female with past medical history significant for hypertension, hyperlipidemia, seizures, gastric construct failure, COPD on 3 L oxygen, GERD, depression, ? Diabetic not on medications, Bioprosthetic AVR presented to [place] after experiencing significant bloating epigastric discomfort and nausea for the past few days after undergoing carotid endarterectomy on 09/04/2017. She reports occasional chills, shaking without any fevers. She did report productive cough but at her baseline. She reports taking only was done 80 mg after her surgery and discontinued all the rest of medications. She took all her home medications today prior to her arrival. Vital signs at the time of presentation are significant for blood pressure of 185/85 mmHg. Physical examination did show a diastolic murmur with clear lungs. No wheezing present. No edema. Labs did show normocytic anemia with H&H 9.7/ 28.9, platelet count 158, d-dimer 376, PT 10.4, INR 0.95, bicarbonate 34, BUN/ creatinine 19/1.2. Amylase is 68, lipase 203. CT angio ruled out acute aortic dissection given pain radiating to back. Did report worsening of her left upper lobe carcinoma from 0.8 cm to 1.9 cm.. Moderate pulmonary emphysema. EKG shows normal sinus rhythm with left bundle branch block and repolarization changes. New ST depressions in 1, aVL Atypical presentation for chest pain with significant EKG changes with new ST depression in I, aVL. Problem list 1. Atypical chest pain 2. COPD on 3 L of oxygen 3. Lung mass - 1.[address], high likely malignancy 4. Depression 5. Hyperlipidemia 6. GERD 7. Seizures Plan Admit to telemetry floor Epigastric discomfort with bloating -- atypical presentation for ACS Patient had a history of diabetes but not been any medications recently. She did have peripheral vascular disease with recent carotid endarterectomy. Sometimes it could precipitate it. She had a history of diastolic congestive heart failure. EKG changes are significant for new ST depressions in 1, aVL. * Serial EKGs and troponins * A single dose of 325 mg aspirin given, continue 81 mg aspirin daily * Continue atorvastatin 80 mg, Coreg 25 mg twice a day * Echo per cardiology * Cardiology consult for further evaluation and recommendations Lung mass - 1.[address], high likely malignancy Increase in size from 0.8cm to 1.9cm. Patient denies any information about her mass. Still actively smokes (1 pack per day past 40yrs, 2 cigars per day after the procedure). * Needs outpatient follow up * If decompensates need to consider progression COPD on 3 L oxygen Appears stable. Continue TRC/Nebs. Mental health Continue xanax as needed Seizures Continue phenytoin 200mg bid DVT prophylaxis SC heparin code status Full code Sudhir Wilks 09/08/17 0552: Core Measures/Misc (12/10) Sepsis (View protocol) If YES complete Sepsis Event Note If YES complete Sepsis Event Note Attending MD Review Statement Attending Statement Attending MD Statement: examined this patient, discuss w/resident/PA/TORTS LAW PROFESSOR, agreed w/resident/PA/TORTS LAW PROFESSOR, reviewed EMR data (avail), reviewed images, amended to note Attending Assessment/Plan: CC: Chest tightness PMH: COPD on 3 L nasal cannula, HTN, HLD, HFpEF , aortic stenosis S/P bioprosthetic aortic valve, DM not on medications, chronic pain, seizure disorder, anxiety and depression Patient underwent right carotid endarterectomy on September 04 and was discharged on September 06 after discharge patient was apparently all right for 1 day and restarted all her medications yesterday. But she was feeling very weak and lethargic. Today she noticed central chest pressure, nonradiating, not associated with palpitation occurred at rest so she came to ER. Her pain was a little bit better after nitroglycerin in ER. Patient is poor historian. Vitals: Temperature 98.9, pulse 75, RR 19, blood pressure 195 at 85, saturating 94% on 3 L nasal cannula On exam: A O 3, cooperative, no acute distress, obese, neck supple, JVD normal, no lymphadenopathy, scar of the right CEA surgery, mucosa moist, no focal neurological deficit, no dependent edema, no obvious skin rashes or inflammation CVS: S1-S2, RRR. RS: Clear to auscultate bilaterally. Abdomen: Soft, NT, ND, bowel sounds present. CTA chest, CT abdomen pelvis with IV contrast: 1. No evidence of pulmonary embolism. 2. 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 The infiltrative mass of the left upper lobe has significantly increased in size compared to 04/26/2017. It extends to level of the left hilum. There is left hilar and mediastinal lymphadenopathy. 3. Moderate pulmonary emphysema. 4. Atherosclerotic disease of coronary arteries. There is wall hypertrophy of the left ventricle. No acute pulmonary edema or pleural effusion. 5. No evidence of metastatic disease within the abdomen or pelvis. 6. There is stable dilatation of the common bile duct. No acute findings in the abdomen or pelvis compared to 06/05/2017. 7. Severe atherosclerotic disease of peripheral vessels. There is stable aneurysmal dilatation of the proximal abdominal aorta. Assessment and plan 67-year-old female with extensive past medical history and current smoker presented in ER for chest tightness that occurred at rest, relieved after nitroglycerin in ER. According to her symptoms this pain appears atypical but given that she has peripheral vascular disease, extensive smoking history acute coronary syndrome should be ruled out. Patient has negative troponin but more pronounced T-wave inversions on lateral lead and 1 and aVL. Pulmonary embolism was ruled out by CTA chest. If the CT scan there is mention of interval worsening of left upper lobe lesion from 0.8 cm in April to 1.9 cm. When discussed with patient she is unaware if she had cancer. She states that there was a spot on her lung that was being followed up but does not recall what happened exactly. The patient's family is not bedside to discuss his findings. She wants us to discuss this with her son who could remember better. + Chest pain rule out ACS + Suspected lung cancer + Recent right CEA + COPD on 3 L nasal cannula, HTN, HLD, HFpEF , aortic stenosis S/P bioprosthetic aortic valve, DM not on medications, chronic pain, seizure disorder, anxiety and depression - Admit to telemetry - Continuous telemetry monitoring - Serial troponin and EKGs - 2-D echo in a.m. - Cardiology consult in a.m. - Continue aspirin, statin, beta audrey - Heparin drip if significant rise in troponin, recurrence of chest pain with ECG changes - Need to discuss CT scan findings with patient's son tomorrow morning : Need outpatient follow-up - Continue all her home medications
[2017-09-08 02:29] VITALS: BP 156/86
--- NOTE | 2017-09-08 05:54 | Admission Certification ---
Admission Certification Certification Statement - As attending physician, I certify that at the time of - admission, based on clinical presentation, severity of - symptoms, need for further diagnostic testing and - therapeutic interventions, and risk of adverse outcomes - without in-hospital treatment, in my clinical assessment, - this patient requires an acute hospital stay for a minimum - of two nights or longer. I have also considered psychsocial - factors such as support system, advanced age, financial - issues, cognitive issues, and failed out-patient treatments, - past re-admission history, safety of patient, and lack of - compliance as applicable. Specific rationale supporting this admission is: Chest pain with ECG changes rule out ACS; suspected lung cancer
[2017-09-08 06:48] VITALS: BP 144/92
[2017-09-08 08:15] LABS: ABSOLUTE BASOPHIL COUNT 0 /CUMM (0.0-0.2); ABSOLUTE EOSINOPHIL COUNT 0.1 /CUMM (0.0-0.7); ABSOLUTE GRANULOCYTE CT 3.6 /CUMM (1.4-6.5); ABSOLUTE LYMPH COUNT 1.1 /CUMM (1.2-3.4); ABSOLUTE MONOCYTE COUNT 0.7 /CUMM (0.10-0.60); BASOPHIL % 0.3 % (0.0-2.0); EOSINOPHIL % 2.2 % (0-5); GRANULOCYTE % 65.2 % (42.2-75.2); HEMATOCRIT 28.6 % (37-47); MEAN CORPUSCULAR HGB 27.3 PG (27.0-31.0); MEAN CORPUSCULAR HGB CONC 33.4 G/DL (33.0-37.0); MEAN CORPUSCULAR VOLUME 81.6 FL (81.0-99.0); MEAN PLATELET VOLUME 7.8 FL (7.4-10.4); PLATELET COUNT 155 /CUMM (130-400); WHITE BLOOD CELL COUNT 5.5 /CUMM (4.8-10.8)
--- NOTE | 2017-09-08 09:22 | PN- Housestaff ---
See Addendum Subjective Follow-up For: Atypical chest pain, lung mass, tightness Tele-Events Since Last Visit: Sinus rhythm, [address] Subjective: No overnight events. The patient complains of having a tightness like her skin is too tight over her whole body. She says she has pain that starts in her feet and goes to her chest and hands. She also has some numbness associated with this. She has had the symptoms for a while. She also complains of fatigue that progresses throughout the day but no shortness of breath. She says she has tried to explain her issues for a while but feels like she is not being heard. Review of Systems Constitutional: Reports: no symptoms. EENTM: Reports: no symptoms. Cardiovascular: Reports: see HPI. Respiratory: Reports: no symptoms. Gastrointestinal: Reports: no symptoms. Genitourinary: Reports: no symptoms. Musculoskeletal: Reports: no symptoms. Skin: Reports: see HPI. Neurological/Psychological: Reports: see HPI. Hematologic/Endocrine: Reports: no symptoms. Immunologic/Allergic: Reports: no symptoms. Objective Last 24 Hrs of Vital Signs/I&O Vital Signs Date Time Temp Pulse Resp B/P B/P Pulse O2 O2 Flow FiO2 Mean Ox Delivery Rate 09/08 0648 98.2 73 20 144/92 92 Nasal Cannula 09/08 0229 99.2 88 22 156/86 91 Nasal 3.0L Cannula 09/08 0215 91 Nasal 3.0L Cannula 09/08 0128 98.5 78 18 190/100 95 Nasal Cannula 09/08 0127 98.5 82 18 206/97 95 Nasal 3.0L Cannula 09/08 0126 98.5 82 18 206/97 09/07 2320 94 Nasal 3.0L Cannula 09/07 2204 98.7 99 19 170/95 96 Nasal Cannula 09/07 1920 Nasal 2.0L Cannula 09/07 1917 98.9 75 19 185/85 94 Nasal 2.0L Cannula Intake & Output 09/08 1600 09/08 0800 09/08 0000 Intake Total 480 Output Total 400 Balance 80 Intake, Oral 480 Number 0 Bowel Movements Output, Urine 400 Patient 90.718 kg 90.265 kg Weight Weight Bed scale Standing Scale Measurement Method Physical Exam General Appearance: Alert, Oriented X3, Cooperative, No Acute Distress Skin: No Rashes, No Breakdown, No Significant Lesion HEENT: Right neck wound clean and dry Cardiovascular: Regular Rate, Normal S1, Normal S2 Lungs: rhonci Abdomen: Normal Bowel Sounds, Soft, No Tenderness Extremities: No Edema, Normal Pulses, No Tenderness/Swelling Current Medications: Current Medications Sig/Robyn Start time Last Medication Dose Route Stop Time Status Admin Acetaminophen 650 MG Q6P PRN 09/08 114 AC PO Acetaminophen 1,000 MG Q6P PRN 09/08 011 AC IV Acetaminophen 650 MG ONCE ONE 09/07 1944 DC 09/07 PO 09/07 Acetaminophen 0 .STK-MED ONE 09/08 1943 DC PO Albuterol Sulfate 3 ML ONCE ONE 09/07 2229 DC 09/07 INH 09/07 2230 225 Alprazolam 0.5 MG DAILY NEEDED PRN 09/08 114 AC PO 09/15 011 Alprazolam 0.5 MG ONCE ONE 09/08 001 DC 09/08 PO 09/08 0016 0020 Alprazolam 0 .STK-MED ONE 09/09 11 DC PO Amlodipine Besylate 5 MG DAILY 09/08 899 AC PO Aspirin 81 MG DAILY 09/08 09 AC PO Aspirin 325 MG ONCE ONE 09/07 2300 DC 09/07 PO 09/07 2301 2302 Aspirin 0 .STK-MED ONE 09/07 2258 DC PO Atorvastatin Calcium 40 MG QPM 09/08 2100 AC PO Carvedilol 25 MG BID 09/08 0102 AC 09/08 PO 0126 Furosemide 40 MG DAILY 09/08 09 AC PO Gabapentin 0 .STK-MED ONE 09/08 109 DC PO Gabapentin 300 MG TID 09/08 0103 AC 09/08 PO 0121 Heparin Sodium 5,000 UNIT Q8 09/08 06 AC 09/08 (Porcine) SC 0625 Ipratropium [place] 2.5 ML ONCE ONE 09/07 2229 DC 09/07 INH 09/07 223 2251 Losartan Potassium 50 MG DAILY 09/08 899 AC PO Morphine Sulfate 2 MG ONCE ONE 09/08 0015 DC 09/08 IV 09/08 0016 0020 Morphine Sulfate 0 .STK-MED ONE 09/08 001 DC .ROUTE Multivitamins 1 TAB DAILY 09/08 899 AC PO Nitroglycerin 0.5 GM Q6P PRN 09/08 114 AC TOP Nitroglycerin 1 GM ONCE ONE 09/07 2299 [place] 09/07 [facility] 09/07 Nitroglycerin 0 .STK-MED ONE 09/07 2258 [facility] Nitroglycerin 0.4 MG ONCE ONE 09/07 1944 [place] 09/07 09/07 Nitroglycerin 0.4 MG ONCE ONE 09/07 1944 [place] 09/07 09/07 Nitroglycerin 0 .STK-MED ONE 09/07 1938 [facility] Omeprazole 40 MG DAILY AC 09/08 0700 AC 09/08 PO 0622 Ondansetron HCl 4 MG ONCE ONE 09/08 0830 TX 09/08 IV 09/08 0831 0833 Oxycodone/ 1 TAB Q6P PRN 09/08 0115 AC 09/08 Acetaminophen PO 0248 Phenytoin 200 MG BID 09/08 0900 PO Sodium Chloride 2 SPRAY Q4P PRN 09/08 0245 AC ROBERT Last 24 Hrs of Lab/Marcin Results Last 24 Hrs of Labs/Mics: Laboratory Tests 09/08/1721: Troponin I Cancelled 09/08/1717: Anion Gap 5, Estimated GFR 35 L, BUN/Creatinine Ratio 13.3, Troponin I 0.05, Triglycerides 169 H, Cholesterol 178, LDL Cholesterol, Calc 97, HDL Cholesterol 48, Cholesterol/HDL Ratio 4, CBC w Diff NO MAN DIFF REQ, RBC 3.50 L, MCV 81.6, MCH 27.3, MCHC 33.4, RDW 15.0 H, MPV 7.8, Gran % 65.2, Lymphocytes % 19.9 L, Monocytes % 12.4 H, Eosinophils % 2.2, Basophils % 0.3, Absolute Granulocytes 3.6, Absolute Lymphocytes 1.1 L, Absolute Monocytes 0.7 H, Absolute Eosinophils 0.1, Absolute Basophils 0 09/08/17 0018: Troponin I 0.05 09/07/17 2331: Troponin I Cancelled 09/07/171934: PT Cancelled, INR Cancelled, APTT Cancelled 09/07/171934: Anion Gap 5, Estimated GFR 45 L, BUN/Creatinine Ratio 15.8, Glucose 104 H, Calcium 8.7, Total Bilirubin 0.2, Direct Bilirubin 0.2, AST 28, ALT 30, Alkaline Phosphatase 98, Troponin I 0.05, Total Protein 6.8, Albumin 3.4 L, Amylase 68, Lipase 203, PT 10.4, INR 0.95, APTT 31, D-Dimer High Sensitivty 376 H, CBC w Diff NO MAN DIFF REQ, RBC 3.53 L, MCV 82.0, MCH 27.5, MCHC 33.6, RDW 14.9 H, MPV 7.7, Gran % 64.9, Lymphocytes % 21.3, Monocytes % 11.3 H, Eosinophils % 2.1 , Basophils % 0.4, Absolute Granulocytes 4.0, Absolute Lymphocytes 1.3, Absolute Monocytes 0.7 H, Absolute Eosinophils 0.1, Absolute Basophils 0 Assessment/Plan Assessment: Ms. Vickers is a 67-year-old female with extensive past medical history and current smoker presented in ER for chest tightness that occurred at rest. Problem list: 1. Atypical chest pain 2. Tubular 1.9 cm lung mass 3. Skin tightness/fatigue #Atypical chest pain: Patient was admitted for chest tightness concerning for ACS. Her troponins have been negative. She still having the chest pain but it does not seem cardiac in nature. -Cardiology consult -Echocardiogram #Tubular 1.9 cm lung mass: CT imaging revealed a 1.9 cm elongated tubular nodular lesion concerning for neoplastic disease. The patient is a current smoker. It is odd because CT imaging 1 month ago showed that the mass was only 0.9 cm, so it has more than doubled in about a month. -Pulmonology consult -Likely will need outpatient PET scan #Skin tightness/fatigue: Etiology of her skin tightness and fatigue is unclear. It is possible that she has a paraneoplastic process going on though symptoms have been going on for a long time. -Consider increasing gabapentin -Consider checking Anti-Hu, Anti-CV2/CRMP5, Anti-ELEVATOR REPAIRER HELPER-2, anti-AChR -Consider rheumatological/neurological workup #Chronic medical problems: -Continue other home medications DVT prophylaxis with heparin Heart healthy diet Full code Problem List: 1. Chest pain, unspecified Pain Ratin Pain Location: no Pain Goal: Remain pain free Pain Plan: see a/p Tomorrow's Labs & Rationales: cbc
--- NOTE | 2017-09-08 11:45 | Cons- Cardiology ---
See Addendum General Information and HPI Consulting Request Date of Consult: 09/08/17 Requested By: Sudhir Wilks MD Reason for Consult: Chest pain Source of Information: patient, old records Exam Limitations: poor historian History of Present Illness: This is a 67-year-old female with a past medical history of bioprosthetic aortic valve in 2016 with nonobstructive coronary artery disease, hypertension, carotid artery stenosis status post recent CEA, oxygen dependent COPD, chronic back pain , anxiety, mild aortic dilatation, heart failure with preserved ejection fraction, and seizure disorder who presents to [facility] with a chief complaint of pain in her abdomen, chest, back, and legs. The patient is a somewhat limited/tangential historian and has difficulty clearly describing her symptoms. She denied associated palpitations or diaphoresis but did report some nausea and feeling bloated. Denies increased lower extremity edema, orthopnea, or paroxysmal nocturnal dyspnea. There appears to be some reproducibility to her pain. She denies slurring of speech, visual changes, or syncope. Patient had recently transferred her cardiac care to my office. She did undergo preoperative cardiac risk assessment in our office prior to her recent CEA. Allergies/Medications Allergies: Coded Allergies: SHANI Inhibitors (Severe, ANGIODEMA 05/17/16) Penicillins (Severe, ANGIODEMA 05/17/16) shellfish derived (UNKNOWN PER PT EATS SHRIMP FINE 05/17/16) aspirin (BODY BREAKS OUT IN SWEATS, GI UPSET 05/17/16) Home Med List: Albuterol Sulfate (Ventolin Hfa) 90 MCG HFA.AER.AD 2 PUF INH Q4-6 PRN PRN breath (Reported) Alprazolam 0.5 MG TABLET 1 TAB PO DAILY NEEDED PRN ANXIETY (Reported) Amlodipine Besylate 5 MG TABLET 1 TAB PO DAILY HEART (Reported) Atorvastatin Calcium (Lipitor) 40 MG TABLET 1 TAB PO QPM CHOLESTEROL ( Reported) Carvedilol (Coreg) 25 MG TABLET 1 TAB PO BID HEART (Reported) Fluticasone/Vilanterol (Breo Ellipta 100-25 Mcg INH) 100 MCG-25 MCG/DOSE BLST.W.DEV 1 PUFF INH DAILY RESPIRATORY (Reported) Furosemide (Lasix) 40 MG TABLET 40 MG PO DAILY CHF Gabapentin (Neurontin) 300 MG CAPSULE 1 CAP PO TID NEUROPATHY (Reported) Omeprazole 40 MG CAPSULE. 1 CAP PO DAILY GI (Reported) Oxycodone HCl/Acetaminophen (Percocet 5-325 MG Tablet) 5 MG-325 MG TABLET 1-2 TAB PO Q4-6 PRN PRN PAIN SCALE 4-6 (MODERATE) Phenytoin Sodium Extended 100 MG CAPSULE 2 CAP PO BID sizure (Reported) Valsartan (Diovan) 40 MG TABLET 1 TAB PO BID HEART Zolpidem Tartrate 5 MG TABLET 1 TAB PO QPMP PRN SLEEP (Reported) Current Medications: Current Medications Sig/Robyn Start time Last Medication Dose Route Stop Time Status Admin Acetaminophen 650 MG Q6P PRN 09/08 011 AC PO Acetaminophen 1,000 MG Q6P PRN 09/08 0115 AC IV Acetaminophen 650 MG ONCE ONE 09/07 1944 DC 09/07 PO 09/07 1945 194 Acetaminophen 0 .STK-MED ONE 09/08 1943 DC PO Albuterol Sulfate 3 ML BID 09/08 2100 AC 09/08 INH 1106 Albuterol Sulfate 3 ML ONCE ONE 09/07 2229 DC 09/07 INH 09/07 2230 225 Alprazolam 0.5 MG DAILY NEEDED PRN 09/08 011 AC PO 09/15 0114 Alprazolam 0.5 MG ONCE ONE 09/085 DC 09/08 PO 09/08 0016 0020 Alprazolam 0 .STK-MED ONE 09/08 001 DC PO Amlodipine Besylate 5 MG DAILY 09/08 0900 AC PO Aspirin 81 MG DAILY 09/08 09 AC PO Aspirin 325 MG ONCE ONE 09/07 2300 DC 09/07 PO 09/07 2300 230 Aspirin 0 .STK-MED ONE 09/07 2258 DC PO Atorvastatin Calcium 40 MG QPM 09/08 2100 AC PO Carvedilol 25 MG BID 09/08 101 AC 09/08 PO 0126 Furosemide 40 MG DAILY 09/08 0900 AC PO Gabapentin 0 .STK-MED ONE 09/08 109 DC PO Gabapentin 300 MG TID 09/08 010 AC 09/08 PO 0121 Heparin Sodium 5,000 UNIT Q8 09/08 0600 AC 09/08 (Porcine) SC 0625 Ipratropium [place] 2.5 ML ONCE ONE 09/07 2229 DC 09/07 INH 09/07 2230 2250 Losartan Potassium 50 MG DAILY 09/08 899 AC PO Morphine Sulfate 2 MG ONCE ONE 09/08 0015 DC 09/08 IV 09/08 0016 0020 Morphine Sulfate 0 .STK-MED ONE 09/08 0011 DC .ROUTE Multivitamins 1 TAB DAILY 09/08 899 AC PO Nitroglycerin 0.5 GM Q6P PRN 09/08 0115 AC TOP Nitroglycerin 1 GM ONCE ONE 09/07 2300 DC 09/07 TOP 09/07 2301 230 Nitroglycerin 0 .STK-MED ONE 09/07 2259 DC TOP Nitroglycerin 0.4 MG ONCE ONE 09/07 194 DC 09/07 SL 09/07 Nitroglycerin 0.4 MG ONCE ONE 09/07 194 DC 09/07 SL 09/07 Nitroglycerin 0 .STK-MED ONE 09/07 1939 DC SL Omeprazole 40 MG DAILY AC 09/08 0700 AC 09/08 PO 0622 Ondansetron HCl 4 MG ONCE ONE 09/08 0830 DC 09/08 IV 09/08 0831 0833 Oxycodone/ 1 TAB Q6P PRN 09/08 0115 AC 09/08 Acetaminophen PO 0248 Phenytoin 200 MG BID 09/08 09 AC PO Sodium Chloride 2 SPRAY Q4P PRN 09/08 0245 AC ROBERT Review of Systems Review of Systems: Review of systems as per HPI. The remainder of a 10 point review of systems was reviewed and was otherwise negative. Past History Travel History Traveled to [place] past 21 day No Medical History Blood Transfusion Hx: No Neurological: seizure EENT: NONE Cardiovascular: CAD, hypertension, hyperlipidemia, DIASTOLIC CHF SUPRA AORTIC VALVULAR MEMBRANE Respiratory: COPD, emphysema, O2 DEP 3L Gastrointestinal: GERD Hepatic: NONE Renal: NONE Musculoskeletal: chronic back pain, disk herniation Psychiatric: anxiety, depression Endocrine: diabetes, HYPOGLYCEMIC EVENTS POSSIBLE DIET CONTROLLED Blood Disorders: NONE Cancer(s): NONE WARP CLAMPER/Reproductive: NONE Other Medical Hx: Her COPD has required home oxygen Surgical History Surgical History: HEMORRHOIDS REMOVED aortic valve replacement Family History Relations & Conditions If Any: SON (HTN). FATHER (CVA). Psychosocial History Where Do You Live? Home Who Do You Live With? sister Services at Home: Nursing, Oxygen, Physical Therapy, Social Work Primary Language: Hungarian Smoking Status: Current Everyday Smoker ETOH Use: denies use Illicit Drug Use: marijuana Functional Ability ADLs Independent: dressing, eating, toileting, bathing. Ambulation: walker IADLs Needs Assist: shopping, housework, finances, food prep, telephone, transportation, medication admin. Exam & Diagnostic Data Vital Signs and I&O Vital Signs Date Time Temp Pulse Resp B/P B/P Pulse O2 O2 Flow FiO2 Mean Ox Delivery Rate 09/08 1111 Nasal 3.0L Cannula 09/08 1108 93 Nasal 3.0L Cannula 09/08 0648 98.2 73 20 144/92 92 Nasal Cannula 09/08 0229 99.2 88 22 156/86 91 Nasal 3.0L Cannula 09/08 0215 91 Nasal 3.0L Cannula 09/08 0128 98.5 78 18 190/100 95 Nasal Cannula 09/08 0127 98.5 82 18 206/97 95 Nasal 3.0L Cannula 09/08 0126 98.5 82 18 206/97 09/07 2320 94 Nasal 3.0L Cannula 09/07 2204 98.7 99 19 170/95 96 Nasal Cannula 09/07 1920 Nasal 2.0L Cannula 09/07 1917 98.9 75 19 185/85 94 Nasal 2.0L Cannula Intake & Output 09/08 1600 09/08 0800 09/08 0000 09/07 1600 09/07 0800 09/07 0000 Intake Total 480 Output Total 400 Balance 80 Intake, Oral 480 Number 0 Bowel Movements Output, Urine 400 Patient 200 lb 199 lb Weight Weight Bed scale Standing Scale Measurement Method Physical Exam: General: no apparent distress. Alert. On nasal cannula. Eyes: No obvious scleral icterus. HEENT: No jugular venous distention or abnormal jugular venous pulsations. CEA scar. Cardiovascular: Normal intensity S1/S2. Regular. 1 out of 6 systolic murmur. Respiratory: No rales or rhonchi Abdomen: Soft, nontender with no guarding or rebound tenderness. Musculoskeletal: No clubbing or cyanosis noted; no edema Skin: warm Neurologic: No gross focal deficits noted. Labs/Marcin Results: Laboratory Tests 09/0821 0617 0018 Chemistry Sodium (137 - 145 mmol/L) 140 Potassium (3.5 - 5.1 mmol/L) 4.5 Chloride (98 - 107 mmol/L) 100 Carbon Dioxide (22 - 30 mmol/L) 35 H Anion Gap (5 - 16) 5 BUN (7 - 17 mg/dL) 20 H Creatinine (0.5 - 1.0 mg/dL) 1.5 H Estimated GFR (>60 ml/min) 35 L BUN/Creatinine Ratio (7 - 25 %) 13.3 Troponin I (< 0.11 ng/ml) Cancelled 0.05 0.05 Triglycerides (<150 mg/dL) 169 H Cholesterol (<200 MG/DL) 178 LDL Cholesterol, Calc (65 - 129 mg/dL) 97 HDL Cholesterol (40 - 60 mg/dL) 48 Cholesterol/HDL Ratio (0.00 - 4.23 %) 4 Hematology CBC w Diff NO MAN DIFF REQ WBC (4.8 - 10.8 /CUMM) 5.5 RBC (4.20 - 5.40 /CUMM) 3.50 L Hgb (12.0 - 16.0 G/DL) 9.5 L Hct (37 - 47 %) 28.6 L MCV (81.0 - 99.0 FL) 81.6 MCH (27.0 - 31.0 PG) 27.3 MCHC (33.0 - 37.0 G/DL) 33.4 RDW (11.5 - 14.5 %) 15.0 H Plt Count (130 - 400 /CUMM) 155 MPV (7.4 - 10.4 FL) 7.8 Gran % (42.2 - 75.2 %) 65.2 Lymphocytes % (20.5 - 51.1 %) 19.9 L Monocytes % (1.7 - 9.3 %) 12.4 H Eosinophils % (0 - 5 %) 2.2 Basophils % (0.0 - 2.0 %) 0.3 Absolute Granulocytes (1.4 - 6.5 /CUMM) 3.6 Absolute Lymphocytes (1.2 - 3.4 /CUMM) 1.1 L Absolute Monocytes (0.10 - 0.60 /CUMM) 0.7 H Absolute Eosinophils (0.0 - 0.7 /CUMM) 0.1 Absolute Basophils (0.0 - 0.2 /CUMM) 0 09/07 09/07 09/07 2301 1935 1935 Chemistry Sodium (137 - 145 mmol/L) 138 Potassium (3.5 - 5.1 mmol/L) 4.3 Chloride (98 - 107 mmol/L) 99 Carbon Dioxide (22 - 30 mmol/L) 34 H Anion Gap (5 - 16) 5 BUN (7 - 17 mg/dL) 19 H Creatinine (0.5 - 1.0 mg/dL) 1.2 H Estimated GFR (>60 ml/min) 45 L BUN/Creatinine Ratio (7 - 25 %) 15.8 Glucose (65 - 99 mg/dL) 104 H Calcium (8.4 - 10.2 mg/dL) 8.7 Total Bilirubin (0.2 - 1.3 mg/dL) 0.2 Direct Bilirubin (< 0.4 mg/dL) 0.2 AST (14 - 36 U/L) 28 ALT (9 - 52 U/L) 30 Alkaline Phosphatase (<127 U/L) 98 Troponin I (< 0.11 ng/ml) Cancelled 0.05 Total Protein (6.3 - 8.2 g/dL) 6.8 Albumin (3.5 - 5.0 g/dL) 3.4 L Amylase (30 - 110 U/L) 68 Lipase (23 - 300 U/L) 203 Coagulation PT (9.4 - 12.5 SEC) Cancelled 10.4 INR (0.90 - 1.19) Cancelled 0.95 APTT (25 - 37 SEC) Cancelled 31 D-Dimer High Sensitivty (0 - 243 ng/ml) 376 H Hematology CBC w Diff NO MAN DIFF REQ WBC (4.8 - 10.8 /CUMM) 6.2 RBC (4.20 - 5.40 /CUMM) 3.53 L Hgb (12.0 - 16.0 G/DL) 9.7 L Hct (37 - 47 %) 28.9 L MCV (81.0 - 99.0 FL) 82.0 MCH (27.0 - 31.0 PG) 27.5 MCHC (33.0 - 37.0 G/DL) 33.6 RDW (11.5 - 14.5 %) 14.9 H Plt Count (130 - 400 /CUMM) 158 MPV (7.4 - 10.4 FL) 7.7 Gran % (42.2 - 75.2 %) 64.9 Lymphocytes % (20.5 - 51.1 %) 21.3 Monocytes % (1.7 - 9.3 %) 11.3 H Eosinophils % (0 - 5 %) 2.1 Basophils % (0.0 - 2.0 %) 0.4 Absolute Granulocytes (1.4 - 6.5 /CUMM) 4.0 Absolute Lymphocytes (1.2 - 3.4 /CUMM) 1.3 Absolute Monocytes (0.10 - 0.60 /CUMM) 0.7 H Absolute Eosinophils (0.0 - 0.7 /CUMM) 0.1 Absolute Basophils (0.0 - 0.2 /CUMM) 0 Diagnostic Data EKG Results Tracing was personally reviewed and shows sinus rhythm at 75 bpm with left ventricular hypertrophy and nonspecific STT abnormality CXR Results No acute pulmonary findings compared to 09/05/2017. Other Results Telemetry tracings were personally reviewed and shows sinus rhythm CT 1. No evidence of pulmonary embolism. 2. 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 The infiltrative mass of the left upper lobe has significantly increased in size compared to 04/26/2017. It extends to level of the left hilum. There is left hilar and mediastinal lymphadenopathy. 3. Moderate pulmonary emphysema. 4. Atherosclerotic disease of coronary arteries. There is wall hypertrophy of the left ventricle. No acute pulmonary edema or pleural effusion. 5. No evidence of metastatic disease within the abdomen or pelvis. 6. There is stable dilatation of the common bile duct. No acute findings in the abdomen or pelvis compared to 06/05/2017. 7. Severe atherosclerotic disease of peripheral vessels. There is stable aneurysmal dilatation of the proximal abdominal aorta. Assessment/Plan Assessment/Plan 1. Diffuse pain unlikely cardiac in etiology 2. History of carotid stenosis status post recent CVA 3. Oxygen dependent COPD with lung mass 4. History of a bioprosthetic aortic valve in 2016 with nonobstructive coronary artery disease 5. History of hypertension 6. History of mild aortic dilatation 7. History of heart failure with preserved ejection fraction The patient's symptoms are unlikely due to cardiac etiology. Her ECG abnormality is grossly unchanged from prior. She shows no evidence of decompensated congestive heart failure and recent echocardiogram done in my office showed a normal left ventricular ejection fraction and normal bioprosthetic valve function. Her outpatient cardiac regimen should be continued and if blood pressure remains above goal her amlodipine can be increased to 10 mg p.o. daily. Please call with any additional questions or concerns. She can follow-up in my office after discharge. Luke Tavarez MD FACC Consult Acknowledgment - Thank you for your consult request.
[2017-09-08 14:54] VITALS: BP 142/78
[2017-09-08 22:27] VITALS: BP 138/78
[2017-09-09 07:06] VITALS: BP 130/74
--- NOTE | 2017-09-09 08:15 | PN- Housestaff ---
Abdulkadir VALDOVINOS,Sharmila 09/09/17 0814: Subjective Follow-up For: Atypical chest pain, lung mass, tightness Subjective: No overnight events. Patient was lying in her bed. Patient is on 3 L of oxygen. Not in any acute distress. She feels her chest tightness got better. Denies shortness of breath, chest pain. Review of Systems Constitutional: Reports: no symptoms, see HPI. Objective Last 24 Hrs of Vital Signs/I&O Vital Signs Date Time Temp Pulse Resp B/P B/P Pulse O2 O2 Flow FiO2 Mean Ox Delivery Rate 09/09 1245 95 Nasal 3.0L Cannula 09/09 0934 74 130/74 09/09 0933 76 130/74 09/09 0933 74 130/74 09/09 0800 94 Nasal 3.0L Cannula 09/09 0706 97.3 86 18 130/74 96 Nasal Cannula 09/09 0000 Nasal 3.0L Cannula 09/08 2227 98.8 73 18 138/78 97 Nasal Cannula 09/08 2128 78 138/70 09/08 1900 98 Nasal 4.0L Cannula 09/08 1600 Nasal 3.0L Cannula 09/08 1454 97.9 66 20 142/78 97 Nasal Cannula Intake & Output 09/09 1600 09/09 0800 09/09 0000 Intake Total 240 400 Output Total 500 Balance 240 -100 Intake, Oral 240 400 Number 0 Bowel Movements Output, Urine 500 Patient 206 lb Weight Physical Exam General Appearance: Alert, Oriented X3, Cooperative, No Acute Distress Cardiovascular: Regular Rate, Normal S1, Normal S2, No Murmurs Lungs: bilateral wheeze Abdomen: Soft, No Tenderness, No Hepatospenomegaly Neurological: Normal Speech, Strength at 5/5 X4 Ext, Normal Tone, Sensation Intact Extremities: No Cyanosis, No Edema, Normal Pulses Current Medications: Current Medications Sig/Robyn Start time Last Medication Dose Route Stop Time Status Admin Acetaminophen 650 MG Q6P PRN 09/08 0115 AC PO Acetaminophen 1,000 MG Q6P PRN 09/08 0115 AC IV Albuterol Sulfate 3 ML BID 09/08 2100 AC 09/09 INH 1224 Alprazolam 0.5 MG DAILY NEEDED PRN 09/08 0115 AC PO 09/15 0114 Amlodipine Besylate 10 MG DAILY 09/09 09 AC 09/09 PO 0934 Aspirin 81 MG DAILY 09/08 09 AC 09/09 PO 0933 Atorvastatin Calcium 40 MG QPM 09/08 2100 AC 09/08 PO 2126 Carvedilol 25 MG BID 09/08 0102 AC 09/09 PO 0933 Famotidine 20 MG BID PRN 09/08 1915 AC 09/08 PO 2014 Furosemide 40 MG DAILY 09/08 0900 AC 09/09 PO 0933 Gabapentin 300 MG TID 09/08 0103 AC 09/09 PO 0933 Heparin Sodium 5,000 UNIT Q8 09/08 06 AC 09/09 (Porcine) SC 0548 Losartan Potassium 50 MG DAILY 09/08 09 AC 09/09 PO 0933 Multivitamins 1 TAB DAILY 09/08 09 AC 09/09 PO 0934 Nitroglycerin 0.5 GM Q6P PRN 09/08 0115 AC TOP Omeprazole 40 MG DAILY AC 09/08 0700 AC 09/09 PO 0548 Ondansetron HCl 4 MG Q6P PRN 09/08 1715 AC 09/08 IV 1711 Oxycodone/ 1 TAB Q6P PRN 09/08 0115 AC 09/09 Acetaminophen PO 0629 Phenytoin 200 MG BID 09/08 09 AC 09/09 PO 0933 Sodium Chloride 2 SPRAY Q4P PRN 09/08 0245 AC ROBERT Assessment/Plan Assessment: Ms. Vickers is a 67-year-old female with extensive past medical history and current smoker presented in ER for chest tightness that occurred at rest. Problem list: 1. Atypical chest pain 2. Tubular 1.9 cm lung mass 3. Skin tightness/fatigue #Atypical chest pain: Patient was admitted for chest tightness concerning for ACS. Her troponins have been negative. -Cardiology follow-up -Echocardiogram #Tubular 1.9 cm lung mass: CT imaging revealed a 1.9 cm elongated tubular nodular lesion concerning for neoplastic disease. The patient is a current smoker. It is odd because CT imaging 1 month ago showed that the mass was only 0.9 cm, so it has more than doubled in about a month. -Pulmonology follow-up - need outpatient PET scan #Skin tightness/fatigue: Etiology of her skin tightness and fatigue is unclear. It is possible that she has a paraneoplastic process going on though symptoms have been going on for a long time. -Consider increasing gabapentin -Consider checking Anti-Hu, Anti-CV2/CRMP5, Anti-MAC ARTIST-2, anti-AChR -Consider rheumatological/neurological workup #Chronic medical problems: -Continue other home medications #Neurology recommendation for peripheral neuropathy. DVT prophylaxis with heparin Heart healthy diet Full code Problem List: 1. Unstable angina Pain Ratin Pain Location: none Pain Goal: Remain pain free Pain Plan: tylenol Tomorrow's Labs & Rationales: none Claude Gann MD 09/09/17 1211: Attending MD Review Statement Attending Statement Attending MD Statement: examined this patient, discuss w/resident/PA/EXPERIMENTAL [employer] MECHANIC, agreed w/resident/PA/EXPERIM[employer]AL [employer] MECHANIC, discussed with family, reviewed EMR data (avail), discussed with nursing, discussed with case mgmt, reviewed images, amended to note Attending Assessment/Plan: Impression 67 year old woman * non-specific generalized discomfort, pain and tight skin sensation * enlarged 0.8mm nodule now to a 1.9cm nodule concerning for malignancy * COPD stable and at baseline * recent CEA Plan -neurology evaluation - please request, unclear myopathy pains that are vague for years -tele monitoring, unlikely a cardiac event -TRC/Nebs -respiratory symptoms at baseline -PET outpatient and continued discussion with patient regarding further care regarding consideration for treatment if a cancer diagnosis is made -if neurology agrees can increase gabapentin dose DVT prophylaxis at all times
[2017-09-09 14:37] VITALS: BP 132/68
[2017-09-09 21:53] VITALS: BP 140/74
[2017-09-10 06:00] VITALS: BP 164/90
--- NOTE | 2017-09-10 07:25 | PN- Housestaff ---
See Addendum Subjective Follow-up For: Atypical chest pain, abdominal pain, lung mass Tele-Events Since Last Visit: Sinus rhythm, [address] Subjective: No overnight events. The patient continues to complain about abdominal pain around her umbilicus that is worse a few hours after meals. She has some associated nausea but no vomiting or diarrhea. She says that the patient pain comes and goes. She is also still having the tightness pain but has no shortness of breath or chest pain. Review of Systems Constitutional: Reports: no symptoms. EENTM: Reports: no symptoms. Cardiovascular: Reports: no symptoms. Respiratory: Reports: no symptoms. Gastrointestinal: Reports: see HPI. Genitourinary: Reports: no symptoms. Musculoskeletal: Reports: no symptoms. Skin: Reports: no symptoms. Neurological/Psychological: Reports: no symptoms. Hematologic/Endocrine: Reports: no symptoms. Immunologic/Allergic: Reports: no symptoms. Objective Last 24 Hrs of Vital Signs/I&O Vital Signs Date Time Temp Pulse Resp B/P B/P Pulse O2 O2 Flow FiO2 Mean Ox Delivery Rate 09/10 0400 95 Nasal 3.0L Cannula 09/09 2153 99.0 96 18 140/74 92 Nasal 3.0L Cannula 09/09 2055 87 130/68 09/09 1850 96 Nasal 3.0L Cannula 09/09 1600 Nasal 3.0L Cannula 09/09 1437 99.0 71 19 132/68 94 Nasal Cannula 09/09 1245 95 Nasal 3.0L Cannula 09/09 0934 74 130/74 09/09 0933 76 130/74 09/09 0933 74 130/74 09/09 0800 94 Nasal 3.0L Cannula Intake & Output 09/10 0800 09/10 0000 09/09 1600 Intake Total 550 550 Output Total 300 Balance 550 250 Intake, Oral 550 550 Number 1 Bowel Movements Output, Urine 300 Patient 92.533 kg Weight Weight Bed scale Measurement Method Physical Exam General Appearance: Alert, Oriented X3, Cooperative, No Acute Distress Cardiovascular: Regular Rate, Normal S1, Normal S2 Lungs: Clear to Auscultation Abdomen: Normal Bowel Sounds, Soft, No Tenderness Extremities: No Edema, Normal Pulses, No Tenderness/Swelling Current Medications: Current Medications Sig/Robyn Start time Last Medication Dose Route Stop Time Status Admin Acetaminophen 650 MG .STK-MED ONE 09/09 2056 DC PO 09/09 2057 Acetaminophen 650 MG Q6P PRN 09/08 011 AC 09/10 PO 0600 Acetaminophen 1,000 MG Q6P PRN 09/08 011 IV Albuterol Sulfate 3 ML BID 09/08 2099 AC 09/09 INH 1850 Alprazolam 0.5 MG DAILY NEEDED PRN 09/08 0115 AC PO 09/15 011 Amlodipine Besylate 10 MG DAILY 09/09 09 AC 09/09 PO 0934 Aspirin 81 MG DAILY 09/08 09 AC 09/09 PO 0933 Atorvastatin Calcium 40 MG QPM 09/08 2099 AC 09/09 PO 2049 Carvedilol 25 MG BID 09/08 010 AC 09/09 PO 205 Famotidine 20 MG BID PRN 09/08 191 AC 09/10 PO 0205 Furosemide 40 MG DAILY 09/08 09 AC 09/09 PO 0933 Gabapentin 300 MG TID 09/08 010 AC 09/09 PO 2049 Heparin Sodium 5,000 UNIT Q8 09/08 599 AC 09/10 (Porcine) SC 06 Losartan Potassium 50 MG DAILY 09/08 09 AC 09/09 PO 0933 Melatonin 5 MG AT BEDTIME 09/09 2300 AC 09/09 PO 2306 Multivitamins 1 TAB DAILY 09/08 09 AC 09/09 PO 0934 Nitroglycerin 0.5 GM Q6P PRN 09/08 011 TOP Omeprazole 40 MG DAILY AC 09/08 07 AC 09/10 PO 0600 Ondansetron HCl 4 MG Q6P PRN 09/08 1715 AC 09/08 IV 1711 Oxycodone/ 1 TAB Q6P PRN 09/08 011 AC 09/09 Acetaminophen PO 06 Phenytoin 200 MG BID 09/08 09 AC 09/09 PO 2049 Sodium Chloride 2 SPRAY Q4P PRN 09/08 0245 AC ROBERT Last 24 Hrs of Lab/Marcin Results Last 24 Hrs of Labs/Mics: Laboratory Tests 09/10/17633: Sodium Pending, Potassium Pending, Chloride Pending, Carbon Dioxide Pending, Anion Gap Pending, BUN Pending, Creatinine Pending, BUN/Creatinine Ratio Pending , CBC w Diff Pending, WBC Pending, RBC Pending, Hgb Pending, Hct Pending, MCV Pending, MCH Pending, MCHC Pending, RDW Pending, Plt Count Pending, MPV Pending Assessment/Plan Assessment: Ms. Vickers is a 67-year-old female with extensive past medical history and current smoker presented in ER for chest tightness that occurred at rest. Problem list: 1. Atypical chest pain 2. Tubular 1.9 cm lung mass 3. Peripheral neuropathy 4. Normocytic anemia 5. Abdominal pain #Atypical chest pain: Patient was admitted for chest tightness concerning for ACS. Her troponins have been negative. She still having the chest pain but it does not seem cardiac in nature. Cardiology evaluated and agrees. -Appreciate cardiology recommendations -Discontinue telemetry monitoring #Tubular 1.9 cm lung mass: CT imaging revealed a 1.9 cm elongated tubular nodular lesion concerning for neoplastic disease. The patient is a current smoker. It is odd because CT imaging 1 month ago showed that the mass was only 0.9 cm, so it has more than doubled in about a month. -Appreciate pulmonology recommendations -Will need outpatient PET scan and biopsy #Peripheral neuropathy: Patient has skin tightness and symptoms of peripheral neuropathy. Etiology is unclear. Paraneoplastic process is unlikely given duration of symptoms (greater than 10 years). Potentially secondary to DM. -Consider increasing gabapentin -Consider neurological workup, though this can likely be done outpatient. #Normocytic anemia: Patient has normocytic anemia. She does not seem to be actively bleeding. -Iron studies, folate/b12, retic count -Stool guaiac #Abdominal pain: Patient is complaining of abdominal pain that sounds like indigestion/heartburn even though she is on a PPI. Etiology is unclear. Her abdominal exam is benign and she is not having vomiting or diarrhea. -LFTs -Consider abdominal ultrasound and/or CAT scan #Chronic medical problems: -Continue other home medications DVT prophylaxis with heparin Heart healthy diet Full code Problem List: 1. Abdominal pain Pain Ratin Pain Location: no Pain Goal: Remain pain free Pain Plan: see a/p Tomorrow's Labs & Rationales: cbc
[2017-09-10 07:55] LABS: ABSOLUTE BASOPHIL COUNT 0 /CUMM (0.0-0.2); ABSOLUTE EOSINOPHIL COUNT 0.1 /CUMM (0.0-0.7); ABSOLUTE GRANULOCYTE CT 3.4 /CUMM (1.4-6.5); ABSOLUTE LYMPH COUNT 1.4 /CUMM (1.2-3.4); ABSOLUTE MONOCYTE COUNT 0.6 /CUMM (0.10-0.60); BASOPHIL % 0.6 % (0.0-2.0); EOSINOPHIL % 2.1 % (0-5); GRANULOCYTE % 61.7 % (42.2-75.2); HEMATOCRIT 29.6 % (37-47); MEAN CORPUSCULAR HGB CONC 33.3 G/DL (33.0-37.0); MEAN PLATELET VOLUME 7.4 FL (7.4-10.4); PLATELET COUNT 204 /CUMM (130-400); RBC DISTRIBUTION WIDTH 15.1 % (11.5-14.5); RED BLOOD CELL CT 3.65 /CUMM (4.20-5.40); WHITE BLOOD CELL COUNT 5.6 /CUMM (4.8-10.8)
[2017-09-10] MEDS ORDERED: NORVASC10 M1 PO (09:08)
--- NOTE | 2017-09-10 09:11 | Patient Discharge Instructions ---
Discharge Instructions General Discharge Information You were seen/treated for: Chest pain, abdominal pain, peripheral neuropathy Watch for these problems: Fever, chest pain, shortness of breath Special Instructions: Please take all medications as directed. Please follow up with primary care, neurology, GI, and cardiology. Diet Continue normal diet: Yes Activity Full Activity/No Limits: Yes Acute Coronary Syndrome Inclusion Criteria At DC or during hospital stay patient has or had the following: ACS DIAGNOSIS No Discharge Core Measures Meds if any: Prescribed or Continued at Discharge Meds if any: NOT Prescribed or Continued at Discharge Congestive Heart Failure Inclusion Criteria At DC or during hospital stay patient has or had the following: CHF DIAGNOSIS No Discharge Core Measures Meds if any: Prescribed or Continued at Discharge Meds if any: NOT Prescribed or Continued at Discharge Cerebrovascular accident Inclusion Criteria At DC or during hospital stay patient has or had the following: CVA/TIA Diagnosis No Discharge Core Measures Meds if any: Prescribed or Continued at Discharge Meds if any: NOT Prescribed or Continued at Discharge Venous thromboembolism Inclusion Criteria VTE Diagnosis No VTE Type NONE VTE Confirmed by (Test) NONE Discharge Core Measures - Per Current guidelines, there needs to be overlap - treatment for the first 5 days of Warfarin therapy. - If discharged on Warfarin prior to 5 days of - overlap therapy, the patient will need to be - assessed for post discharge needs including - *Post discharge parental anticoagulation - *Warfarin and/or parental anticoagulation education - *Follow up date to check INR post discharge At least 5 days overlap therapy as Inpatient No Meds if any: Prescribed or Continued at Discharge Note: Overlap Therapy is Warfarin and Anticoagulant Meds if any: NOT Prescribed or Continued at Discharge
[2017-09-10] MEDS ORDERED: HYDROCHLOROTH12.5 M3 PO (09:53)
[2017-09-10] MEDS ORDERED: ASPIRIN EC81 M1 PO (09:53)
--- NOTE | 2017-09-10 10:53 | PN- Pulmonary ---
Subjective HPI/Critical Care Issues: pt seen and examined discussed ct findings with son at respiratory baseline afebrile no n/v/d/c vague pains are intermittent Objective Current Medications: Current Medications Sig/Robyn Start time Last Medication Dose Route Stop Time Status Admin Acetaminophen 650 MG .STK-MED ONE 09/09 2056 DC PO 09/09 2057 Acetaminophen 650 MG Q6P PRN 09/08 0115 AC 09/10 PO 0600 Acetaminophen 1,000 MG Q6P PRN 09/08 0115 IV Albuterol Sulfate 3 ML BID 09/08 2100 AC 09/10 INH 0912 Alprazolam 0.5 MG DAILY NEEDED PRN 09/08 0115 AC PO 09/15 0114 Amlodipine Besylate 10 MG DAILY 09/09 09 AC 09/10 PO 0833 Aspirin 81 MG DAILY 09/08 09 AC 09/10 PO 0832 Atorvastatin Calcium 40 MG QPM 09/08 2100 AC 09/09 PO 2049 Carvedilol 25 MG BID 09/08 0102 AC 09/10 PO 0833 Famotidine 20 MG BID PRN 09/08 1915 AC 09/10 PO 0205 Furosemide 40 MG DAILY 09/08 09 AC 09/10 PO 0833 Gabapentin 300 MG TID 09/08 0103 AC 09/10 PO 0833 Heparin Sodium 5,000 UNIT Q8 09/08 06 AC 09/10 (Porcine) SC 00 Hydrochlorothiazide 12.5 MG DAILY 09/10 1000 AC 09/10 PO 1034 Losartan Potassium 50 MG DAILY 09/08 09 AC 09/10 PO 0833 Melatonin 5 MG AT BEDTIME 09/09 2300 AC 09/09 PO 2306 Multivitamins 1 TAB DAILY 09/08 09 AC 09/10 PO 0833 Nitroglycerin 0.5 GM Q6P PRN 09/08 0115 TOP Omeprazole 40 MG DAILY AC 09/08 0700 AC 09/10 PO 0600 Ondansetron HCl 4 MG Q6P PRN 09/08 1715 AC 09/08 IV 1711 Oxycodone/ 1 TAB Q6P PRN 09/08 0115 AC 09/09 Acetaminophen PO 0629 Phenytoin 200 MG BID 09/08 0900 AC 09/10 PO 0832 Sodium Chloride 2 SPRAY Q4P PRN 09/08 0245 AC ROBERT Vital Signs & I&O Last 24 Hrs of Vitals and I&O: Vital Signs Date Time Temp Pulse Resp B/P B/P Pulse O2 O2 Flow FiO2 Mean Ox Delivery Rate 09/10 0913 97 Nasal 3.0L Cannula 09/10 0833 76 160/90 09/10 0833 76 160/90 09/10 0833 76 160/90 09/10 0600 98.7 78 22 164/90 97 Nasal 3.0L Cannula 09/10 0400 95 Nasal 3.0L Cannula 09/09 2153 99.0 96 18 140/74 92 Nasal 3.0L Cannula 09/09 2055 87 130/68 09/09 1850 96 Nasal 3.0L Cannula 09/09 1600 Nasal 3.0L Cannula 09/09 1437 99.0 71 19 132/68 94 Nasal Cannula 09/09 1245 95 Nasal 3.0L Cannula Intake & Output 09/10 1600 09/10 0800 09/10 0000 Intake Total 200 550 Output Total 200 525 Balance -200 -325 550 Intake, Oral 200 550 Number 1 1 1 Bowel Movements Output, Urine 200 525 Patient 204 lb Weight Weight Bed scale Measurement Method Exam Other Physical Findings: [id number] heent-ncat cvs-s1,s2 lungs-prolonged end expiratory phase abd-soft,bs+ ext-no edema Results Last 24 Hrs of Lab Results: Laboratory Tests 09/10/17 0634: Anion Gap 6, Estimated GFR 45 L, BUN/Creatinine Ratio 15.0, Iron 38, TIBC 301, Ferritin 52.5, Total Bilirubin 0.1 L, Direct Bilirubin 0.1, AST 27, ALT 27, Alkaline Phosphatase 99, Total Protein 6.4, Albumin 3.1 L, Vitamin B12 391, Folate 8.5, TSH Pending, Free T4 Pending, CBC w Diff NO MAN DIFF REQ, RBC 3.65 L, MCV 81.0, MCH 27.0, MCHC 33.3, RDW 15.1 H, MPV 7.4, Gran % 61.7, Lymphocytes % 24.9, Monocytes % 10.7 H, Eosinophils % 2.1, Basophils % 0.6, Absolute Granulocytes 3.4, Absolute Lymphocytes 1.4, Absolute Monocytes 0.6, Absolute Eosinophils 0.1, Absolute Basophils 0, Retic Count 1.95 Impression/Plan Impression/Plan Impression/Plan: Impression 67 year old woman * non-specific generalized discomfort, pain and tight skin sensation * enlarged 0.8mm nodule now to a 1.9cm nodule concerning for malignancy * COPD stable and at baseline * recent CEA Plan -neurology evaluation - unclear myopathy pains that are vague for years -tele monitoring, unlikely a cardiac event -TRC/Nebs -respiratory symptoms at baseline -PET outpatient and continued discussion with patient regarding further care regarding consideration for treatment if a cancer diagnosis is made -if neurology agrees can increase gabapentin dose DVT prophylaxis at all times
--- NOTE | 2017-09-10 10:55 | PN- Cardiology ---
Subjective Subjective: Patient reports still feeling weak today. Objective Vital Signs and I&Os Vital Signs Date Time Temp Pulse Resp B/P B/P Pulse O2 O2 Flow FiO2 Mean Ox Delivery Rate 09/10 0913 97 Nasal 3.0L Cannula 09/10 0833 76 160/90 09/10 0833 76 160/90 09/10 0833 76 160/90 09/10 0600 98.7 78 22 164/90 97 Nasal 3.0L Cannula 09/10 0400 95 Nasal 3.0L Cannula 09/09 2153 99.0 96 18 140/74 92 Nasal 3.0L Cannula 09/09 2055 87 130/68 09/09 1850 96 Nasal 3.0L Cannula 09/09 1600 Nasal 3.0L Cannula 09/09 1437 99.0 71 19 132/68 94 Nasal Cannula 09/09 1245 95 Nasal 3.0L Cannula Intake & Output 09/10 1600 09/10 0800 09/10 0000 09/09 1600 09/09 0800 09/09 0000 Intake Total 200 550 550 240 400 Output Total 200 525 300 500 Balance -200 -325 550 250 240 -100 Intake, Oral 200 550 550 240 400 Number 1 1 1 0 Bowel Movements Output, Urine 200 525 300 500 Patient 204 lb 206 lb Weight Weight Bed scale Measurement Method Physical Exam: General: no apparent distress. Alert. On nasal cannula. Eyes: No obvious scleral icterus. HEENT: No jugular venous distention or abnormal jugular venous pulsations. CEA scar. Cardiovascular: Normal intensity S1/S2. Regular. 1 out of 6 systolic murmur. Respiratory: No rales or rhonchi Abdomen: Soft, nontender with no guarding or rebound tenderness. Musculoskeletal: No clubbing or cyanosis noted; no edema Skin: warm Neurologic: No gross focal deficits noted. Current Medications: Current Medications Sig/Robyn Start time Last Medication Dose Route Stop Time Status Admin Acetaminophen 650 MG .STK-MED ONE 09/09 2056 DC PO 09/09 2057 Acetaminophen 650 MG Q6P PRN 09/08 114 AC 09/10 PO 06 Acetaminophen 1,000 MG Q6P PRN 09/08 114 AC IV Albuterol Sulfate 3 ML BID 09/08 2100 AC 09/10 INH 0912 Alprazolam 0.5 MG DAILY NEEDED PRN 09/08 011 AC PO 09/15 011 Amlodipine Besylate 10 MG DAILY 09/09 09 AC 09/10 PO 0833 Aspirin 81 MG DAILY 09/08 09 AC 09/10 PO 0832 Atorvastatin Calcium 40 MG QPM 09/08 2100 AC 09/09 PO 2049 Carvedilol 25 MG BID 09/08 0102 AC 09/10 PO 0833 Famotidine 20 MG BID PRN 09/08 1915 AC 09/10 PO 0205 Furosemide 40 MG DAILY 09/08 09 AC 09/10 PO 0833 Gabapentin 300 MG TID 09/08 010 AC 09/10 PO 0833 Heparin Sodium 5,000 UNIT Q8 09/08 06 AC 09/10 (Porcine) SC 0600 Hydrochlorothiazide 12.5 MG DAILY 09/10 1000 AC 09/10 PO 1034 Losartan Potassium 50 MG DAILY 09/08 09 AC 09/10 PO 0833 Melatonin 5 MG AT BEDTIME 09/09 2300 AC 09/09 PO 2306 Multivitamins 1 TAB DAILY 09/08 09 AC 09/10 PO 0833 Nitroglycerin 0.5 GM Q6P PRN 09/08 0115 TOP Omeprazole 40 MG DAILY AC 09/08 0700 AC 09/10 PO 0600 Ondansetron HCl 4 MG Q6P PRN 09/08 1715 AC 09/08 IV 1711 Oxycodone/ 1 TAB Q6P PRN 09/08 0115 AC 09/09 Acetaminophen PO 0629 Phenytoin 200 MG BID 09/08 0900 AC 09/10 PO 0832 Sodium Chloride 2 SPRAY Q4P PRN 09/08 0245 AC ROBERT Results Last 48 Hrs of Labs/Mics: Laboratory Tests 09/10/17 0634: Anion Gap 6, Estimated GFR 45 L, BUN/Creatinine Ratio 15.0, Iron 38, TIBC 301, Ferritin 52.5, Total Bilirubin 0.1 L, Direct Bilirubin 0.1, AST 27, ALT 27, Alkaline Phosphatase 99, Total Protein 6.4, Albumin 3.1 L, Vitamin B12 391, Folate 8.5, TSH Pending, Free T4 Pending, CBC w Diff NO MAN DIFF REQ, RBC 3.65 L, MCV 81.0, MCH 27.0, MCHC 33.3, RDW 15.1 H, MPV 7.4, Gran % 61.7, Lymphocytes % 24.9, Monocytes % 10.7 H, Eosinophils % 2.1, Basophils % 0.6, Absolute Granulocytes 3.4, Absolute Lymphocytes 1.4, Absolute Monocytes 0.6, Absolute Eosinophils 0.1, Absolute Basophils 0, Retic Count 1.95 Recent Imaging Studies: Telemetry tracings were personally reviewed and shows sinus rhythm Assessment/Plan Assessment/Plan 1. Diffuse pain unlikely cardiac in etiology 2. History of carotid stenosis status post recent CEA 3. Oxygen dependent COPD with lung mass 4. History of a bioprosthetic aortic valve in 2016 with nonobstructive coronary artery disease 5. History of hypertension 6. History of mild aortic dilatation 7. History of heart failure with preserved ejection fraction No sustained arrhythmias noted on telemetry. Denies chest discomfort on my interview with her this morning. Remains euvolemic on exam. As blood pressure remains above goal despite increased amlodipine dose I discussed with the housestaff and low-dose hydrochlorothiazide is being added. She should remain on a daily low-dose aspirin therapy given her history of bioprosthetic aortic valve. Luke Tavarez MD FAC Continue telemetry? No
--- NOTE | 2017-09-10 11:46 | Discharge Summary ---
Visit Information Visit Dates Admission Date: 09/07/17 Discharge Date: 09/10/2017 Hospital Course Course Attending Physician: Vladislav Muhammad MD Primary Care Physician: Althea VALDOVINOS,Althea Hospital Course: 67-year-old female with a past medical history of seizure, CAD, hypertension, hyperlipidemia, diastolic CHF, prosthetic aortic valve, COPD on 3 L, chronic back pain, anxiety, depression, diabetes, presenting for complaints of chest tightness and abdominal pain radiating to her back in the setting of recent CEA Temperature 98.9, pulse rate 75, respirations 19, blood pressure 185/85. Saturation 94% on 2 L of O2. Labs did show normocytic anemia with H&H 9.7/28.9, platelet count 158, d-dimer 376, PT 10.4, INR 0.95, bicarbonate 34, BUN/creatinine 19/1.2. Amylase is 68, lipase 203. Initial Troponin 0.05. EKG showed normal sinus rhythm with left bundle branch block and repolarization changes. New ST depressions in 1, aVL. Results from imaging studies have been attached below. She was admitted to the telemetry service and below is a summary of the care she received under us. Problem list: 1. Atypical chest pain, rule out for ACS. 2. Tubular 1.9 cm lung mass 3. Peripheral neuropathy 4. Normocytic anemia 5. Abdominal pain #Atypical chest pain: Patient was admitted for chest tightness concerning for ACS. Her troponins were negative. ECG abnormalities were unchanged from prior. Patient showed no evidence of decompensated CHF. Patient's amlodipine was increased to 10 mg by mouth. Patient was also started on low-dose hydrochlorothiazide due to goal blood pressure not been achieved. It was recommended that the patient should be kept on a low dose aspirin given her bioprosthetic aortic valve. It was recommended that the patient should follow-up with cardiology as an outpatient. #Tubular 1.9 cm lung mass: CT imaging revealed a 1.9 cm elongated tubular nodular lesion concerning for neoplastic disease. The patient is a current smoker. CT imaging 1 month ago showed that the mass was only 0.9 cm, so it has more than doubled in about a month. Patient had a pulmonology evaluation while admitted. It was recommended that the patient will need to follow-up as an outpatient and have a PET scan and biopsy. A referral was provided. #Peripheral neuropathy: Patient has skin tightness and symptoms of peripheral neuropathy. Etiology is unclear. Paraneoplastic process is unlikely given duration of symptoms (greater than 10 years). Potentially secondary to DM. Patient was given a referral to follow up with a neurologist as an outpatient. #Normocytic anemia: Patient had normocytic anemia. She does not seem to be actively bleeding. Iron studies, folate, B12 and reticulocyte count were all ordered. Patient did have guaiac positive stool. #Abdominal pain: Patient complained of abdominal pain which sounded like indigestion/heartburn even though she was on a PPI. Etiology of this pain was unclear. Her abdominal exam was benign and she was not having vomiting or diarrhea. Patient was given a referral to follow-up with GI for guaiac positive stools. #Chronic medical problems: Patient's home medications were continued of the course the admission. For DVT prophylaxis the patient was maintained on heparin. Patient had a heart healthy diet. Patient was a full code over the course of admission. Allergies: Coded Allergies: SHANI Inhibitors (Severe, ANGIODEMA 05/17/16) Penicillins (Severe, ANGIODEMA 05/17/16) shellfish derived (UNKNOWN PER PT EATS SHRIMP FINE 05/17/16) aspirin (BODY BREAKS OUT IN SWEATS, GI UPSET 05/17/16) Pertinent Lab Results: SERVICE DATE: 09/07/17 EXAM TYPE: RAD - XRY-PORTABLE CHEST XRAY EXAMINATION: XR PORTABLE CHEST CLINICAL INFORMATION: Dyspnea COMPARISON: 09/05/2017 TECHNIQUE: Portable frontal view of the chest was obtained. FINDINGS: Lungs are symmetrically expanded and grossly clear on this single view exam. No focal consolidation, edema or pleural effusion. Cardiac silhouette is normal in size for an AP portable examination technique. The sternotomy wires are intact. The aortic valve is replaced. There is atherosclerotic calcification of the aorta. Old, healed fractures of right posterior third and fourth ribs. IMPRESSION: No acute pulmonary findings compared to 09/05/2017. DICTATED BY: Fahad Hilario MD SERVICE DATE: 09/07/17 EXAM TYPE: CAT - CT ABD & PELVIS W IV CONTRAST; CTA CHEST-PULMONARY EMBOLISM EXAMINATION: CT ANGIOGRAM OF THE CHEST WITH CONTRAST (CT PULMONARY ANGIOGRAM FOR PE) CT ABDOMEN AND PELVIS WITH INTRAVENOUS CONTRAST CLINICAL INFORMATION: Recent surgery. Shortness of breath. COMPARISON: CT images of the abdomen and pelvis from 06/05/2017. Chest CT from 04/26/2017. TECHNIQUE: Prior to contrast administration, noncontrast localization images were obtained. Subsequently, multidetector volumetric imaging was performed from the thoracic inlet to below the diaphragms following the administration of 95 mL Optiray 320 intravenous contrast. No contrast reaction reported. Sagittal, coronal, and MIP oblique sagittal reformatted images were obtained on the CT workstation, uploaded to PACS, and reviewed. After completion of chest imaging, multidetector CT imaging of the abdomen and pelvis was performed. DLP: Total exam dose-length product 1049 mGy-cm FINDINGS: CHEST- QUALITY OF STUDY/CONTRAST BOLUS: Satisfactory. PULMONARY ARTERIES: Pulmonary arteries are normal in size. No embolic filling defects are identified within the main, lobar or segmental vessels. Some of the peripheral vessels are suboptimally evaluated in the lingula and left lower lobe due to image blurring from cardiac or respiratory motion. An area of decreased attenuation in the lateral segment branch of the left lower lobe appears to represent artifact (sagittal reformatted image 36 of 117; axial image 240 of 478). THORACIC AORTA: Atherosclerotic calcification of thoracic aorta without aneurysm or dissection. Aortic valve is replaced. LUNGS AND PLEURA: Moderate centrilobular emphysema. No acute pulmonary consolidation, edema, pneumothorax or pleural effusion. Within the medial aspect of the apicoposterior segment left upper lobe, there is an elongated tubular, nodular lesion consistent with neoplastic disease; it measures up to 1.9 cm AP diameter compared to 0.8 cm on 04/26/2017 and extends over craniocaudal distance of approximately 6 cm. It encases some of the upper lobe arteries and extends along a bronchus to the hilum where there is associated hilar lymphadenopathy. CARDIOVASCULAR: The heart size is normal. There is extensive atherosclerotic calcification of coronary arteries. The left ventricular wall is hypertrophied. No pericardial effusion. MEDIASTINUM: The esophagus has normal wall thickness. Again noted is a multinodular thyroid gland. LYMPHATICS: No pathologic sized axillary or internal mammary lymph nodes. Largest lymph node of the superior left hilum measures 2.1 cm AP. There is soft tissue thickening around the left mainstem bronchus. A prominent precarinal lymph node is 1.6 cm AP (compared to a size of 1.1 cm on 04/26/2017). A prominent lymph node at the level of the aortopulmonary window is 1 cm short axis dimension (image 155, series 2). THORACIC OSSEOUS STRUCTURES: The sternotomy is healed. No aggressive osseous lesions within the thorax. ABDOMEN AND PELVIS - HEPATOBILIARY: Liver has normal size, contour and attenuation. Gallbladder is unremarkable. Common bile duct exhibits stable enlargement (measures approximately 1 cm diameter). There is mild dilatation of central intrahepatic bile ducts. No evidence of hepatic metastasis. PANCREAS: Unremarkable. SPLEEN: Unremarkable. ADRENAL GLANDS: Unremarkable. KIDNEYS, URETERS, BLADDER: No acute findings. Again noted are the hyperdense renal cortical cysts. There are renal vascular calcifications. No nephrolithiasis, hydronephrosis or perinephric edema. The urinary bladder is unremarkable. GI TRACT AND PERITONEUM: Loops of bowel are normal in caliber. Appendix is normal. No evidence of acute inflammation or obstruction along the gastrointestinal tract. ABDOMINAL WALL: Unremarkable. VASCULAR: There is extensive atherosclerotic calcification of the aorta and branch vessels, including renal arteries, with bilateral renal artery stenosis. The proximal abdominal aorta at the level of the celiac trunk measures 3.5 cm transverse and 3 cm AP. The infrarenal abdominal aorta measures up to a maximum of 2.9 cm AP and 2.6 cm transverse. The common iliac arteries are ectatic. LYMPH NODES: No pathologic sized lymph nodes in the abdomen or pelvis. No inguinal lymphadenopathy. PELVIC VISCERA: There are calcified subserosal leiomyomas of the posterior uterus. No adnexal mass. No pelvic free fluid. OSSEOUS STRUCTURES: Facet arthropathy of L4-L5 and L5-S1. Osteoarthritis of the right sacroiliac joint. No suspicious bone lesions. IMPRESSION: 1. No evidence of pulmonary embolism. 2. 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 The infiltrative mass of the left upper lobe has significantly increased in size compared to 04/26/2017. It extends to level of the left hilum. There is left hilar and mediastinal lymphadenopathy. 3. Moderate pulmonary emphysema. 4. Atherosclerotic disease of coronary arteries. There is wall hypertrophy of the left ventricle. No acute pulmonary edema or pleural effusion. 5. No evidence of metastatic disease within the abdomen or pelvis. 6. There is stable dilatation of the common bile duct. No acute findings in the abdomen or pelvis compared to 06/05/2017. 7. Severe atherosclerotic disease of peripheral vessels. There is stable aneurysmal dilatation of the proximal abdominal aorta. DICTATED BY: Fahad Hilario MD Disposition Summary Disposition Principal Diagnosis: 1. Atypical chest pain Additional Diagnosis: 2. Tubular 1.9 cm lung mass 3. Peripheral neuropathy 4. Normocytic anemia 5. Abdominal pain Discharge Disposition: SNF Discharge Instructions General Discharge Information Code Status: Full Code Patient's Diet: Heart Healthy Diet Patient's Activity: As Tolerated Follow-Up Instructions/Appts: Please take all medications as directed. Please follow up with primary care, pulmonology, GI and cardiology. Medications at Discharge Discharge Medications: Stop taking the following medications: Amlodipine Besylate (Amlodipine Besylate) 5 MG TABLET ORAL DAILY Qty = 90 Continue taking these medications: Atorvastatin Calcium (Lipitor) 40 MG TABLET 1 Tablet ORAL Every night Comments: Last Taken: 09/05/17 Time: 4 PM Carvedilol (Coreg) 25 MG TABLET 1 Tablet ORAL TWICE DAILY Comments: Last Taken: 09/06/17 Time: 9 AM Valsartan (Diovan) 40 MG TABLET 1 Tablet ORAL TWICE DAILY Days = 14 Comments: Last Taken: NOT GIVEN IN HOSPITAL Time: Fluticasone/Vilanterol (Breo Ellipta 100-25 Mcg INH) 100 MCG-25 MCG/DOSE BLST.W.DEV 1 PUFF Inhale through mouth DAILY Qty = 60 Comments: NOT TAKEN IN HOSPITAL Omeprazole (Omeprazole) 40 MG CAPSULE.DR 1 Capsule ORAL DAILY Qty = 30 Comments: Last Taken: 09/06/17 Time: 6 AM Gabapentin (Neurontin) 300 MG CAPSULE 1 Capsule ORAL THREE TIMES DAILY Comments: Last Taken: 09/05/17 Time: 2 PM Alprazolam (Alprazolam) 0.5 MG TABLET 1 Tablet ORAL DAILY NEEDED as needed for ANXIETY Qty = 15 Comments: ASTER NOT RECIEVE IN HOSPITAL Zolpidem Tartrate (Zolpidem Tartrate) 5 MG TABLET 1 Tablet ORAL Every night as needed as needed for SLEEP Qty = 30 Comments: DID NOT RECIEVE IN HOSPITAL Phenytoin Sodium Extended (Phenytoin Sodium Extended) 100 MG CAPSULE 2 Capsule ORAL TWICE DAILY Comments: Last Taken: 09/06/17 Time: 9 AM Albuterol Sulfate (Ventolin Hfa) 90 MCG HFA.AER.AD 2 Puff Inhale through mouth EVERY 4-6 HOURS NEEDED as needed for breath Comments: DID NOT RECIEVE IN HOSPITAL Furosemide (Lasix) 40 MG TABLET 40 Milligram ORAL DAILY Qty = 30 Comments: Last Taken: 09/06/17 Time: 9 AM Oxycodone HCl/Acetaminophen (Percocet 5-325 MG Tablet) 5 MG-325 MG TABLET 1-2 Tablet ORAL EVERY 4-6 HOURS NEEDED as needed for PAIN SCALE 4-6 ( MODERATE) Qty = 36 Comments: Last Taken: 09/06/17 Time: 6 AM Start taking the following new medications: Amlodipine Besylate (Norvasc) 10 MG TABLET 10 Milligram ORAL DAILY Qty = 30 No Refills Aspirin (Ecotrin*) 81 MG TABLET.DR 1 Tablet ORAL DAILY Qty = 30 No Refills Hydrochlorothiazide (Hydrochlorothiazide) 12.5 MG CAPSULE 1 Capsule ORAL DAILY Qty = 30 No Refills Copies To: Althea VALDOVINOS,Althea; Corby VALDOVINOS,Tyler; Azeem VALDOVINOS,Claude
[2017-09-10 14:00] VITALS: BP 138/78
[2017-09-10 16:25] VITALS: BP 138/78
--- NOTE | 2017-09-10 18:01 | Cons- Neurology ---
General Information and HPI Consulting Request Date of Consult: 09/10/17 Requested By: Vladislav Muhammad MD Reason for Consult: Severe neuropathy Source of Information: patient Exam Limitations: poor historian History of Present Illness: 67-year-old female with a past medical history of seizures, CAD, hypertension, hyperlipidemia, diastolic CHF, prosthetic aortic valve, COPD on 3 L, chronic back pain, anxiety, depression, diabetes, who presented for complaints of chest tightness and abdominal pain radiating to her back in the setting of recent CEA. She reports having neuropathy for many years that has gradually ascended from the feet to the legs and arms and now even involves her mouth. She is off balance. She has pain that is enwrapping around her trunk. She has only tried gabapentin up to 1200mg a day but with no relief. Allergies/Medications Allergies: Coded Allergies: SHANI Inhibitors (Severe, ANGIODEMA 05/17/16) Penicillins (Severe, ANGIODEMA 05/17/16) shellfish derived (UNKNOWN PER PT EATS SHRIMP FINE 05/17/16) aspirin (BODY BREAKS OUT IN SWEATS, GI UPSET 05/17/16) Home Med List: Albuterol Sulfate (Ventolin Hfa) 90 MCG HFA.AER.AD 2 PUF INH Q4-6 PRN PRN breath (Reported) Alprazolam 0.5 MG TABLET 1 TAB PO DAILY NEEDED PRN ANXIETY (Reported) Amlodipine Besylate (Norvasc) 10 MG TABLET 10 MG PO DAILY BP Aspirin (Ecotrin*) 81 MG TABLET.DR 1 TAB PO DAILY Valve Atorvastatin Calcium (Lipitor) 40 MG TABLET 1 TAB PO QPM CHOLESTEROL ( Reported) Carvedilol (Coreg) 25 MG TABLET 1 TAB PO BID HEART (Reported) Fluticasone/Vilanterol (Breo Ellipta 100-25 Mcg INH) 100 MCG-25 MCG/DOSE BLST.W.DEV 1 PUFF INH DAILY RESPIRATORY (Reported) Furosemide (Lasix) 40 MG TABLET 40 MG PO DAILY CHF Gabapentin (Neurontin) 300 MG CAPSULE 1 CAP PO TID NEUROPATHY (Reported) Hydrochlorothiazide 12.5 MG CAPSULE 1 CAP PO DAILY BP Omeprazole 40 MG CAPSULE.DR 1 CAP PO DAILY GI (Reported) Oxycodone HCl/Acetaminophen (Percocet 5-325 MG Tablet) 5 MG-325 MG TABLET 1-2 TAB PO Q4-6 PRN PRN PAIN SCALE 4-6 (MODERATE) Phenytoin Sodium Extended 100 MG CAPSULE 2 CAP PO BID sizure (Reported) Valsartan (Diovan) 40 MG TABLET 1 TAB PO BID HEART Zolpidem Tartrate 5 MG TABLET 1 TAB PO QPMP PRN SLEEP (Reported) Current Medications: Current Medications Sig/Robyn Start time Last Medication Dose Route Stop Time Status Admin Acetaminophen 650 MG .STK-MED ONE 09/10 557 DC PO 09/10 05 Acetaminophen 650 MG .STK-MED ONE 09/09 2056 DC PO 09/09 2057 Acetaminophen 650 MG Q6P PRN 09/08 011 AC 09/10 PO 0600 Acetaminophen 1,000 MG Q6P PRN 09/08 0115 IV Albuterol Sulfate 3 ML BID 09/08 2100 AC 09/10 INH 0912 Alprazolam 0.5 MG DAILY NEEDED PRN 09/08 0115 PO 09/15 011 Amlodipine Besylate 10 MG DAILY 09/09 899 AC 09/10 PO 0833 Aspirin 81 MG DAILY 09/08 09 AC 09/10 PO 0832 Atorvastatin Calcium 40 MG QPM 09/08 2100 AC 09/09 PO 2049 Carvedilol 25 MG BID 09/08 010 AC 09/10 PO 0833 Famotidine 20 MG BID PRN 09/08 1915 AC 09/10 PO 0205 Furosemide 40 MG DAILY 09/08 09 AC 09/10 PO 0833 Gabapentin 300 MG TID 09/08 0103 AC 09/10 PO 1452 Heparin Sodium 5,000 UNIT Q8 09/08 06 AC 09/10 (Porcine) SC 1452 Hydrochlorothiazide 12.5 MG DAILY 09/10 1000 AC 09/10 PO 1034 Losartan Potassium 50 MG DAILY 09/08 09 AC 09/10 PO 0833 Melatonin 5 MG AT BEDTIME 09/09 2300 AC 09/09 PO 2306 Multivitamins 1 TAB DAILY 09/08 09 AC 09/10 PO 0833 Nitroglycerin 0.5 GM Q6P PRN 09/08 0115 AC TOP Omeprazole 40 MG DAILY AC 09/08 0700 AC 09/10 PO 0600 Ondansetron HCl 4 MG Q6P PRN 09/08 1715 AC 09/08 IV 1711 Oxycodone/ 1 TAB Q6P PRN 09/08 0115 AC 09/09 Acetaminophen PO 0629 Phenytoin 200 MG BID 09/08 0900 AC 09/10 PO 0832 Sodium Chloride 2 SPRAY Q4P PRN 09/08 0245 ROBERT Review of Systems Review of Systems: As per HPI. Past History Travel History Traveled to [place] past 21 day No Medical History Blood Transfusion Hx: No Neurological: seizure EENT: NONE Cardiovascular: CAD, hypertension, hyperlipidemia, DIASTOLIC CHF SUPRA AORTIC VALVULAR MEMBRANE Respiratory: COPD, emphysema, O2 DEP 3L Gastrointestinal: GERD Hepatic: NONE Renal: NONE Musculoskeletal: chronic back pain, disk herniation Psychiatric: anxiety, depression Endocrine: diabetes, HYPOGLYCEMIC EVENTS POSSIBLE DIET CONTROLLED Blood Disorders: NONE Cancer(s): NONE REGULATORY COORDINATOR/Reproductive: NONE Other Medical Hx: Her COPD has required home oxygen Surgical History Surgical History: HEMORRHOIDS REMOVED aortic valve replacement Family History Relations & Conditions If Any: SON (HTN). FATHER (CVA). Psychosocial History Where Do You Live? Home Who Do You Live With? sister Services at Home: Nursing, Oxygen, Physical Therapy, Social Work Primary Language: Syriac Smoking Status: Current Everyday Smoker ETOH Use: denies use Illicit Drug Use: marijuana Functional Ability ADLs Independent: dressing, eating, toileting, bathing. Ambulation: walker IADLs Needs Assist: shopping, housework, finances, food prep, telephone, transportation, medication admin. Exam & Diagnostic Data Vital Signs and I&O Vital Signs Date Time Temp Pulse Resp B/P B/P Pulse O2 O2 Flow FiO2 Mean Ox Delivery Rate 09/10 1625 98.9 90 20 138/78 09/10 1400 98.9 90 20 138/78 95 09/10 1053 Nasal 3.0L Cannula 09/10 0913 97 Nasal 3.0L Cannula 09/10 0833 76 160/90 09/10 0833 76 160/90 09/10 0833 76 160/90 09/10 0800 93 Nasal 3.0L Cannula 09/10 0600 98.7 78 22 164/90 97 Nasal 3.0L Cannula 09/10 0400 95 Nasal 3.0L Cannula 09/09 2153 99.0 96 18 140/74 92 Nasal 3.0L Cannula 09/09 2055 87 130/68 09/09 1850 96 Nasal 3.0L Cannula Intake & Output 09/10 1600 09/10 0800 09/10 0000 Intake Total 600 200 550 Output Total 1050 525 Balance -450 -325 550 Intake, Oral 600 200 550 Number 3 1 1 Bowel Movements Output, Urine 1050 525 Patient 204 lb 204 lb Weight Weight Bed scale Measurement Method Physical Exam: Alert and orientedx3 EOMI, MARISA, no nystagmus Face symmetric tongue midline Strength in arms -5/5 in legs 4/5 proximally and distally with L>R foot drop FNF normal VF normal Gait deferred. Last 48 Hours of Lab Results: Laboratory Tests 09/10 0634 Chemistry Sodium (137 - 145 mmol/L) 139 Potassium (3.5 - 5.1 mmol/L) 4.4 Chloride (98 - 107 mmol/L) 98 Carbon Dioxide (22 - 30 mmol/L) 34 H Anion Gap (5 - 16) 6 BUN (7 - 17 mg/dL) 18 H Creatinine (0.5 - 1.0 mg/dL) 1.2 H Estimated GFR (>60 ml/min) 45 L BUN/Creatinine Ratio (7 - 25 %) 15.0 Iron (37 - 170 ug/dL) 38 TIBC (265 - 497 ug/dL) 301 Ferritin (11.1 - 264 ng/mL) 52.5 Total Bilirubin (0.2 - 1.3 mg/dL) 0.1 L Direct Bilirubin (< 0.4 mg/dL) 0.1 AST (14 - 36 U/L) 27 ALT (9 - 52 U/L) 27 Alkaline Phosphatase (<127 U/L) 99 Total Protein (6.3 - 8.2 g/dL) 6.4 Albumin (3.5 - 5.0 g/dL) 3.1 L Vitamin B12 (239 - 931 pg/mL) 391 Folate (2.76 - 20.0 ng/mL) 8.5 TSH (0.270 - 4.200 uIU/mL) 3.330 Free T4 (0.78 - 2.44 ng/dL) 0.96 Hematology CBC w Diff NO MAN DIFF REQ WBC (4.8 - 10.8 /CUMM) 5.6 RBC (4.20 - 5.40 /CUMM) 3.65 L Hgb (12.0 - 16.0 G/DL) 9.9 L Hct (37 - 47 %) 29.6 L MCV (81.0 - 99.0 FL) 81.0 MCH (27.0 - 31.0 PG) 27.0 MCHC (33.0 - 37.0 G/DL) 33.3 RDW (11.5 - 14.5 %) 15.1 H Plt Count (130 - 400 /CUMM) 204 MPV (7.4 - 10.4 FL) 7.4 Gran % (42.2 - 75.2 %) 61.7 Lymphocytes % (20.5 - 51.1 %) 24.9 Monocytes % (1.7 - 9.3 %) 10.7 H Eosinophils % (0 - 5 %) 2.1 Basophils % (0.0 - 2.0 %) 0.6 Absolute Granulocytes (1.4 - 6.5 /CUMM) 3.4 Absolute Lymphocytes (1.2 - 3.4 /CUMM) 1.4 Absolute Monocytes (0.10 - 0.60 /CUMM) 0.6 Absolute Eosinophils (0.0 - 0.7 /CUMM) 0.1 Absolute Basophils (0.0 - 0.2 /CUMM) 0 Retic Count (0.5 - 2.0 %) 1.95 Imaging/Other Studies: IMPRESSION: 1. No evidence of pulmonary embolism. 2. 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 The infiltrative mass of the left upper lobe has significantly increased in size compared to 04/26/2017. It extends to level of the left hilum. There is left hilar and mediastinal lymphadenopathy. 3. Moderate pulmonary emphysema. 4. Atherosclerotic disease of coronary arteries. There is wall hypertrophy of the left ventricle. No acute pulmonary edema or pleural effusion. 5. No evidence of metastatic disease within the abdomen or pelvis. 6. There is stable dilatation of the common bile duct. No acute findings in the abdomen or pelvis compared to 06/05/2017. 7. Severe atherosclerotic disease of peripheral vessels. There is stable aneurysmal dilatation of the proximal abdominal aorta. 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 She has lung malignancy that could predisopose her to a parneoplastic syndrome. She has a long history of drinking and possibly Diabetes. She is on Dilantin for seizures that could predisopose to neuropathy related to Folate depletion and cerebellar degeneration. Recommendations: 1. Start B12 supp 1000 mcg IM daily x 4 days then once monthly. 2. Start Metafolate 2 mg daily. 3. Check UNIQUE, ANCA, HbA1c, SPEP, B12, TSH, anti-Hu antibody. 4. Consider starting Cymbalta 30mg PO daily as SNRIs are good fastener technologist treatment for neuropathy. May take up to 6 weeks to kick in. YC Consult Acknowledgment - Thank you for your consult request.
== END 2017-09-10 19:10 | DRG 313 ==
LOC: ERH 19:08 → ERHI 22:54 → 1NO 22:54 → EDBEDREQ 23:51 → ENRESERV 09-08 → 1NO 09-08 02:16
PROVIDERS: Internal Medicine; Pediatrics; Student in an Organized Health Care Education/Training Program
DX: R07.89 Other chest pain (principal); I50.32 Chronic diastolic (congestive) heart failure; R10.9 Unspecified abdominal pain; I11.0 Hypertensive heart disease with heart failure; I73.9 Peripheral vascular disease, unspecified; J44.9 Chronic obstructive pulmonary disease, unspecified; Z99.81 Dependence on supplemental oxygen; I25.10 Atherosclerotic heart disease of native coronary artery without angina pectoris; F17.210 Nicotine dependence, cigarettes, uncomplicated; R91.8 Other nonspecific abnormal finding of lung field; Z95.3 Presence of xenogenic heart valve; F32.9 Major depressive disorder, single episode, unspecified; F41.9 Anxiety disorder, unspecified; F12.90 Cannabis use, unspecified, uncomplicated; Z88.6 Allergy status to analgesic agent; Z88.0 Allergy status to penicillin; Z88.8 Allergy status to other drugs, medicaments and biological substances; Z79.51 Long term (current) use of inhaled steroids; M54.9 Dorsalgia, unspecified; K21.9 Gastro-esophageal reflux disease without esophagitis; D64.9 Anemia, unspecified; G62.9 Polyneuropathy, unspecified
CPT/HCPCS: 1NSP; ERO; 36592; 71045; 74177; 82436; 93005; 93010; 97116-GO; 97161-GP; 97530-GO; J0131; J1644; J2405; J3490

== ENCOUNTER 2017-10-24 16:48 | Observation (INO) | payer OTHER, MEDICARE ==
[~2017-10-24] VITALS: Ht 167.6 cm; Wt 92.5 kg
[~2017-10-24 16:48] MED LIST changes: +ASPIRIN EC81 M1 PO; +HYDROCHLOROTH12.5 M3 PO; +NORVASC10 M1 PO
[2017-10-24 17:25] LABS: ABSOLUTE BASOPHIL COUNT 0 /CUMM (0.0-0.2); ABSOLUTE EOSINOPHIL COUNT 0.1 /CUMM (0.0-0.7); ABSOLUTE GRANULOCYTE CT 3.2 /CUMM (1.4-6.5); ABSOLUTE LYMPH COUNT 1.5 /CUMM (1.2-3.4); ABSOLUTE MONOCYTE COUNT 0.7 /CUMM (0.10-0.60); BASOPHIL % 0.1 % (0.0-2.0); EOSINOPHIL % 2.6 % (0-5); GRANULOCYTE % 57.6 % (42.2-75.2); HEMATOCRIT 35.9 % (37-47); MEAN CORPUSCULAR HGB 25.3 PG (27.0-31.0); MEAN CORPUSCULAR HGB CONC 32.5 G/DL (33.0-37.0); MEAN CORPUSCULAR VOLUME 77.9 FL (81.0-99.0); MEAN PLATELET VOLUME 7.4 FL (7.4-10.4); PLATELET COUNT 188 /CUMM (130-400); RBC DISTRIBUTION WIDTH 14.6 % (11.5-14.5); WHITE BLOOD CELL COUNT 5.6 /CUMM (4.8-10.8)
--- NOTE | 2017-10-24 17:39 | ED GENERAL ADULT ---
See Addendum History of Present Illness General Chief Complaint: Chest Pain Stated Complaint: CP Source: patient, family Exam Limitations: no limitations Vital Signs & Intake/Output Vital Signs & Intake/Output Vital Signs Date Time Temp Pulse Resp B/P B/P Pulse O2 O2 Flow FiO2 Mean Ox Delivery Rate 10/24 2100 97.8 81 20 148/79 97 Nasal 3.0L Cannula 10/24 1946 Nasal 3.0L Cannula 10/24 1729 Nasal 3.0L Cannula 10/24 1706 88 24 134/69 95 Nasal 3.0L Cannula Allergies Coded Allergies: SHANI Inhibitors (Severe, ANGIODEMA 05/17/16) Penicillins (Severe, ANGIODEMA 05/17/16) shellfish derived (UNKNOWN PER PT EATS SHRIMP FINE 05/17/16) aspirin (BODY BREAKS OUT IN SWEATS, GI UPSET 05/17/16) Triage Note: PT TO ED FOR CHEST PAIN WITH SOME SOB X2 DAYS. PT ON HOME O2 AT 3 LITERS. STATES SHE TRIED TO "RIDE IT OUT" AT HOME BUT PAIN IS GETTING WORSE. STATES PAIN IS 6 OUT OF 10 ON LOWER LEFT RIB CAGE AREA, WORSE WITH DEEP BREATHING.. STATES TAKING PAIN MEDS SHE TAKES AT NIGHT IS ONLY THING THAT HAS HELPED HER PAIN. PT APPEARS SLIGHTLY SOB. ASSISTED TO STRETCHER IN ROOM 10. CHANGED INTO GOWN. 12 LEAD EKG DONE. PLACED ON MONITOR IN NSR WITH OCCASIONAL PVC. SKIN WARM AND DRY Triage Nurses Notes Reviewed? yes Onset: Abrupt Timing: single episode today Injury Environment: home Severity: mild, moderate Severity Numbers: 6 No Modifying Factors: none Modifying Factors: Worsens With: movement. Associated Symptoms: chest pain LMP (ages 10-50): unknown : No Patient currently breastfeeds: No HPI: 67-year-old female history of coronary artery disease COPD on 3 L nasal cannula, diastolic CHF, diabetes chronic back pain and anxiety depression presents for evaluation of left-sided upper abdominal and chest pain. Patient states these symptoms started a few days ago and are getting worse. The pain is located in the left inferior chest and left upper quadrant does not radiate. She describes it as a pressure. The pain is worse when she moves around the bed and with touching the area. She feels like the area is swollen. She denies any change in her breathing from her usual. No hemoptysis no lower extremity edema and no fevers. She has not taken any medicine for the pain. No fevers nausea or vomiting. Patient was recently hospitalized for an elective carotid endarterectomy several weeks ago. After the procedure she was too weak to go home so she went to [facility] and was discharged a week ago. Since she has been home she felt like she has been having increasing weakness. She feels like she is unable to walk due to persistent shortness of breath on exertion as well as chronic back pain. (Akira TSANG,Yazan) Reconcile Medications Albuterol Sulfate (Ventolin Hfa) 90 MCG HFA.AER.AD 2 PUF INH Q4-6 PRN PRN breath (Reported) Alprazolam 0.5 MG TABLET 1 TAB PO DAILY NEEDED PRN ANXIETY (Reported) Amlodipine Besylate (Norvasc) 10 MG TABLET 10 MG PO DAILY BP Atorvastatin Calcium (Lipitor) 40 MG TABLET 1 TAB PO QPM CHOLESTEROL ( Reported) Carvedilol (Coreg) 25 MG TABLET 1 TAB PO BID HEART (Reported) Fluticasone/Vilanterol (Breo Ellipta 100-25 Mcg INH) 100 MCG-25 MCG/DOSE BLST.W.DEV 1 PUFF INH DAILY RESPIRATORY (Reported) Furosemide (Lasix) 40 MG TABLET 40 MG PO DAILY CHF Gabapentin (Neurontin) 300 MG CAPSULE 1 CAP PO TID NEUROPATHY (Reported) Hydrochlorothiazide 12.5 MG CAPSULE 1 CAP PO DAILY BP Losartan Potassium (Unknown Strength) TABLET 25 MG PO DAILY BP (Reported) Omeprazole 40 MG CAPSULE.DR 1 CAP PO DAILY GI (Reported) Oxycodone HCl/Acetaminophen (Percocet 5-325 MG Tablet) 5 MG-325 MG TABLET 1-2 TAB PO Q4-6 PRN PRN PAIN SCALE 4-6 (MODERATE) Phenytoin Sodium Extended 100 MG CAPSULE 2 CAP PO BID sizure (Reported) Valsartan 80 MG TABLET 1 TAB PO DAILY HEART/BP (Reported) Zolpidem Tartrate 5 MG TABLET 1 TAB PO QPMP PRN SLEEP (Reported) (Thomas VALDOVINOS,Mike) Past History Travel History Traveled to [place] past 21 day No Medical History Any Pertinent Medical History? see below for history Neurological: seizure EENT: NONE Cardiovascular: CAD, hypertension, hyperlipidemia, DIASTOLIC CHF SUPRA AORTIC VALVULAR MEMBRANE Respiratory: COPD, emphysema, O2 DEP 3L Gastrointestinal: GERD Hepatic: NONE Renal: NONE Musculoskeletal: chronic back pain, disk herniation Psychiatric: anxiety, depression Endocrine: diabetes, HYPOGLYCEMIC EVENTS POSSIBLE DIET CONTROLLED Blood Disorders: NONE Cancer(s): NONE DIE TURNER/Reproductive: NONE Other Medical Hx: Her COPD has required home oxygen History of MRSA: No History of VRE: No History of CDIFF: No Surgical History Surgical History: HEMORRHOIDS REMOVED aortic valve replacement Psychosocial History Who do you live with Sister Services at Home Nursing, Oxygen, Physical Therapy, Social Work What is your primary language Uzbek Tobacco Use: Current Daily Use Daily Tobacco Use Amount/Type: =< 4 Cigarettes daily ETOH Use: denies use Illicit Drug Use: denies illicit drug use Family History Family History, If Any: SON (HTN). FATHER (CVA). Hx Contributory? No (Yazan Guerrero) Review of Systems Review of Systems Constitutional: Reports: no symptoms. EENTM: Reports: no symptoms. Respiratory: Reports: no symptoms. Cardiovascular: Reports: see HPI, chest pain. GI: Reports: see HPI, abdominal pain. Genitourinary: Reports: no symptoms. Musculoskeletal: Reports: no symptoms. Skin: Reports: no symptoms. Neurological/Psychological: Reports: no symptoms. Hematologic/Endocrine: Reports: no symptoms. Immunologic/Allergic: Reports: no symptoms. All Other Systems: Reviewed and Negative (Yazan Guerrero) Physical Exam Physical Exam General Appearance: well developed/nourished, no apparent distress, alert, awake , obese Head: atraumatic, normal appearance Eyes: Bilateral: normal appearance, PERRL, EOMI. Ears, Nose, Throat: normal pharynx, normal ENT inspection, hearing grossly normal Neck: normal inspection, supple, full range of motion Respiratory: no respiratory distress, rhonchi (mild diffuse ), chest wall tenderness palpation over the inferior sternum and left chest no bruising swelling or abrasions Cardiovascular: regular rate/rhythm, normal peripheral pulses Peripheral Pulses: 2+ radial (R), 2+ radial (L) Gastrointestinal: normal bowel sounds, soft, no organomegaly, tenderness (left upper quadrant epigastric) Back: normal inspection, normal range of motion, no vertebral tenderness Extremities: normal inspection, normal range of motion, no edema Neurologic/Psych: no motor/sensory deficits, awake, alert, oriented x 3, normal gait, normal mood/affect Skin: intact, normal color, warm/dry Lymphatic: no anterior cervical rian Core Measures ACS in differential dx? No CVA/TIA Diagnosis: No Sepsis Present: No Sepsis Focused Exam Completed? No (Akira TSANG,Yazan) Progress Differential Diagnoses I considered the following diagnoses in my evaluation of the patient: [ Musculoskeletal pain, acute coronary syndrome, aortic dissection, PE, pneumonia, gastritis, pancreatitis] Plan of Care: Orders Procedure Date/time Status Heart Healthy Diet 10/25 B Active PT Evaluate & Treat 10/26 2227 Active CBC WITHOUT DIFFERENTIAL 10/25 599 Active BASIC ELECTROLYTES PLUS BUN&CR 10/25 599 Active TRC EVALUATION (GEN) 10/25 2227 Active OXYGEN SETUP (GEN) 10/25 2227 Active Pathway - chart 10/25 2227 Active House Staff 10/25 2227 Active Vital Signs 10/25 2223 Active Teach/Educate 10/25 2223 Active Pain Treatment and Response 10/25 2223 Active Nutritional Intake, Monitor 10/25 2223 Active Isolation 10/25 2223 Active Intake & Output 10/25 2223 Active Patient Care Conference 10/25 2223 Active Activity/Ambulation 10/25 2223 Active Patient Data 10/24 2132 Active Intake & Output 10/24 2100 Active TROPONIN LEVEL 10/24 2014 Complete EKG 10/24 2014 Active Patient Data 10/24 1938 Active OXYGEN SETUP (GEN) 10/24 1933 Active Saline Lock 10/[address] in observation 10/24 1933 Active Vital Signs 10/24 1933 Active Activity/Ambulation 10/24 193 Active Code Status 10/24 193 Active Add-on Test (ER Only) 10/24 191 Active LIPASE 10/24 1712 Complete TROPONIN LEVEL 10/24 170 Complete MAGNESIUM 10/24 1700 Complete D-DIMER 10/24 1700 Complete COMPREHENSIVE METABOLIC PANEL 10/24 1700 Complete CBC WITHOUT DIFFERENTIAL 10/24 1700 Complete B-TYPE NATRIURETIC PEP (BNP) 10/24 170 Complete EKG 10/24 1650 Active VTE Mechanical Prophylaxis 10/24 UNK Active Intake & Output 10/24 UNK Active Activity/Ambulation 10/24 UNK Active Current Medications Sig/Robyn Start time Last Medication Dose Stop Time Status Admin Heparin Sodium 5,000 UNIT Q8 10/25 06 AC (Porcine) Oxycodone/ 1 TAB Q6P PRN 10/24 223 AC Acetaminophen (Percocet) Laboratory Tests 08/01/18 2034: Troponin I 0.04 10/24/17 1712: Anion Gap 11, Estimated GFR 35 L, BUN/Creatinine Ratio 22.0, Glucose 95, Calcium 8.8, Magnesium 1.7, Total Bilirubin 0.2, AST 27, ALT 39, Alkaline Phosphatase 92, Troponin I 0.04, [id number] Pept 458 H, Total Protein 8.1, Albumin 4.1, Globulin 4.0, Albumin/Globulin Ratio 1.0 L, Lipase 308 H, D- Dimer High Sensitivty 233, CBC w Diff NO MAN DIFF REQ, RBC 4.60, MCV 77.9 L, MCH 25.3 L, MCHC 32.5 L, RDW 14.6 H, MPV 7.4, Gran % 57.6, Lymphocytes % 27.5 , Monocytes % 12.2 H, Eosinophils % 2.6, Basophils % 0.1, Absolute Granulocytes 3.2, Absolute Lymphocytes 1.5, Absolute Monocytes 0.7 H, Absolute Eosinophils 0.1, Absolute Basophils 0 Patient is here for evaluation of chest and abdominal pain. This pain started a few days ago but has been getting worse. The pain is reproducible with some range of motion around the bed as well as palpation. Her EKG does not appear to be severely changed. Labs chest x-ray CT scan ordered patient medicated with IV Tylenol and oxycodone. Blood work is unremarkable including a negative troponin and negative d-dimer normal BNP. Chest x-ray is clear CT scan of the chest redemonstrates a left lung malignancy that is known to the patient does not appear to be worse. A repeat EKG and troponin will be obtained. Patient reports increased weakness pain in her back shortness of breath on exertion. She feels like she is unable to ambulate at home because of this. She does not feel safe going home. She wants to go back to the [facility]. Spoke with case management who recommends patient be brought in for observation in order to place the patient back in short-term rehabilitation. The patient will require serial lab severely EKGs case management physical therapy pain control. Spoke with Dr. sawyer he agrees Diagnostic Imaging: Viewed by Me: Radiology Read, CT Scan. Discussed w/RAD: Radiology Read, CT Scan. Radiology Impression: PATIENT: JUNIOR ASENCIO PRESENT AGE: 67 PATIENT ACCOUNT NO: [id number] : 49 LOCATION: [facility] ORDERING PHYSICIAN: Yazan TSANG SERVICE DATE: 10/24/17 EXAM TYPE: CAT - CT ABD & PELVIS W/O IV CONTRAS; CT CHEST WO IV CONTRAST EXAMINATION: CT CHEST, ABDOMEN AND PELVIS WITHOUT CONTRAST CLINICAL INFORMATION: Chest pain. Shortness of breath. Epigastric pain. COMPARISON: CT scan abdomen and pelvis 06/05/2017. CT chest 04/26/2017, 09/07/2017. PET/CT 10/02/2017. TECHNIQUE: Multidetector volumetric CT imaging of the chest, abdomen and pelvis was obtained without administration of oral or IV contrast. Coronal and sagittal reformatted images are performed at the CT scanner. DLP: 939.66 mGy-cm. FINDINGS: CT CHEST: LUNGS: Emphysematous changes of the lung. The mass at the medial aspect of the left upper lobe extending to the tania is again demonstrated. This is consistent with patient's known neoplastic disease. The margins of the mass are less distinct on this noncontrast study as the medial margin of the mass is inseparable from the adjacent vascular structures of the tania. There is a metastatic nodule in the anterior left lower lobe axial image 371 (5) measuring 1.3 cm. This is unchanged since the PET/CT of 10/02/2017. MEDIASTINUM: There are shotty lymph nodes in the pretracheal retrovascular space and AP window. These are similar to the prior PET/CT study of 10/02/2017. The lymph node anterior to the anjana and the retrovascular space measures 1.4 cm, axial image 193 (4). Lymph node at the AP window on the left measuring 1.5 cm, axial image 181 (4). PLEURA: There is no pleural effusion. No pleural mass or thickening. AXILLA: No lymphadenopathy. CT ABDOMEN AND PELVIS: LIVER, GALLBLADDER, AND BILIARY TREE: The liver is normal in size, shape, and attenuation. No focal hepatic lesion or biliary ductal dilatation is present. Extrahepatic CBD measures 1 cm unchanged since prior study. No calcified stone within the bile ducts or the gallbladder. PANCREAS: No acute change of the pancreas. No mass. No pancreatic duct dilatation. SPLEEN: Spleen normal in size and contour. No focal lesion. ADRENAL GLANDS: Adrenal glands are normal in size. No focal mass. KIDNEYS AND URETERS: There is a 1 mm nonobstructive stone in the upper pole and another in the midpole of the left kidney. There is no stone in the right kidney. There is no hydronephrosis.There are multiple hyperdense cysts in both kidneys. Largest in the midpole of the left kidney measuring 2 cm. BLADDER: Unremarkable. GASTROINTESTINAL TRACT: No acute change of the bowel. No bowel obstruction. No bowel wall thickening or edema. Moderate volume of stool in the colon. The appendix is normal. The small bowel loops are unremarkable. MESENTERY: No focal inflammation. No free fluid. No free air. ABDOMINAL WALL: Small fat-containing umbilical hernia. LYMPH NODES: Normal. VASCULAR: Extensive vascular wall calcifications of the aorta and major branch vessels of the aorta throughout the abdomen and the pelvis. There is no aneurysm. PELVIC VISCERA: Unremarkable. OSSEOUS STRUCTURES: Status post median sternotomy. No acute osseous abnormality. IMPRESSION: 1. No acute abnormality of the chest, abdomen or pelvis. 2. Again demonstrated is the mass lesion in the left upper lobe and a metastatic nodule in the left lower lobe. Mediastinal lymphadenopathy remains unchanged. No evidence of metastatic disease in the abdomen or pelvis. 3. There is diffuse atherosclerotic vascular calcifications of the aorta and the chest, abdomen and pelvis without aneurysm. DICTATED BY: Grant Venegas MD DATE/TIME DICTATED:10/24/171830 PATENT CHEMIST:EDIS DATE/TIME TRANSCRIBED:10/24/171830 CXR Impression: PATIENT: JUNIOR ASENCIO PRESENT AGE: 67 PATIENT ACCOUNT NO: [id number] : 49 LOCATION: [facility] ORDERING PHYSICIAN: Yazan TSANG SERVICE DATE: 10/24/17 EXAM TYPE: RAD - XRY-PORTABLE CHEST XRAY EXAMINATION: XR PORTABLE CHEST CLINICAL INFORMATION: Chest pain. COMPARISON: Chest x-ray 09/07/2017 TECHNIQUE: Portable frontal view of the chest was obtained. 4:54 PM FINDINGS: Status post median sternotomy. The heart size is normal. The cardiac and mediastinal contours are normal. There is no pulmonary vascular congestion. Lungs are clear. There is no pleural effusion or pneumothorax. IMPRESSION: No acute abnormality of the chest. DICTATED BY: Grant Venegas MD DATE/TIME DICTATED:10/24/171749 PATENT CHEMIST:EDIS DATE/ TIME TRANSCRIBED:10/24/171749 CONFIDENTIAL, DO NOT COPY WITHOUT APPROPRIATE AUTHORIZATION. <Electronically signed in Other Vendor System> SIGNED BY: Grant Venegas MD 10/24/171755 Initial ED EKG: normal sinus rhythm, LBBB, nonspecific ST T wave chg, diffuse ST depressions and T-wave inversions unchanged from previous Prior EKG: unchanged (Yazan Guerrero) Departure Departure Disposition: STILL A PATIENT Condition: Stable Clinical Impression Primary Impression: Chest pain, unspecified Qualifiers: Chest pain type: unspecified Qualified Code: R07.9 - Chest pain, unspecified Secondary Impressions: Weakness Referrals: Althea Oh MD (PCP/Family) Departure Forms: Customer Survey General Discharge Information Admission Note Spoke With: Sabi Sneed MD Documentation of Exam: Documentation of any treatments & extenuating circumstances including Concerns Regarding Discharge (functional status, medication knowledge or non-compliance, living conditions, etc.) that warrant an admission rather than observation: [ serial lab severely EKGs case management physical therapy pain control] (Yazan Guerrero) PA/DIGITIZER OPERATOR Co-Sign Statement Statement: ED Attending supervision documentation- x I saw and evaluated the patient. I have also reviewed all the pertinent lab results and diagnostic results. I agree with the findings and the plan of care as documented in the PA's/DIGITIZER OPERATOR's documentation. CP, chronic sob worsening with inability to ambulate [] I have reviewed the ED Record and agree with the PA's/DIGITIZER OPERATOR's documentation. [] Additions or exceptions (if any) to the PAs/DIGITIZER OPERATOR's note and plan are summarized below: [] (Thomas VALDOVINOS,Mike) Critical Care Note Critical Care Note Critical Care Time: non-applicable (Yazan Guerrero)
--- NOTE | 2017-10-24 17:56 | RADIOLOGY REPORT ---
EXAMINATION: XR PORTABLE CHEST CLINICAL INFORMATION: Chest pain. COMPARISON: Chest x-ray 09/07/2017 TECHNIQUE: Portable frontal view of the chest was obtained. 4:54 PM FINDINGS: Status post median sternotomy. The heart size is normal. The cardiac and mediastinal contours are normal. There is no pulmonary vascular congestion. Lungs are clear. There is no pleural effusion or pneumothorax. IMPRESSION: No acute abnormality of the chest.
[2017-10-24] MEDS ORDERED: VALSARTAN80 M1 PO (18:24)
[2017-10-24] MEDS ORDERED: LOSARTAN POTASS25 M1 PO (18:28)
--- NOTE | 2017-10-24 19:02 | CT SCAN REPORT ---
EXAMINATION: CT CHEST, ABDOMEN AND PELVIS WITHOUT CONTRAST CLINICAL INFORMATION: Chest pain. Shortness of breath. Epigastric pain. COMPARISON: CT scan abdomen and pelvis 06/05/2017. CT chest 04/26/2017, 09/07/2017. PET/CT 10/02/2017. TECHNIQUE: Multidetector volumetric CT imaging of the chest, abdomen and pelvis was obtained without administration of oral or IV contrast. Coronal and sagittal reformatted images are performed at the CT scanner. DLP: 939.66 mGy-cm. FINDINGS: CT CHEST: LUNGS: Emphysematous changes of the lung. The mass at the medial aspect of the left upper lobe extending to the tania is again demonstrated. This is consistent with patient's known neoplastic disease. The margins of the mass are less distinct on this noncontrast study as the medial margin of the mass is inseparable from the adjacent vascular structures of the tania. There is a metastatic nodule in the anterior left lower lobe axial image 371 (5) measuring 1.3 cm. This is unchanged since the PET/CT of 10/02/2017. MEDIASTINUM: There are shotty lymph nodes in the pretracheal retrovascular space and AP window. These are similar to the prior PET/CT study of 10/02/2017. The lymph node anterior to the anjana and the retrovascular space measures 1.4 cm, axial image 193 (4). Lymph node at the AP window on the left measuring 1.5 cm, axial image 181 (4). PLEURA: There is no pleural effusion. No pleural mass or thickening. AXILLA: No lymphadenopathy. CT ABDOMEN AND PELVIS: LIVER, GALLBLADDER, AND BILIARY TREE: The liver is normal in size, shape, and attenuation. No focal hepatic lesion or biliary ductal dilatation is present. Extrahepatic CBD measures 1 cm unchanged since prior study. No calcified stone within the bile ducts or the gallbladder. PANCREAS: No acute change of the pancreas. No mass. No pancreatic duct dilatation. SPLEEN: Spleen normal in size and contour. No focal lesion. ADRENAL GLANDS: Adrenal glands are normal in size. No focal mass. KIDNEYS AND URETERS: There is a 1 mm nonobstructive stone in the upper pole and another in the midpole of the left kidney. There is no stone in the right kidney. There is no hydronephrosis.There are multiple hyperdense cysts in both kidneys. Largest in the midpole of the left kidney measuring 2 cm. BLADDER: Unremarkable. GASTROINTESTINAL TRACT: No acute change of the bowel. No bowel obstruction. No bowel wall thickening or edema. Moderate volume of stool in the colon. The appendix is normal. The small bowel loops are unremarkable. MESENTERY: No focal inflammation. No free fluid. No free air. ABDOMINAL WALL: Small fat-containing umbilical hernia. LYMPH NODES: Normal. VASCULAR: Extensive vascular wall calcifications of the aorta and major branch vessels of the aorta throughout the abdomen and the pelvis. There is no aneurysm. PELVIC VISCERA: Unremarkable. OSSEOUS STRUCTURES: Status post median sternotomy. No acute osseous abnormality. IMPRESSION: 1. No acute abnormality of the chest, abdomen or pelvis. 2. Again demonstrated is the mass lesion in the left upper lobe and a metastatic nodule in the left lower lobe. Mediastinal lymphadenopathy remains unchanged. No evidence of metastatic disease in the abdomen or pelvis. 3. There is diffuse atherosclerotic vascular calcifications of the aorta and the chest, abdomen and pelvis without aneurysm.
--- NOTE | 2017-10-24 20:05 | History & Physical ---
Lavelle Lemus 10/24/17 2004: General Information and HPI MD Statement: I have seen and personally examined JUNIOR VICKERS and documented this H&P. The patient is a 67 year old F who presented with a patient stated chief complaint of []. Source of Information: patient, family, old records History of Present Illness: Mrs. Vickers is a 67F with a PMH of hypertension, coronary artery disease, COPD 3 L at home, diastolic heart failure last ejection fraction 65% December 2016, recent carotid endarterectomy, seizure disorder, lung mass with PET scan on 10/02 showing primary lung nodule with metastases to the mediastinum presents with a 2 day history of chest pain noticed at rest, feels like "someone sitting on her left chest ", radiates under her left breast, relieved with Percocet which she had been taking during her rehab stay, worse with movement, constant since Sunday night but has not worsened, 6 out of 10 on pain, woke her up from sleep on Sunday. Chest pain is associated with exertional dyspnea. Patient always has baseline dyspnea, but states that since Sunday she feels as though she is unable to walk due to shortness of breath and weakness. Patient has had a recent admission back in September 05 after carotid endarterectomy with the same symptoms. She had gone to [facility] for rehab on September 07, was recently discharged from rehab to home approximately 1 week ago. States that she feels as though she did not have enough time at rehab, but states that insurance would not pay for any longer stay. States that she has been using a walker to get around, although is now too weak and short of breath to use that at home since Sunday. States that she tried to "tough the pain out" but as it had not remitted she called her PCP who told her to go to the ED today. PMH: As above Allergies: SHANI, ASA, PCN Sx: Carotid endarterectomy Soc: Significant smoking history ROS Positive for: Exertional dyspnea, reproducible chest pain Negative for: Fevers, Sick contacts, Palpitations, Nausea/Vomiting/Diarrhea, Urinary Symptoms Allergies/Medications Allergies: Coded Allergies: SHANI Inhibitors (Severe, ANGIODEMA 05/17/16) Penicillins (Severe, ANGIODEMA 05/17/16) shellfish derived (UNKNOWN PER PT EATS SHRIMP FINE 05/17/16) aspirin (BODY BREAKS OUT IN SWEATS, GI UPSET 05/17/16) Home Med list Albuterol Sulfate (Ventolin Hfa) 90 MCG HFA.AER.AD 2 PUF INH Q4-6 PRN PRN breath (Reported) Alprazolam 0.5 MG TABLET 1 TAB PO DAILY NEEDED PRN ANXIETY (Reported) Amlodipine Besylate (Norvasc) 10 MG TABLET 10 MG PO DAILY BP Atorvastatin Calcium (Lipitor) 40 MG TABLET 1 TAB PO QPM CHOLESTEROL ( Reported) Carvedilol (Coreg) 25 MG TABLET 1 TAB PO BID HEART (Reported) Fluticasone/Vilanterol (Breo Ellipta 100-25 Mcg INH) 100 MCG-25 MCG/DOSE BLST.W.DEV 1 PUFF INH DAILY RESPIRATORY (Reported) Furosemide (Lasix) 40 MG TABLET 40 MG PO DAILY CHF Gabapentin (Neurontin) 300 MG CAPSULE 1 CAP PO TID NEUROPATHY (Reported) Hydrochlorothiazide 12.5 MG CAPSULE 1 CAP PO DAILY BP Losartan Potassium (Unknown Strength) TABLET 25 MG PO DAILY BP (Reported) Omeprazole 40 MG CAPSULE.DR 1 CAP PO DAILY GI (Reported) Oxycodone HCl/Acetaminophen (Percocet 5-325 MG Tablet) 5 MG-325 MG TABLET 1-2 TAB PO Q4-6 PRN PRN PAIN SCALE 4-6 (MODERATE) Phenytoin Sodium Extended 100 MG CAPSULE 2 CAP PO BID sizure (Reported) Zolpidem Tartrate 5 MG TABLET 1 TAB PO QPMP PRN SLEEP (Reported) Past History Travel History Traveled to [place] past 21 day No Medical History Neurological: seizure EENT: NONE Cardiovascular: CAD, hypertension, hyperlipidemia, DIASTOLIC CHF SUPRA AORTIC VALVULAR MEMBRANE Respiratory: COPD, emphysema, O2 DEP 3L Gastrointestinal: GERD Hepatic: NONE Renal: NONE Musculoskeletal: chronic back pain, disk herniation Psychiatric: anxiety, depression Endocrine: diabetes, HYPOGLYCEMIC EVENTS POSSIBLE DIET CONTROLLED Blood Disorders: NONE Cancer(s): NONE LAMP DEVELOPER/Reproductive: NONE Other Medical Hx: Her COPD has required home oxygen History of MRSA: No History of VRE: No History of CDIFF: No Surgical History Surgical History: HEMORRHOIDS REMOVED aortic valve replacement Past Family/Social History Family History Relations & Conditions if any SON (HTN). FATHER (CVA). Psychosocial History Who Do You Live With? sister Services at Home: Nursing, Oxygen, Physical Therapy, Social Work Primary Language: Georgian ETOH Use: denies use Illicit Drug Use: denies illicit drug use Functional Ability ADLs Independent: dressing, eating, toileting, bathing. Ambulation: walker IADLs Needs Assist: shopping, housework, finances, food prep, telephone, transportation, medication admin. Review of Systems Review of Systems Constitutional: Reports: see HPI. Exam & Diagnostic Data Last 24 Hrs of Vital Signs/I&O Vital Signs Date Time Temp Pulse Resp B/P B/P Pulse O2 O2 Flow FiO2 Mean Ox Delivery Rate 10/25 0000 92 Nasal 3.0L Cannula 10/24 2245 92 Nasal 3.0L Cannula 10/24 2242 98.0 80 20 160/82 90 Nasal Cannula 10/24 2101 97.8 81 20 148/79 97 Nasal 3.0L Cannula 10/24 1947 Nasal 3.0L Cannula 10/24 1730 Nasal 3.0L Cannula 10/24 1706 88 24 134/69 95 Nasal 3.0L Cannula Intake & Output 10/25 0800 10/25 0000 10/24 1600 Intake Total 240 Output Total Balance 240 Intake, Oral 240 Patient 204 lb Weight Weight Reported by Patient Measurement Method Physical Exam General Appearance Alert, Oriented X3, Cooperative, No Acute Distress Skin No Rashes Skin Temp/Moisture Exam: Warm/Dry Cardiovascular Normal S1, Normal S2, No Murmurs Lungs diminished in all chase Abdomen Soft, No Tenderness Neurological Normal Speech, Cranial Nerves 3-12 NL Extremities No Edema Last 24 Hrs of Labs/Marcin: Laboratory Tests 10/24/172033: Troponin I 0.04 10/24/17 1712: Anion Gap 11, Estimated GFR 35 L, BUN/Creatinine Ratio 22.0, Glucose 95, Calcium 8.8, Magnesium 1.7, Total Bilirubin 0.2, AST 27, ALT 39, Alkaline Phosphatase 92, Troponin I 0.04, Qhr-N-Dkkmgiityec Pept 458 H, Total Protein 8.1, Albumin 4.1, Globulin 4.0, Albumin/Globulin Ratio 1.0 L, Lipase 308 H, D- Dimer High Sensitivty 233, CBC w Diff NO MAN DIFF REQ, RBC 4.60, MCV 77.9 L, MCH 25.3 L, MCHC 32.5 L, RDW 14.6 H, MPV 7.4, Gran % 57.6, Lymphocytes % 27.5 , Monocytes % 12.2 H, Eosinophils % 2.6, Basophils % 0.1, Absolute Granulocytes 3.2, Absolute Lymphocytes 1.5, Absolute Monocytes 0.7 H, Absolute Eosinophils 0.1, Absolute Basophils 0 Assessment/Plan Assessment: Ms. Vickers is a 67yo F w/ PMH of HTN, HLD, CAD s/p R carotid endarterctomy & aortic stenosis s/p prosthetic AVR, COPD on home O2 3L, HFpEF (last echo 2016), CBP, Seizure Disorder, BRET lung mass, DM not on meds (prev HbA1c 6.0 in 01/2017) , anxiety/depression who presented with a 3 day history of chest pain that had negative troponins and sinus rhythym LBBB no ST segment abnormalities by sgarbossa criteria under OBS for atypical chest pain and inability to ambulate unsafe discharge home #Atypical Chest Pain -Trops negative x2 -EKG unchanged from previous, no gross ST segment abnormalaties -Allergic to ASA -Monitor for exacerbation of pain/increased SOB -CXR negative for pneumonia/effusion #BRET lung mass with mets to mediastinum, LLL -CT Chest/Abdomen/Pelvis shows mass lesion in the left upper lobe and a metastatic nodule in the left lower lobe. Mediastinal lymphadenopathy remains unchanged -Likely source of patients chest pain -Had PET scan outpatient on 10/02 -Unsure if patient had biopsy or not, will clarify in the AM patients wishes for further workup -Potentially good candidate for hospice/palliative consult in the AM pending patients wishes -Oncology consult in the AM if patient wishes to continue with workup -Normocalcemic on labs -Hyponatremic; f/u BEP in the AM -Pulm consult in the AM -Percocet with morphine for breakthrough pain -PT eval #CKD3 -Pt unsure if she sees kidney doctor or not -Likely outpt f/u for management -Trend BEP DVT PPX IV access DNR/DNI Heart healthy diet Dispo - pending PT eval As Ranked By This Provider Problem List: 1. Weakness Core Measures/Misc (12/10) Acute Coronary Syndrome ACS Diagnosis: No Congestive Heart Failure Congestive Heart Failure Diagnosis No Cerebrovascular Accident CVA/TIA Diagnosis: No VTE (View Protocol) VTE Risk Factors Age>40 No Mechanical VTE Prophylaxis d/t N/A MechProphylax Ordered No VTE Pharm Prophylaxis d/t NA PharmProphylax ordered Sepsis (View protocol) Sepsis Present: No If YES complete Sepsis Event Note If YES complete Sepsis Event Note Danica Tapia 10/24/172010: Core Measures/Misc (12/10) Sepsis (View protocol) If YES complete Sepsis Event Note If YES complete Sepsis Event Note Resident Review Statement Resident Statement: examined this patient, discussed with landscape maintenance internship, agreed with landscape maintenance internship, discussed with family, reviewed EMR data (avail), discussed with nursing , discussed with case mgmt, reviewed images, amended to note Other Findings: Ms. Vickers is a 67yo F w/ PMH of HTN, HLD, CAD s/p R carotid endarterctomy & aortic stenosis s/p prosthetic AVR, COPD on home O2 3L, HFpEF (last echo 2016), CBP, hx of seizure?, BRET lung mass, DM not on meds (prev HbA1c 6.0 in 01/2017), anxiety/depression, presented to ER for eval of L upper ab and CP and weakness x a few days with worsening. CP mainly pressure-like located in the left inferior chest and LUQ ab however no radiating. History as detailed above. -Smoking: occasional w/ 4cigs/day -Alcohol: denied -Rec Drugs: Medical marijuana On admission, Vitals: Stable afebrile, pulse 88, RR 24, BP 134/69, 95% on the nasal cannula 3 L at baseline Physical exam as above. -CBC: No leukocytosis, H/H 11.6/35.9, -BMP: Mild hyponatremia 134, elevated creatinine 1.5 possibly at baseline according to previous labs, proBNP 458, troponin 0.04 at her baseline -PT/INR: D-dimer 233 -UA/Microbiology: No previous positive cultures in our system -CT chest/abdomen:1. No acute abnormality of the chest, abdomen or pelvis. 2. Again demonstrated is the mass lesion in the left upper lobe and a metastatic nodule in the left lower lobe. Mediastinal lymphadenopathy remains unchanged. No evidence of metastatic disease in the abdomen or pelvis. 3. There is diffuse atherosclerotic vascular calcifications of the aorta and the chest, abdomen and pelvis without aneurysm. -EKG: NSR with LBBB, and diffuse ST depressions and T-wave inversions unchanged from previous EKG -Last Echo: 12/2016 with stage I diastolic dysfunction, EF greater than 65%, with moderate aortic stenosis -Interventions in ER: IV acetaminophen 1, oxycodone 5 mg p.o. 1 Problem list/Assessment/Hospital Course: #Atypical chest pain, likely 2/2 mediastinum metastases from Lung mass, unlikely cardiac issue based on PMH/negative trop/EKG, pending further evaluations #Microcytic anemia, possibly due to chronic disease #Stage III CKD #BRET lung mass w/ possible mets, likely stage 4 lung cancer #PMH of CAD s/p R carotid endarterctomy & AVR, COPD on home O2 3L, HFpEF (last echo 2017), CBP, anxiety/depression - Place in observation. - Vitals per protocol, monitor I&O per protocol. - Patient's trop at baseline and EKG unchanged from previous, would not need to trend EKG/Trop at this moment. Monitor for exacerbation of chest pain/increasing SOB if any. - PT/OT in the AM per primary team - Continue home meds - Patient may need nephro consult in outpatient for CKD as she was not seen by aviation tactical readiness officer before. - Due to the possible nature of BRET lung mass with possible medialstinal mets from recent PET scan, patient would either needs a biopsy which may predispose her to further tx including chemo/radiation, which may significantly alter her QoL; Her atypical chest pain could be due to this metastases. - Consider palliative care if patient votes no to biopsy. Patient's would benefit from pain control from palliative stand point, and if possible, palliative radiation therapy. DVT prophylaxis Pharm PPX + ALPS Heart Healthy Diet IV Access: Peripheral IV DNR/DNI Naren VALDOVINOS,[facility] 10/25/17 0105: Core Measures/Misc (12/10) Sepsis (View protocol) If YES complete Sepsis Event Note If YES complete Sepsis Event Note Attending MD Review Statement Attending Statement Attending MD Statement: examined this patient, discuss w/resident/PA/SURVEY PARTY CHIEF, agreed w/resident/PA/SURVEY PARTY CHIEF Attending Assessment/Plan: This is a 67-year-old female with a past medical history significant for lung cancer with a new finding of a left sided mediastinal mass presenting to the hospital for evaluation of atypical chest pain. She was recently discharged from the hospital and sent to an ECF a few weeks ago, during her hospitalization she was managed for similar chest pain which was found to be noncardiac in etiology. She was recently discharged from her ECF and upon arrival to her home she experienced significant weakness and her left-sided chest pain had not resolved. Patient has not yet followed up with a oncologist for evaluation of her lung cancer. We will admit the patient under observation status for chest pain control. Her chest pain is likely secondary to her underlying lung cancer and metastasis to the left mediastinum. She will need follow-up with oncology and pulmonary. It will be reasonable to obtain a palliative consultation in the morning. Currently we will control her pain with Percocet and morphine as needed for breakthrough pain. resolved. Patient has not yet followed up with a oncologist for evaluation of her lung cancer. We will admit the patient under observation status for chest pain control. Her chest pain is likely secondary to her underlying lung cancer and metastasis to the left mediastinum. She will need follow-up with oncology and pulmonary. It will be reasonable to obtain a palliative consultation in the morning. Currently we will control her pain with Percocet and morphine as needed for breakthrough pain. -Microbiology -Pain DVT prophylaxis Pharm PPX + ALPS Regular Diet IV Access: Peripheral IV Full Code Naren VALDOVINOS,[facility] 10/25/17 0105: Core Measures/Misc (12/10) Sepsis (View protocol) If YES complete Sepsis Event Note If YES complete Sepsis Event Note Attending MD Review Statement Attending Statement Attending Assessment/Plan: This is a 67-year-old female with a past medical history significant for lung cancer with a new finding of a left sided mediastinal mass presenting to the hospital for evaluation of atypical chest pain. She was recently discharged from the hospital and sent to an ECF a few weeks ago, during her hospitalization she was managed for similar chest pain which was found to be noncardiac in etiology. She was recently discharged from her ECF and upon arrival to her home she experienced significant weakness and her left-sided chest pain had not resolved. Patient has not yet followed up with a oncologist for evaluation of her lung cancer. We will admit the patient under observation status for chest pain control. Her chest pain is likely secondary to her underlying lung cancer and metastasis to the left mediastinum. She will need follow-up with oncology and pulmonary. It will be reasonable to obtain a palliative consultation in the morning. Currently we will control her pain with Percocet and morphine as needed for breakthrough pain.
[2017-10-24 22:43] VITALS: BP 160/82
[2017-10-25 06:29] VITALS: BP 140/98
[2017-10-25 08:27] LABS: ABSOLUTE BASOPHIL COUNT 0 /CUMM (0.0-0.2); ABSOLUTE EOSINOPHIL COUNT 0.2 /CUMM (0.0-0.7); ABSOLUTE GRANULOCYTE CT 2.6 /CUMM (1.4-6.5); ABSOLUTE LYMPH COUNT 1.4 /CUMM (1.2-3.4); ABSOLUTE MONOCYTE COUNT 0.7 /CUMM (0.10-0.60); BASOPHIL % 0.4 % (0.0-2.0); EOSINOPHIL % 3.3 % (0-5); GRANULOCYTE % 54.5 % (42.2-75.2); HEMATOCRIT 34.1 % (37-47); MEAN CORPUSCULAR HGB 25.5 PG (27.0-31.0); MEAN CORPUSCULAR VOLUME 77.5 FL (81.0-99.0); MEAN PLATELET VOLUME 7.7 FL (7.4-10.4); PLATELET COUNT 155 /CUMM (130-400); RBC DISTRIBUTION WIDTH 14.4 % (11.5-14.5); WHITE BLOOD CELL COUNT 4.9 /CUMM (4.8-10.8)
--- NOTE | 2017-10-25 10:35 | Cons- Pulmonary ---
General Information and HPI Consulting Request Date of Consult: 10/25/17 Requested By: Dr. Browne Reason for Consult: lung mass Source of Information: patient Exam Limitations: no limitations History of Present Illness: 67 year old woman. Known to me from the office. Presented for ongoing vague pains in extremities, abdomen and chest. I am involved in her care for her COPD and a workup of her lung nodule consistent with a malignant process per imaging. CT 08/2017 showed BRET 8mm now 1.9cm. This is intense SUV singal on the PET in the known left lung nodule and subcarinal and AP window lymph node. The patient is undecided which approach to pursue for diagnosis and staging purposes. She is scheduled to see myself and Dr. Spencer to pursue tissue diagnosis next week. She was initially inclined to pursue electromagnetic navigation bronchoscopy and possible mediastinoscopy, however she may elect a trans-thoracic approach which will limit the staging of disease, however, suggestive of spread. For her COPD she is maintained on BREO and proair for rescue. She has nebulized tx as well. Her respiratory status appears at baseline. She has JOHNSTON, no current cough, no fevers, no chills . No n/v/d/c. No devlin, the pains as described. No new sick contacts or travel hx. Allergies/Medications Allergies: Coded Allergies: SHANI Inhibitors (Severe, ANGIODEMA 05/17/16) Penicillins (Severe, ANGIODEMA 05/17/16) shellfish derived (UNKNOWN PER PT EATS SHRIMP FINE 05/17/16) aspirin (BODY BREAKS OUT IN SWEATS, GI UPSET 05/17/16) Home Med List: Albuterol Sulfate (Ventolin Hfa) 90 MCG HFA.AER.AD 2 PUF INH Q4-6 PRN PRN breath (Reported) Alprazolam 0.5 MG TABLET 1 TAB PO DAILY NEEDED PRN ANXIETY (Reported) Amlodipine Besylate (Norvasc) 10 MG TABLET 10 MG PO DAILY BP Atorvastatin Calcium (Lipitor) 40 MG TABLET 1 TAB PO QPM CHOLESTEROL ( Reported) Carvedilol (Coreg) 25 MG TABLET 1 TAB PO BID HEART (Reported) Fluticasone/Vilanterol (Breo Ellipta 100-25 Mcg INH) 100 MCG-25 MCG/DOSE BLST.W.DEV 1 PUFF INH DAILY RESPIRATORY (Reported) Furosemide (Lasix) 40 MG TABLET 40 MG PO DAILY CHF Gabapentin (Neurontin) 300 MG CAPSULE 1 CAP PO TID NEUROPATHY (Reported) Hydrochlorothiazide 12.5 MG CAPSULE 1 CAP PO DAILY BP Losartan Potassium (Unknown Strength) TABLET 25 MG PO DAILY BP (Reported) Omeprazole 40 MG CAPSULE.DR 1 CAP PO DAILY GI (Reported) Oxycodone HCl/Acetaminophen (Percocet 5-325 MG Tablet) 5 MG-325 MG TABLET 1-2 TAB PO Q4-6 PRN PRN PAIN SCALE 4-6 (MODERATE) Phenytoin Sodium Extended 100 MG CAPSULE 2 CAP PO BID sizure (Reported) Zolpidem Tartrate 5 MG TABLET 1 TAB PO QPMP PRN SLEEP (Reported) Current Medications: Current Medications Sig/Robyn Start time Last Medication Dose Route Stop Time Status Admin Acetaminophen 0 .STK-MED ONE 10/24 1824 DC IV Acetaminophen 1,000 MG ONCE ONE 10/24 1800 DC 10/24 N/A 1 UNIT IV 10/24 1814 1840 Albuterol Sulfate 2 PUF Q4-6 PRN PRN 10/25 0045 AC INH Amlodipine Besylate 10 MG DAILY 10/25 09 AC 10/25 PO 0800 Atorvastatin Calcium 40 MG QPM 10/25 2100 AC PO Carvedilol 25 MG BID 10/25 09 AC 10/25 PO 0801 Furosemide 40 MG DAILY 10/25 09 AC 10/25 PO 0800 Gabapentin 300 MG TID 10/25 0900 AC 10/25 PO 0800 Heparin Sodium 5,000 UNIT Q8 10/25 0600 AC 10/25 (Porcine) SC 0514 Hydrochlorothiazide 12.5 MG DAILY 10/25 09 AC 10/25 PO 0800 Losartan Potassium 25 MG DAILY 10/25 09 AC 10/25 PO 0800 Morphine Sulfate 2 MG Q4P PRN 10/24 2345 AC 10/25 IV 1029 Omeprazole 40 MG DAILY AC 10/25 07 AC 10/25 PO 0514 Oxycodone HCl 0 .STK-MED ONE 10/24 1938 DC PO Oxycodone HCl 5 MG ONCE ONE 10/24 191 DC 10/24 PO 10/24 1916 1940 Oxycodone/ 2 TAB Q6P PRN 10/25 0030 AC 10/25 Acetaminophen PO 0514 Oxycodone/ 1 TAB Q6P PRN 10/24 2230 DC Acetaminophen PO Phenytoin 200 MG BID 10/25 0900 AC 10/25 PO 0801 Review of Systems Comments 18 point review of systems was performed and reviewed. Please see pertinent positives and pertinent negatives in the HPI. Otherwise ROS is negative. 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 FATHER (CVA). Psychosocial History Who Do You Live With? sister Services at Home: Nursing, Oxygen, Physical Therapy, Social Work Primary Language: Croatian Smoking Status: Current Everyday Smoker ETOH Use: denies use Illicit Drug Use: denies illicit drug use Functional Ability ADLs Independent: dressing, eating, toileting, bathing. Ambulation: walker IADLs Needs Assist: shopping, housework, finances, food prep, telephone, transportation, medication admin. Exam & Diagnostic Data Last 24 Hrs of Vital Signs/I&O Vital Signs Date Time Temp Pulse Resp B/P B/P Pulse O2 O2 Flow FiO2 Mean Ox Delivery Rate 10/25 1140 96 Nasal 3.0L Cannula 10/25 0801 60 140/98 10/25 0800 60 140/98 10/25 0800 60 140/98 10/25 0800 98 Nasal 3.0L Cannula 10/25 0629 98.1 69 20 140/98 95 Nasal Cannula 10/25 0000 92 Nasal 3.0L Cannula 10/24 2246 92 Nasal 3.0L Cannula 10/24 2243 98.0 80 20 160/82 90 Nasal Cannula 10/24 2101 97.8 81 20 148/79 97 Nasal 3.0L Cannula 10/24 1947 Nasal 3.0L Cannula 10/24 1730 Nasal 3.0L Cannula 10/24 1706 88 24 134/69 95 Nasal 3.0L Cannula Intake & Output 10/25 1600 10/25 0810/25 0000 Intake Total 210 240 Output Total 300 Balance -90 240 Intake, IV 10 Intake, Oral 200 240 Output, Urine 300 Patient 204 lb Weight Weight Reported by Patient Measurement Method Physical Exam Other Physical Findings: Gen - awake and alert Head and neck - normocephalic, atraumatic Cardiovascular - S1, S2 Lungs - prolonged end expiratory phase Abdomen - bowel sounds positive, soft Extremities - without edema Skin - normal skin turgor, no rashes Last 48 Hrs of Labs/Marcin: Laboratory Tests 10/25/17 0653: Anion Gap 5, Estimated GFR 32 L, BUN/Creatinine Ratio 21.3, CBC w Diff NO MAN DIFF REQ, RBC 4.40, MCV 77.5 L, MCH 25.5 L, MCHC 33.0, RDW 14.4, MPV 7.7, Gran % 54.5, Lymphocytes % 28.2, Monocytes % 13.6 H, Eosinophils % 3.3, Basophils % 0.4, Absolute Granulocytes 2.6, Absolute Lymphocytes 1.4, Absolute Monocytes 0.7 H, Absolute Eosinophils 0.2, Absolute Basophils 0 10/24/172033: Troponin I 0.04 10/24/17 1712: Anion Gap 11, Estimated GFR 35 L, BUN/Creatinine Ratio 22.0, Glucose 95, Calcium 8.8, Magnesium 1.7, Total Bilirubin 0.2, AST 27, ALT 39, Alkaline Phosphatase 92, Troponin I 0.04, Flq-F-Vjmveqwxtdy Pept 458 H, Total Protein 8.1, Albumin 4.1, Globulin 4.0, Albumin/Globulin Ratio 1.0 L, Lipase 308 H, D- Dimer High Sensitivty 233, CBC w Diff NO MAN DIFF REQ, RBC 4.60, MCV 77.9 L, MCH 25.3 L, MCHC 32.5 L, RDW 14.6 H, MPV 7.4, Gran % 57.6, Lymphocytes % 27.5 , Monocytes % 12.2 H, Eosinophils % 2.6, Basophils % 0.1, Absolute Granulocytes 3.2, Absolute Lymphocytes 1.5, Absolute Monocytes 0.7 H, Absolute Eosinophils 0.1, Absolute Basophils 0 Assessment/Plan Impression/Plan: Impression 67 year old woman. Known to me from the office. Presented for ongoing vague pains in extremities, abdomen and chest. I am involved in her care for her COPD and a workup of her lung nodule consistent with a malignant process per imaging. CT 08/2017 showed BRET 8mm now 1.9cm. This is intense SUV singal on the PET in the known left lung nodule and subcarinal and AP window lymph node. The patient is undecided which approach to pursue for diagnosis and staging purposes. She is scheduled to see myself and Dr. Spencer to pursue tissue diagnosis next week. She was initially inclined to pursue electromagnetic navigation bronchoscopy and possible mediastinoscopy, however she may elect a trans-thoracic approach which will limit the staging of disease, however, suggestive of spread. For her COPD she is maintained on BREO and proair for rescue. She has nebulized tx as well. Her respiratory status appears at baseline. Plan -TRC/Nebs -await decision from pt how to proceed with further diagnostic evaluation of lung nodules/mediastinal lymphadenopathy -pain evaluation per primary team DVT prophylaxis at all times Consult Acknowledgment - Thank you for your consult request.
--- NOTE | 2017-10-25 11:49 | PN- Att Addend ---
Attending Addendum Attending Brief Note No overnight complaints. Pain controlled. Wants to get choices of rehab placeement. This is a 67-year-old female with a past medical history significant for lung cancer with a new finding of a left sided mediastinal mass presenting to the hospital for evaluation of atypical chest pain. Place under observation status for chest pain control. Her chest pain is likely secondary to her underlying lung cancer and metastasis to the left mediastinum. Pulmoanry consulted. Follow recommendations. Presently we will control her pain with Percocet and morphine as needed for breakthrough pain. If pain contolled plan for discharge back to facility on PO meds. follow up with a oncologist for evaluation of her lung cancer as o/p. Admission Lab Results I reviewed the following labs: Laboratory Tests 10/25 10/24 0653 2034 Chemistry Sodium (137 - 145 mmol/L) 135 L Potassium (3.5 - 5.1 mmol/L) 4.4 Chloride (98 - 107 mmol/L) 95 L Carbon Dioxide (22 - 30 mmol/L) 34 H Anion Gap (5 - 16) 5 BUN (7 - 17 mg/dL) 34 H Creatinine (0.5 - 1.0 mg/dL) 1.6 H Estimated GFR (>60 ml/min) 32 L BUN/Creatinine Ratio (7 - 25 %) 21.3 Troponin I (< 0.11 ng/ml) 0.04 Hematology CBC w Diff NO MAN DIFF REQ WBC (4.8 - 10.8 /CUMM) 4.9 RBC (4.20 - 5.40 /CUMM) 4.40 Hgb (12.0 - 16.0 G/DL) 11.3 L Hct (37 - 47 %) 34.1 L MCV (81.0 - 99.0 FL) 77.5 L MCH (27.0 - 31.0 PG) 25.5 L MCHC (33.0 - 37.0 G/DL) 33.0 RDW (11.5 - 14.5 %) 14.4 Plt Count (130 - 400 /CUMM) 155 MPV (7.4 - 10.4 FL) 7.7 Gran % (42.2 - 75.2 %) 54.5 Lymphocytes % (20.5 - 51.1 %) 28.2 Monocytes % (1.7 - 9.3 %) 13.6 H Eosinophils % (0 - 5 %) 3.3 Basophils % (0.0 - 2.0 %) 0.4 Absolute Granulocytes (1.4 - 6.5 /CUMM) 2.6 Absolute Lymphocytes (1.2 - 3.4 /CUMM) 1.4 Absolute Monocytes (0.10 - 0.60 /CUMM) 0.7 H Absolute Eosinophils (0.0 - 0.7 /CUMM) 0.2 Absolute Basophils (0.0 - 0.2 /CUMM) 0 10/24 1712 Chemistry Sodium (137 - 145 mmol/L) 134 L Potassium (3.5 - 5.1 mmol/L) 4.2 Chloride (98 - 107 mmol/L) 96 L Carbon Dioxide (22 - 30 mmol/L) 28 Anion Gap (5 - 16) 11 BUN (7 - 17 mg/dL) 33 H Creatinine (0.5 - 1.0 mg/dL) 1.5 H Estimated GFR (>60 ml/min) 35 L BUN/Creatinine Ratio (7 - 25 %) 22.0 Glucose (65 - 99 mg/dL) 95 Calcium (8.4 - 10.2 mg/dL) 8.8 Magnesium (1.6 - 2.3 mg/dL) 1.7 Total Bilirubin (0.2 - 1.3 mg/dL) 0.2 AST (14 - 36 U/L) 27 ALT (9 - 52 U/L) 39 Alkaline Phosphatase (<127 U/L) 92 Troponin I (< 0.11 ng/ml) 0.04 Trf-B-Pypdvovdove Pept (<125 pg/mL) 458 H Total Protein (6.3 - 8.2 g/dL) 8.1 Albumin (3.5 - 5.0 g/dL) 4.1 Globulin (1.9 - 4.2 gm/dL) 4.0 Albumin/Globulin Ratio (1.1 - 2.2 %) 1.0 L Lipase (23 - 300 U/L) 308 H Coagulation D-Dimer High Sensitivty (0 - 243 ng/ml) 233 Hematology CBC w Diff NO MAN DIFF REQ WBC (4.8 - 10.8 /CUMM) 5.6 RBC (4.20 - 5.40 /CUMM) 4.60 Hgb (12.0 - 16.0 G/DL) 11.6 L Hct (37 - 47 %) 35.9 L MCV (81.0 - 99.0 FL) 77.9 L MCH (27.0 - 31.0 PG) 25.3 L MCHC (33.0 - 37.0 G/DL) 32.5 L RDW (11.5 - 14.5 %) 14.6 H Plt Count (130 - 400 /CUMM) 188 MPV (7.4 - 10.4 FL) 7.4 Gran % (42.2 - 75.2 %) 57.6 Lymphocytes % (20.5 - 51.1 %) 27.5 Monocytes % (1.7 - 9.3 %) 12.2 H Eosinophils % (0 - 5 %) 2.6 Basophils % (0.0 - 2.0 %) 0.1 Absolute Granulocytes (1.4 - 6.5 /CUMM) 3.2 Absolute Lymphocytes (1.2 - 3.4 /CUMM) 1.5 Absolute Monocytes (0.10 - 0.60 /CUMM) 0.7 H Absolute Eosinophils (0.0 - 0.7 /CUMM) 0.1 Absolute Basophils (0.0 - 0.2 /CUMM) 0 Admission Meds I reviewed the following Meds: Current Medications Sig/Robyn Start time Last Medication Dose Stop Time Status Admin Albuterol Sulfate 3 ML Q4P PRN 10/25 1145 AC 10/25 (Proventil) 1137 Albuterol Sulfate 2 PUF Q4-6 PRN PRN 10/25 0045 AC (Ventolin) Amlodipine Besylate 10 MG DAILY 10/25 09 AC 10/25 (Norvasc) 0800 Atorvastatin Calcium 40 MG QPM 10/25 2100 AC (Lipitor) Carvedilol 25 MG BID 10/25 09 AC 10/25 (Coreg) 0801 Furosemide 40 MG DAILY 10/25 09 AC 10/25 (Lasix) 0800 Gabapentin 300 MG TID 10/25 09 AC 10/25 (Neurontin) 0800 Heparin Sodium 5,000 UNIT Q8 10/25 0600 AC 10/25 (Porcine) 0514 Hydrochlorothiazide 12.5 MG DAILY 10/25 09 AC 10/25 (Hydrodiuril) 0800 Losartan Potassium 25 MG DAILY 10/25 09 AC 10/25 (Cozaar) 0800 Morphine Sulfate 2 MG Q4P PRN 10/24 2345 AC 10/25 (MORPHINE SULFATE) 1029 Omeprazole 40 MG DAILY AC 10/25 0700 AC 10/25 (Prilosec) 0514 Oxycodone/ 2 TAB Q6P PRN 10/25 0030 AC 10/25 Acetaminophen 0514 (Percocet) Phenytoin 200 MG BID 10/25 0900 AC 10/25 (Dilantin ER) 0801
[2017-10-25 14:37] VITALS: BP 138/78
--- NOTE | 2017-10-25 20:34 | PN- Housestaff ---
Subjective Follow-up For: Atypical chest pain, weakness Complaints: pain scale (0-10) (7/10) Subjective: Patient seen and examine on bed. She is doing good. There is no active complain. Her pain subsided after treatment. She denies fever, chills, palpitation, abdominal pain, diarrhea, burning micturition, headache, weight loss. Review of Systems Constitutional: Reports: see HPI. Objective Last 24 Hrs of Vital Signs/I&O Vital Signs Date Time Temp Pulse Resp B/P B/P Pulse O2 O2 Flow FiO2 Mean Ox Delivery Rate 10/25 1945 94 Nasal 3.0L Cannula 10/25 1633 Nasal 3.0L Cannula 10/25 1600 Nasal 3.0L Cannula 10/25 1437 98.3 71 16 138/78 96 Room Air 10/25 1140 Nasal 3.0L Cannula 10/25 1140 96 Nasal 3.0L Cannula 10/25 0801 60 140/98 10/25 0800 60 140/98 10/25 0800 60 140/98 10/25 0800 98 Nasal 3.0L Cannula 10/25 0629 98.1 69 20 140/98 95 Nasal Cannula 10/25 0000 92 Nasal 3.0L Cannula 10/24 2246 92 Nasal 3.0L Cannula 10/24 2243 98.0 80 20 160/82 90 Nasal Cannula 10/24 2101 97.8 81 20 148/79 97 Nasal 3.0L Cannula Intake & Output 10/25 1600 02 0800 08/02 0000 Intake Total 310 210 240 Output Total 300 Balance 310 -90 240 Intake, IV 10 10 Intake, Oral 300 200 240 Output, Urine 300 Patient 204 lb Weight Weight Reported by Patient Measurement Method Physical Exam General Appearance: Alert, Oriented X3, Cooperative, No Acute Distress Cardiovascular: Normal S1, Normal S2 Lungs: Clear to Auscultation, Normal Air Movement Abdomen: Normal Bowel Sounds, Soft, No Tenderness, No Hepatospenomegaly, No Masses Assessment/Plan Assessment: 67-year-old female past medical history of hypertension, left upper lobe lung mass, coronary artery disease status post right carotid endarterectomy, aortic stenosis status post prosthetic aortic wall replacement, hyperlipidemia presented to emergency department with chest pain and weakness. Problem list: -Atypical chest pain -Mass and her left lung -Anxiety/depression -Coronary artery disease Plan: Dr. Gann following this case. Anticipated discharge. -Pain is controlled -She will discharged to rehab -Her left lung upper lobe mass metastasizes to left lower lobe may be the pain is triggered by the mass. She have not decided yet how to approach for treatment of her lung mass. Dr. Gann and Dr. Spencer will discuss management after lung biopsy. -GI DVT prophylaxis -She is full code -Anticipated discharge; Problem List: 1. COPD (chronic obstructive pulmonary disease) 2. Lung mass 3. Abdominal pain Pain Ratin Pain Location: Left chest. Pain Goal: Remain pain free Pain Plan: Opoid Tomorrow's Labs & Rationales: cbc
[2017-10-25 21:15] VITALS: BP 145/65
[2017-10-26 06:48] VITALS: BP 126/80
--- NOTE | 2017-10-26 07:54 | PN- Housestaff ---
Subjective Follow-up For: Atypical chest pain, weakness, lung mass, Complaints: pain scale (0-10) (4) Subjective: Patient seen and examined on bed. He was sleeping this morning. He is complaining of pain in the left hypochondrium, 3/10, dull pain, no radiation, not associated with nausea vomiting. his pain and sleep improved compared to yesterday but she is feeling drowsy. She denies shortness of breath, abdominal pain, constipation, loose motion, fever and chills, headache, backache. Review of Systems Constitutional: Reports: see HPI. Objective Last 24 Hrs of Vital Signs/I&O Vital Signs Date Time Temp Pulse Resp B/P B/P Pulse O2 O2 Flow FiO2 Mean Ox Delivery Rate 10/26 0648 98.0 75 20 126/80 96 10/26 0000 Nasal 3.0L Cannula 10/25 2115 98.2 79 16 145/65 92 Nasal 3.0L Cannula 10/25 2058 79 142/75 10/25 1945 94 Nasal 3.0L Cannula 10/25 1633 Nasal 3.0L Cannula 10/25 1600 Nasal 3.0L Cannula 10/25 1437 98.3 71 16 138/78 96 Room Air 10/25 1140 Nasal 3.0L Cannula 10/25 1140 96 Nasal 3.0L Cannula 10/25 0801 60 140/98 08/02 0800 60 140/98 /02 0800 60 140/98 /02 0800 98 Nasal 3.0L Cannula Intake & Output 10/26 0800 08/03 0000 02 1600 Intake Total 200 975 310 Output Total Balance 200 975 310 Intake, IV 10 Intake, Oral 200 975 300 Number 1 Bowel Movements Physical Exam General Appearance: Alert, Oriented X3, Cooperative, Mild Distress Assessment/Plan Assessment: Assessment 59-year-old female with past medical history hypertension hyperlipidemia coronary artery disease, aortic stenosis status post prosthetic aVR, COPD on LTOT 3 L, diabetes mellitus, left upper lobe lung mass, anxiety and depression. She presented emergency department with a complaint of atypical chest pain and weakness. Problem list: -Left upper lobe lung mass metastasizes to left lung lower lobe. -Atypical chest pain -COPD -Weakness -Drowsy feelings Plan: -The pain is improved compared to yesterday at most likely due to the lung mass. Cardiac causes ruled out -She is following by Dr. Gann her welding machine setter with her lung mass size increase from 8 mm to 1.9 cm since 3 months. They are waiting for patient decision regarding the approach to the mass. -She feels drowsy this morning I think it may be due to gabapentin or due to pain medication. -We will hold gabapentin. - Head CT advised for suspected brain metastasis a few nonspecific changes are visualized within the subcortical white matter of the right and left frontal lobes which was not visible on the previous CT from 06/05/2017. -MRI of the brain without and with contrast is therefore recommended for better anatomic characterization of the intracranial anatomy. -We will observe her for the next 24 hour. -DVT prophylaxis -GI prophylaxis -She is full code -Ambulate according to her comfort level -Anticipated discharge in next 24 hour after discussing with shoe caser and welding machine setter Problem List: 1. COPD (chronic obstructive pulmonary disease) 2. Hypoxia Pain Ratin Pain Location: left hypochondrium Pain Goal: Remain pain free Pain Plan: Painkiller medication Tomorrow's Labs & Rationales: RFTs
[2017-10-26 08:06] LABS: ABSOLUTE BASOPHIL COUNT 0 /CUMM (0.0-0.2); ABSOLUTE EOSINOPHIL COUNT 0.2 /CUMM (0.0-0.7); ABSOLUTE GRANULOCYTE CT 2.8 /CUMM (1.4-6.5); ABSOLUTE LYMPH COUNT 1.3 /CUMM (1.2-3.4); ABSOLUTE MONOCYTE COUNT 0.9 /CUMM (0.10-0.60); BASOPHIL % 0.1 % (0.0-2.0); EOSINOPHIL % 4.2 % (0-5); GRANULOCYTE % 53.5 % (42.2-75.2); HEMATOCRIT 35.4 % (37-47); MEAN CORPUSCULAR HGB 25.4 PG (27.0-31.0); MEAN CORPUSCULAR HGB CONC 32.2 G/DL (33.0-37.0); MEAN CORPUSCULAR VOLUME 78.9 FL (81.0-99.0); MEAN PLATELET VOLUME 7.9 FL (7.4-10.4); PLATELET COUNT 165 /CUMM (130-400); RBC DISTRIBUTION WIDTH 14.6 % (11.5-14.5); RED BLOOD CELL CT 4.49 /CUMM (4.20-5.40); WHITE BLOOD CELL COUNT 5.3 /CUMM (4.8-10.8)
--- NOTE | 2017-10-26 10:05 | Discharge Summary ---
Visit Information Visit Dates Admission Date: 10/24/17 Discharge Date: 10/27/17 Hospital Course Course Attending Physician: Loyd Browne MD Primary Care Physician: Althea VALDOVINOS,Althea Hospital Course: 67-year-old female with a past medical history significant for lung cancer with a new finding of a left sided mediastinal mass presented to [facility] for evaluation of atypical chest pain. Recently discharged from the hospital and sent to an ECF a few weeks ago, during her previously hospitalization she was managed for similar chest pain which was found to be noncardiac in etiology. VS: stable PE:Diminshed breath sounds in all lung chase. Remainder of physical exam ws benign. CXR/CT: No new acute infectious pathology. Again imaging showed the mass lesion in the left upper lobe and metastatic nodule in the left lower lobe. Mediastinal lymphadenopathy remained unchanged. No evidence of metastatic disease in the abdomen or pelvis. Laboratory Tests 10/24/174: Troponin I 0.04 10/24/17 1712: Anion Gap 11, Estimated GFR 35 L, BUN/Creatinine Ratio 22.0, Glucose 95, Calcium 8.8, Magnesium 1.7, Total Bilirubin 0.2, AST 27, ALT 39, Alkaline Phosphatase 92, Troponin I 0.04, Hdg-S-Dvxeiwlfqwn Pept 458 H, Total Protein 8.1, Albumin 4.1, Globulin 4.0, Albumin/Globulin Ratio 1.0 L, Lipase 308 H, D- Dimer High Sensitivty 233, CBC w Diff NO MAN DIFF REQ, RBC 4.60, MCV 77.9 L, MCH 25.3 L, MCHC 32.5 L, RDW 14.6 H, MPV 7.4, Gran % 57.6, Lymphocytes % 27.5 , Monocytes % 12.2 H, Eosinophils % 2.6, Basophils % 0.1, Absolute Granulocytes 3.2, Absolute Lymphocytes 1.5, Absolute Monocytes 0.7 H, Absolute Eosinophils 0.1, Absolute Basophils 0 Trops:negative EKG: No new ischemic changes. Patient was admitted to gen med floor for management of non cardiac chest pain which was managed by opiods and APAP. Her CKD improved with IVF. On subsequent days, she did not complaint of any new episode of any new chest pain. Dr Gann (her leadite man) was also consulted. Patient wanted more time before making a decision regarding her lung mass workup. It was communicated to her by the medical team and Dr Gann, the importance of keeping her outpatient appt with Dr Gann and Dr Spencer (cardiothoracic) which was scheduled next week. On , pt was noted to be lethargic and off her baseline. Her Gabapentin dose was reduced from 300mg tid to 300mg in the context of CKD. Allergies: Coded Allergies: SHANI Inhibitors (Severe, ANGIODEMA 05/17/16) Penicillins (Severe, ANGIODEMA 05/17/16) shellfish derived (UNKNOWN PER PT EATS SHRIMP FINE 05/17/16) aspirin (BODY BREAKS OUT IN SWEATS, GI UPSET 05/17/16) Disposition Summary Disposition Principal Diagnosis: Atypical chest pain Additional Diagnosis: Worsening CKD Discharge Disposition: SNF Discharge Instructions General Discharge Information Code Status: Do Not Resucitate/Intubat Patient's Diet: REGULAR Patient's Activity: TOLERATED Follow-Up Instructions/Appts: Follow up with Dr Gann and Dr Spencer Medications at Discharge Discharge Medications: Stop taking the following medications: Alprazolam (Alprazolam) 0.5 MG TABLET ORAL DAILY NEEDED as needed for ANXIETY Qty = 15 Zolpidem Tartrate (Zolpidem Tartrate) 5 MG TABLET ORAL Every night as needed as needed for SLEEP Qty = 30 Oxycodone HCl/Acetaminophen (Percocet 5-325 MG Tablet) 5 MG-325 MG TABLET ORAL EVERY 4-6 HOURS NEEDED as needed for PAIN SCALE 4-6 (MODERATE) Qty = 36 Valsartan (Valsartan) 80 MG TABLET ORAL DAILY Qty = 30 Continue taking these medications: Atorvastatin Calcium (Lipitor) 40 MG TABLET 1 Tablet ORAL Every night Comments: Last Taken: 10/26/17 Time: 9 PM Carvedilol (Coreg) 25 MG TABLET 1 Tablet ORAL TWICE DAILY Comments: Last Taken: 10/27/17 Time: 9 AM Fluticasone/Vilanterol (Breo Ellipta 100-25 Mcg INH) 100 MCG-25 MCG/DOSE BLST.W.DEV 1 PUFF Inhale through mouth DAILY Qty = 60 Comments: NOT TAKEN IN HOSPITAL Omeprazole (Omeprazole) 40 MG CAPSULE.DR 1 Capsule ORAL DAILY Qty = 30 Comments: Last Taken: 10/27/17 Time: 9 AM Phenytoin Sodium Extended (Phenytoin Sodium Extended) 100 MG CAPSULE 2 Capsule ORAL TWICE DAILY Comments: Last Taken: 10/27/17 Time: 10 AM Albuterol Sulfate (Ventolin Hfa) 90 MCG HFA.AER.AD 2 Puff Inhale through mouth EVERY 4-6 HOURS NEEDED as needed for breath Comments: Last Taken: 10/25/17 9 AM Furosemide (Lasix) 40 MG TABLET 40 Milligram ORAL DAILY Qty = 30 Comments: Last Taken: 10/27/17 Time: 9 AM Amlodipine Besylate (Norvasc) 10 MG TABLET 10 Milligram ORAL DAILY Qty = 30 Comments: Last Taken: 10/27/17 Time: 9AM Hydrochlorothiazide (Hydrochlorothiazide) 12.5 MG CAPSULE 1 Capsule ORAL DAILY Qty = 30 Comments: Last Taken: 10/27/17 Time: 9 AM Losartan Potassium (Losartan Potassium) (Unknown Strength) TABLET 25 Milligram ORAL DAILY Qty = 14 Comments: NOT TAKEN IN HOSPITAL The following medications have been changed: Old: Gabapentin (Neurontin) 300 MG CAPSULE 1 Capsule ORAL THREE TIMES DAILY New: Gabapentin (Neurontin) 300 MG CAPSULE 300 Capsule ORAL DAILY Qty = 30 Comments: Last Taken: 10/27/17 Time: 9 AM Copies To: Althea VALDOVINOS,Althea; Azeem VALDOVINOS,Claude Attending MD Review Statement Documenting Attending: Loyd Browne MD Other Findings: Patient with significant improvement in mental status after discontinuation of gabapentin in presence of CKD. CT head and MRI brain without contrast (had elevated creatinine) no acute etiology, however concern is convexity mass. Vitals stabel and medically stabel for discharge. She has outpatient f/u appointment with Dr Gann on 11/[address] PCP Dr Oh and consider MRI o/p with contrast as better study to evalaute ?brain mass. She is being discharged to rehab facility.
[2017-10-26] MEDS ORDERED: NEURONTIN300 M1 PO (10:38)
--- NOTE | 2017-10-26 11:24 | Patient Discharge Instructions ---
Discharge Instructions General Discharge Information You were seen/treated for: Shortness of breath Special Instructions: Please f/u with your PCP within 1 week Please f/u with Dr Gann ([facility]) within 1 week Acute Coronary Syndrome Inclusion Criteria At DC or during hospital stay patient has or had the following: ACS DIAGNOSIS No Discharge Core Measures Meds if any: Prescribed or Continued at Discharge Meds if any: NOT Prescribed or Continued at Discharge Congestive Heart Failure Inclusion Criteria At DC or during hospital stay patient has or had the following: CHF DIAGNOSIS No Discharge Core Measures Meds if any: Prescribed or Continued at Discharge Meds if any: NOT Prescribed or Continued at Discharge Cerebrovascular accident Inclusion Criteria At DC or during hospital stay patient has or had the following: CVA/TIA Diagnosis No Discharge Core Measures Meds if any: Prescribed or Continued at Discharge Meds if any: NOT Prescribed or Continued at Discharge Venous thromboembolism Inclusion Criteria VTE Diagnosis No VTE Type NONE VTE Confirmed by (Test) NONE Discharge Core Measures - Per Current guidelines, there needs to be overlap - treatment for the first 5 days of Warfarin therapy. - If discharged on Warfarin prior to 5 days of - overlap therapy, the patient will need to be - assessed for post discharge needs including - *Post discharge parental anticoagulation - *Warfarin and/or parental anticoagulation education - *Follow up date to check INR post discharge At least 5 days overlap therapy as Inpatient No Meds if any: Prescribed or Continued at Discharge Note: Overlap Therapy is Warfarin and Anticoagulant Meds if any: NOT Prescribed or Continued at Discharge
--- NOTE | 2017-10-26 11:45 | PN- Att Addend ---
Attending Addendum Attending Brief Note 67-year-old female with a past medical history significant for lung cancer with a new finding of a left sided mediastinal mass presenting to the hospital for evaluation of atypical chest pain. Patient more drowsy this morning. No focal deficits. Received gabapentin this am in presence of CKD. Vitals stable. No tachycardia. Remains on baseline oxygen 3L at home. No chest pain, chills. PE unremarkable, lethargy+ but not acute distress Altered mental status likely medication induced gabapentin rule out mets to brain. Obtain CT head. Trial of narcan if no improvement. Discontinue gabapentin for now. Her chest pain is likely secondary to her underlying lung cancer and metastasis to the left mediastinum. Pulmoanry consulted. Follow recommendations. Pain controlled. Avoid opiates and sedatives for now. Discharge planning to [facility] as her clinical condition improves. anticipate tomorrow. follow up with a oncologist for evaluation of her lung cancer as o/p. Admission Lab Results I reviewed the following labs: Laboratory Tests 08/ 0700 Chemistry Sodium (137 - 145 mmol/L) 135 L Potassium (3.5 - 5.1 mmol/L) 4.1 Chloride (98 - 107 mmol/L) 97 L Carbon Dioxide (22 - 30 mmol/L) 30 Anion Gap (5 - 16) 8 BUN (7 - 17 mg/dL) 38 H Creatinine (0.5 - 1.0 mg/dL) 1.4 H Estimated GFR (>60 ml/min) 37 L BUN/Creatinine Ratio (7 - 25 %) 27.1 H Hematology CBC w Diff NO MAN DIFF REQ WBC (4.8 - 10.8 /CUMM) 5.3 RBC (4.20 - 5.40 /CUMM) 4.49 Hgb (12.0 - 16.0 G/DL) 11.4 L Hct (37 - 47 %) 35.4 L MCV (81.0 - 99.0 FL) 78.9 L MCH (27.0 - 31.0 PG) 25.4 L MCHC (33.0 - 37.0 G/DL) 32.2 L RDW (11.5 - 14.5 %) 14.6 H Plt Count (130 - 400 /CUMM) 165 MPV (7.4 - 10.4 FL) 7.9 Gran % (42.2 - 75.2 %) 53.5 Lymphocytes % (20.5 - 51.1 %) 24.8 Monocytes % (1.7 - 9.3 %) 17.4 H Eosinophils % (0 - 5 %) 4.2 Basophils % (0.0 - 2.0 %) 0.1 Absolute Granulocytes (1.4 - 6.5 /CUMM) 2.8 Absolute Lymphocytes (1.2 - 3.4 /CUMM) 1.3 Absolute Monocytes (0.10 - 0.60 /CUMM) 0.9 H Absolute Eosinophils (0.0 - 0.7 /CUMM) 0.2 Absolute Basophils (0.0 - 0.2 /CUMM) 0 Admission Meds I reviewed the following Meds: Current Medications Sig/Robyn Start time Last Medication Dose Stop Time Status Admin Albuterol Sulfate 3 ML Q4P PRN 10/25 1145 AC 10/25 (Proventil) 1945 Albuterol Sulfate 2 PUF Q4-6 PRN PRN 10/25 0045 AC (Ventolin) Amlodipine Besylate 10 MG DAILY 10/25 09 AC 10/26 (Norvasc) 0859 Atorvastatin Calcium 40 MG QPM 10/25 2100 AC 10/25 (Lipitor) 2055 Carvedilol 25 MG BID 10/25 0900 AC 10/26 (Coreg) 0900 Furosemide 40 MG DAILY 10/25 09 AC 10/26 (Lasix) 0859 Gabapentin 300 MG DAILY 10/27 0900 AC (Neurontin) Heparin Sodium 5,000 UNIT Q8 10/25 0600 AC 10/26 (Porcine) 0520 Hydrochlorothiazide 12.5 MG DAILY 10/25 0900 AC 10/26 (Hydrodiuril) 0859 Insulin Aspart 0 TIDAC 10/25 1700 AC (NovoLOG) Losartan Potassium 25 MG DAILY 10/25 0900 AC 10/26 (Cozaar) 0859 Morphine Sulfate 2 MG Q4P PRN 10/25 1300 AC (MORPHINE SULFATE) Omeprazole 40 MG DAILY AC 10/25 0700 AC 10/26 (Prilosec) 0520 Oxycodone HCl 5 MG Q4-6 PRN PRN 10/25 1300 AC 10/25 (Roxicodone) 2055 Oxycodone/ 2 TAB Q4-6 PRN PRN 10/25 1300 AC Acetaminophen (Percocet) Phenytoin 200 MG BID 10/25 0900 AC 10/26 (Dilantin ER) 09
--- NOTE | 2017-10-26 12:21 | CT SCAN REPORT ---
EXAMINATION: CT HEAD WITHOUT CONTRAST CLINICAL INFORMATION: Acute intracranial pathology. COMPARISON: CT scan of the head 06/05/2017. TECHNIQUE: Contiguous axial imaging was performed from the skull base to vertex without intravenous administration of contrast. DLP: 621.02 mGy-cm FINDINGS: There are a few small nonspecific foci of hypoattenuation within the subcortical white matter of the right and left frontal lobe. These findings were not visible on the previous examination from 06/05/2017. There is no acute intracranial hemorrhage or abnormal extra axial collection. No intracranial mass effect or midline shift. Lateral and third ventricles are proportionate to the subarachnoid spaces. No hydrocephalus. The calvarium and skull base are intact. Mastoid air cells and middle ear cavities are well-aerated. Visualized paranasal sinuses are well-aerated. IMPRESSION: A few nonspecific changes are visualized within the subcortical white matter of the right and left frontal lobes. These findings were not visible on the previous CT scan of the head from 06/05/2017. A dedicated MRI of the brain without and with contrast is therefore recommended for better anatomic characterization of the intracranial anatomy.
--- NOTE | 2017-10-26 12:48 | PN- Pulmonary ---
Subjective HPI/Critical Care Issues: pt seen and examined, groggy and sleepy, however appropriate and easily arousable respiratory status at baseline Objective Current Medications: Current Medications Sig/Robyn Start time Last Medication Dose Route Stop Time Status Admin Albuterol Sulfate 3 ML Q4P PRN 10/25 1145 AC 10/25 INH 1945 Albuterol Sulfate 2 PUF Q4-6 PRN PRN 10/25 0045 AC INH Amlodipine Besylate 10 MG DAILY 10/25 09 AC 10/26 PO 0859 Atorvastatin Calcium 40 MG QPM 10/25 2100 AC 10/25 PO 2055 Carvedilol 25 MG BID 10/25 09 AC 10/26 PO 0900 Furosemide 40 MG DAILY 10/25 899 AC 10/26 PO 0859 Gabapentin 300 MG DAILY 10/27 09 AC PO Gabapentin 300 MG TID 10/25 09 DC 10/26 PO 0859 Heparin Sodium 5,000 UNIT Q8 10/25 0600 AC 10/26 (Porcine) SC 0520 Hydrochlorothiazide 12.5 MG DAILY 10/25 09 AC 10/26 PO 0859 Insulin Aspart 0 TIDAC 10/25 1700 AC SC Insulin Aspart 5 UNITS ONCE ONE 10/25 1300 DC 10/25 SC 10/25 1301 1307 Losartan Potassium 25 MG DAILY 10/25 09 AC 10/26 PO 0859 Morphine Sulfate 2 MG Q4P PRN 10/25 1300 AC IV Morphine Sulfate 2 MG Q4P PRN 10/24 2345 DC 10/25 IV 1029 Omeprazole 40 MG DAILY AC 10/25 0700 AC 10/26 PO 0520 Oxycodone HCl 5 MG Q4-6 PRN PRN 10/25 1300 AC 10/25 PO 2055 Oxycodone/ 2 TAB Q4-6 PRN PRN 10/25 1300 AC Acetaminophen PO Oxycodone/ 2 TAB Q6P PRN 10/25 0030 DC 10/25 Acetaminophen PO 0514 Patient Medication 1 ED ONE ONE 10/25 1430 DC 10/25 Teaching ED 10/25 1431 1445 Phenytoin 200 MG BID 10/25 09 AC 10/26 PO 0900 Vital Signs & I&O Last 24 Hrs of Vitals and I&O: Vital Signs Date Time Temp Pulse Resp B/P B/P Pulse O2 O2 Flow FiO2 Mean Ox Delivery Rate 10/26 913 96 Nasal 3.0L Cannula 08/03 0900 98.0 75 20 126/80 / 0859 98.0 75 20 126/80 / 0859 98.0 75 20 126/80 10/26 0800 96 Nasal 3.0L Cannula 10/26 0648 98.0 75 20 126/80 96 08/ 0000 Nasal 3.0L Cannula 10/25 2115 98.2 79 16 145/65 92 Nasal 3.0L Cannula 10/25 2058 79 142/75 10/25 1945 94 Nasal 3.0L Cannula 10/25 1633 Nasal 3.0L Cannula 10/25 1600 Nasal 3.0L Cannula 10/25 1437 98.3 71 16 138/78 96 Room Air Intake & Output 10/26 1600 10/26 0800 10/26 0000 Intake Total 200 975 Output Total Balance 200 975 Intake, Oral 200 975 Number 1 Bowel Movements Exam Other Physical Findings: Gen - awake Head and neck - normocephalic, atraumatic Cardiovascular - S1, S2 Lungs - prolonged end expiratory phase Abdomen - bowel sounds positive, soft Extremities - without edema Skin - normal skin turgor, no rashes Results Last 24 Hrs of Lab Results: Laboratory Tests 10/26/17 0700: Anion Gap 8, Estimated GFR 37 L, BUN/Creatinine Ratio 27.1 H, CBC w Diff NO MAN DIFF REQ, RBC 4.49, MCV 78.9 L, MCH 25.4 L, MCHC 32.2 L, RDW 14.6 H, MPV 7.9, Gran % 53.5, Lymphocytes % 24.8, Monocytes % 17.4 H, Eosinophils % 4.2, Basophils % 0.1, Absolute Granulocytes 2.8, Absolute Lymphocytes 1.3, Absolute Monocytes 0.9 H, Absolute Eosinophils 0.2, Absolute Basophils 0 Impression/Plan Impression/Plan Impression/Plan: Impression 67 year old woman BRET 8mm now 1.9cm. This is intense SUV singal on the PET in the known left lung nodule and subcarinal and AP window lymph node. The patient is undecided which approach to pursue for diagnosis and staging purposes. She is scheduled to see myself and Dr. Spencer to pursue tissue diagnosis next week. She was initially inclined to pursue electromagnetic navigation bronchoscopy and possible mediastinoscopy, however she may elect a trans-thoracic approach which will limit the staging of disease, however, suggestive of spread. For her COPD she is maintained on BREO and proair for rescue. She has nebulized tx as well. Her respiratory status appears at baseline. Plan -TRC/Nebs -await decision from pt how to proceed with further diagnostic evaluation of lung nodules/mediastinal lymphadenopathy -pain evaluation per primary team -she has an apt in the office to see myself and Dr. Spencer together 11/02 DVT prophylaxis at all times will sign off for now
[2017-10-26 15:02] VITALS: BP 128/70
--- NOTE | 2017-10-26 16:27 | MRI REPORT ---
EXAMINATION: MR BRAIN WITHOUT CONTRAST CLINICAL INFORMATION: Evaluate for mass or stroke. COMPARISON: CT scan of the head 10/26/2017. TECHNIQUE: MRI of the brain without contrast was obtained using routine sequences. FINDINGS: Patient motion degrades image quality therefore the diagnostic accuracy of this examination is significantly limited. There appears to be a dural based left convexity mass over the left superior parietal lobe best illustrated on axial T2 FLAIR image 6 of 20 series 8. Additional postcontrast images of the brain are therefore recommended for better anatomic characterization of this finding. There is a linear focus of DWI signal hyperintensity within the right frontal centrum semiovale with no corresponding low ADC values. This finding therefore most likely represents pseudonormalization of a subacute infarct. A small subacute infarct within the left centrum semiovale is also suspected. There are a few punctate foci of magnetic susceptibility artifact for instance within the right precentral gyrus and right middle frontal gyrus near the vertex. There are numerous foci of T2 FLAIR signal hyperintensity within the periventricular white matter and mary most likely represent a chronic manifestation of small vessel ischemia. Intracranial vascular flow voids are grossly maintained. Midline structures including the cervicomedullary junction are normal. Bone marrow signal intensity is normal. There is no mastoid or middle ear effusion. Mild paranasal sinus disease. Globes and orbits are symmetric. IMPRESSION: Patient motion degrades image quality therefore the diagnostic accuracy of this examination is limited. There is a suspected based left convexity mass over the left parietal lobe. Additional postcontrast images are therefore recommended for better anatomic characterization of this finding. A few subacute white matter infarcts are visualized within the right and left centrum semiovale. Scattered chronic small vessel ischemic changes are also visualized within the periventricular white matter and mary.
[2017-10-26 23:03] VITALS: BP 140/80
--- NOTE | 2017-10-27 05:35 | PN- Housestaff ---
Kip VALDOVINOS,Da 10/27/17 0535: Subjective Follow-up For: Atypical chest pain Subjective: Seen and examined at bedside while she was asleep. Awoken by verbal stimuli. She appears not to be at her baseline more engaging in conversation which is a big difference compared to yesterday morning when she was found to be lethargic. She does still endorse her chest wall pain but reports that it's better compared to previous days. She denies any shortness of breath, palpitation, fever/ chills, or any focal neurological deficit. Review of Systems Constitutional: Reports: see HPI. Objective Last 24 Hrs of Vital Signs/I&O Vital Signs Date Time Temp Pulse Resp B/P B/P Pulse O2 O2 Flow FiO2 Mean Ox Delivery Rate 10/27 1343 95 Nasal 3.0L Cannula 10/27 1123 97.9 72 20 122/78 10/27 0800 96 Nasal 3.0L Cannula 10/27 0737 97.9 72 20 122/78 10/27 0736 97.9 72 20 122/78 10/27 0736 97.9 72 122/78 10/27 0624 97.9 72 20 122/78 96 Nasal 3.0L Cannula 10/27 0000 95 Nasal 3.0L Cannula 10/26 2303 98.8 81 18 140/80 95 Room Air 3.0L Intake & Output 10/27 1600 10/27 0800 10/27 0000 Intake Total 200 Output Total 600 Balance -600 200 Intake, IV 0 Intake, Oral 200 Number 0 Bowel Movements Output, Urine 600 Physical Exam General Appearance: Alert, Oriented X3, Cooperative Lungs: Clear to Auscultation Abdomen: Normal Bowel Sounds, Soft, No Tenderness Neurological: Normal Speech, Normal Tone, Sensation Intact, Cranial Nerves 3-12 NL Current Medications: Current Medications Sig/Robyn Start time Last Medication Dose Route Stop Time Status Admin Albuterol Sulfate 3 ML Q4P PRN 10/25 1145 AC 10/25 INH 1945 Albuterol Sulfate 2 PUF Q4-6 PRN PRN 10/25 0045 AC INH Amlodipine Besylate 10 MG DAILY 10/25 899 AC 10/26 PO 0859 Atorvastatin Calcium 40 MG QPM 10/25 2100 AC 10/26 PO 2048 Carvedilol 25 MG BID 10/25 899 AC 10/26 PO 2047 Furosemide 40 MG DAILY 10/25 899 AC 10/26 PO 0859 Gabapentin 300 MG DAILY 10/27 09 AC PO Gabapentin 300 MG TID 10/25 0900 DC 10/26 PO 0859 Heparin Sodium 5,000 UNIT Q8 10/25 06 AC 10/26 (Porcine) SC 2050 Hydrochlorothiazide 12.5 MG DAILY 10/25 09 AC 10/26 PO 0859 Insulin Aspart 0 TIDAC 10/25 1700 AC 10/26 SC 1251 Lorazepam 0.5 MG ONCE ONE 10/26 1445 DC 10/26 IV 10/26 1446 1456 Lorazepam 1 MG ONCE ONE 10/26 1430 CAN IM 10/26 1431 Lorazepam 0.5 MG ONE ONE 10/26 1430 CAN PO 10/26 1431 Losartan Potassium 25 MG DAILY 10/25 899 AC 10/26 PO 0859 Melatonin 5 MG AT BEDTIME 10/26 2345 AC 10/27 PO 0025 Morphine Sulfate 2 MG Q4P PRN 10/25 1300 AC IV Omeprazole 40 MG DAILY AC 10/25 0700 AC 10/26 PO 0520 Oxycodone HCl 5 MG Q4-6 PRN PRN 10/25 1300 AC 10/27 PO 0027 Oxycodone/ 2 TAB Q4-6 PRN PRN 10/25 1300 AC Acetaminophen PO Patient Medication 1 ED ONE ONE 10/26 1515 DC 10/26 Teaching ED 10/26 1516 1723 Phenytoin 200 MG BID 10/25 09 AC 10/26 PO 2049 Last 24 Hrs of Lab/Marcin Results Last 24 Hrs of Labs/Mics: Laboratory Tests 10/26/17 0700: Anion Gap 8, Estimated GFR 37 L, BUN/Creatinine Ratio 27.1 H, CBC w Diff NO MAN DIFF REQ, RBC 4.49, MCV 78.9 L, MCH 25.4 L, MCHC 32.2 L, RDW 14.6 H, MPV 7.9, Gran % 53.5, Lymphocytes % 24.8, Monocytes % 17.4 H, Eosinophils % 4.2, Basophils % 0.1, Absolute Granulocytes 2.8, Absolute Lymphocytes 1.3, Absolute Monocytes 0.9 H, Absolute Eosinophils 0.2, Absolute Basophils 0 Assessment/Plan Assessment: Assessment 59-year-old pleasant lady with significant comorbidities including CAD, aortic stenosis status post aortic valve repairment, COPD on 3 L oxygen, diabetes, left upper lung mass, anxiety and depression admitted for atypical chest pain. ACS was ruled out. Impression and plan Patient chest wall pain which has been attributed to her lung mass seems to be controlled. Her lethargic status yesterday was most likely secondary to gabapentin and opioid in the setting of worsening renal failure. Today she is more alert oriented, this is after her gabapentin dose was decreased from 3 times a day to once a day and her opioid medication minimized. Positive MRI findings of suspected based left convexity mass over the left parietal lobe. The study was limited by inability to use gadolinium in the setting of kidney failure. We may consult radiology regarding the best modality to obtain postcontrast images for better characterization of the images. Clinically the patient does not have any new focal neurological deficits or seizure-like activities, therefore unless her clinical status deteriorates follow-up MRI can be done outpatient basis. Regarding her lung mass she's been followed by Dr. Gann patient is aware that she has an appointment next week for discussion of biopsy and staging.. She is also scheduled for a permanent cardiothoracic (Dr. Spencer). Anticipated discharge today. Problem List: 1. Chest pain, unspecified 2. Lung mass Pain Ratin Pain Location: diffuse Pain Goal: Pain 4 or less Pain Plan: per pathway Tomorrow's Labs & Rationales: none-discharge Loyd Browne 10/27/17 1007: Attending MD Review Statement Attending Statement Attending MD Statement: examined this patient, discuss w/resident/PA/DYE MACHINE TENDER, agreed w/resident/PA/DYE MACHINE TENDER, discussed with family, reviewed EMR data (avail), discussed with nursing, discussed with case mgmt, reviewed images, amended to note Attending Assessment/Plan: Patient with significant improvement in mental status after discontinuation of gabapentin and sedatives in presence of CKD. CT head and MRI brain without contrast (had elevated creatinine) no acute etiology, however concern is convexity mass. Vitals stabel and medically stabel for discharge. She has outpatient f/u appointment with Dr Gann on 11/[address] PCP Dr Oh and consider MRI o/p with contrast as better study to evalaute ?brain mass. She is being discharged to rehab facility.
[2017-10-27 06:24] VITALS: BP 122/78
[2017-10-27 11:23] VITALS: BP 122/78
== END 2017-10-27 14:27 ==
LOC: ERH 16:48 → ERHI 19:34 → 2NA 19:34 → ENRESERV 21:45 → ENTRNSPT 21:58 → EDTRNSPT 22:12 → EDTRNSPTSTS 22:12 → 2NA 22:17 → CMPTRNSPT 22:36 → 2NA 10-25 08:14 → ENPENDDIS 10-27 10:50 → 2NA 10-27 14:27
PROVIDERS: Physician Assistant Medical; Student in an Organized Health Care Education/Training Program
DX: R07.89 Other chest pain (principal); R91.8 Other nonspecific abnormal finding of lung field; J44.9 Chronic obstructive pulmonary disease, unspecified; Z99.81 Dependence on supplemental oxygen; R53.1 Weakness; I70.0 Atherosclerosis of aorta; I25.10 Atherosclerotic heart disease of native coronary artery without angina pectoris; I10 Essential (primary) hypertension; F17.210 Nicotine dependence, cigarettes, uncomplicated; Z95.4 Presence of other heart-valve replacement; E78.5 Hyperlipidemia, unspecified; E11.9 Type 2 diabetes mellitus without complications
CPT/HCPCS: 1263; 1328; 1425; 1530; 1748; 70551; 36415; 36592; 71045; 74176; 82436; 93005; 93010; 96372; 96374; 96375; G0378; J0131; J1644; J1815; J2060; J3490